=== PATIENT | female | born 1985 | race Caucasian/White ===

== ENCOUNTER 2018-01-01 09:14 | Emergency (ER) | payer SELFPAY ==
--- NOTE | 2018-01-01 09:23 | ER ---
Nurse's Notes [facility] Name: Mira Trinidad Age: 32 yrs Sex: Female : 1985 Arrival Date: 01/01/2018 Time: 09:17 Bed Waiting Private MD: None, None Diagnosis: Otalgia, right ear Presentation: 01/01 09:18 Presenting complaint: Patient states: Right ear pain since sunday. Transition of la1 care: patient was not received from another setting of care. Onset of symptoms was January 01, 2018. Risk Assessment: Do you want to hurt yourself or someone else? Patient reports no desire to harm self or others. Initial Sepsis Screen: Does the patient meet any 2 criteria? No. Patient's initial sepsis screen is negative. Does the patient have a suspected source of infection? No. Patient's initial sepsis screen is negative. Care prior to arrival: None. 09:18 Method Of Arrival: Ambulatory la1 09:18 Acuity: MARK ANTHONY 5 la1 Historical: - Allergies: 09:19 No Known Allergies; la1 - PMHx: 09:19 Asthma; la1 - Immunization history:: Adult Immunizations up to date. - Social history:: Smoking status: Patient uses tobacco products, smokes one-half pack cigarettes per day. - Ebola Screening: : No symptoms or risks identified at this time. Screenin:20 Abuse screen: Denies threats or abuse. Nutritional screening: No deficits noted. la1 Tuberculosis screening: No symptoms or risk factors identified. Fall Risk None identified. Assessment: 09:20 General: Appears in no apparent distress. Behavior is calm, cooperative. Pain: la1 Complains of pain in right ear. Neuro: Level of Consciousness is awake, alert, obeys commands, Oriented to person, place, time, situation. Cardiovascular: Capillary refill < 3 seconds Patient's skin is warm and dry. Respiratory: Airway is patent Respiratory effort is even, unlabored, Respiratory pattern is regular, symmetrical. GI: No signs and/or symptoms were reported involving the gastrointestinal system. : No signs and/or symptoms were reported regarding the genitourinary system. EENT: Ear canal clear on right ear and left ear. Vital Signs: 09:19 BP 154 / 98; Pulse 95; Resp 18; Temp 97.7(TE); Pulse Ox 100% on R/A; Weight 68.04 kg; la1 Height 5 ft. 6 in. (167.64 cm); 09:19 Body Mass Index 24.21 (68.04 kg, 167.64 cm) la1 ED Course: 09:17 Patient arrived in ED. mr 09:18 None, None is Private Physician. mr 09:18 [facility] Demp[facility]C [facility]. kb 09:18 Morteza Campos MD is Attending Physician. kb 09:19 Triage completed. la1 09:20 Arm band placed on left wrist. la1 09:20 Patient has correct armband on for positive identification. la1 09:20 No provider procedures requiring assistance completed. Patient did not have IV access la1 during this emergency room visit. Administered Medications: No medications were administered Outcome: :23 Discharge ordered by . kb 09:25 Discharged to home ambulatory. la1 09:25 Condition: stable 09:25 Discharge instructions given to patient, Instructed on discharge instructions, follow up and referral plans. Demonstrated understanding of instructions, follow-up care. 09:25 Patient left the ED. la1 Signatures: Astrid Dempsey FNP-C FNP-Gia Deanne Guaman, Shun, RN RN la1
--- NOTE | 2018-01-01 09:23 | EDPHYS ---
Physician Documentation [facility] Name: Mira Trinidad Age: 32 yrs Sex: Female : 1985 Arrival Date: 01/01/2018 Time: 09:17 Bed Waiting Private MD: None, None ED Physician Morteza Campos HPI: 01/01 09:24 This 32 yrs old Female presents to ER via Ambulatory with complaints of Ear kb Pain. 09:24 The patient presents with pain, moderate. The complaints affect the right ear. Onset: kb The symptoms/episode began/occurred 5 day(s) ago. Modifying factors: The symptoms are alleviated by nothing, the symptoms are aggravated by nothing. Associated signs and symptoms: The patient has no apparent associated signs or symptoms. Severity of symptoms: At their worst the symptoms were moderate in the emergency department the symptoms are unchanged. The patient has not experienced similar symptoms in the past. The patient has not recently seen a physician. Historical: - Allergies: 09:19 No Known Allergies; la1 - PMHx: 09:19 Asthma; la1 - Immunization history:: Adult Immunizations up to date. - Social history:: Smoking status: Patient uses tobacco products, smokes one-half pack cigarettes per day. - Ebola Screening: : No symptoms or risks identified at this time. ROS: 09:24 Constitutional: Negative for fever, chills, and weight loss, Cardiovascular: Negative kb for chest pain, palpitations, and edema, Respiratory: Negative for shortness of breath, cough, wheezing, and pleuritic chest pain, Abdomen/GI: Negative for abdominal pain, nausea, vomiting, diarrhea, and constipation, Back: Negative for injury and pain, : Negative for injury, bleeding, discharge, and swelling, MS/Extremity: Negative for injury and deformity, Skin: Negative for injury, rash, and discoloration, Neuro: Negative for headache, weakness, numbness, tingling, and seizure. 09:24 ENT: Positive for ear pain. Exam: 09:24 Constitutional: This is a well developed, well nourished patient who is awake, alert, kb and in no acute distress. Head/Face: Normocephalic, atraumatic. ENT: Nares patent. No nasal discharge, no septal abnormalities noted. Tympanic membranes are normal and external auditory canals are clear. Oropharynx with no redness, swelling, or masses, exudates, or evidence of obstruction, uvula midline. Mucous membranes moist. Neck: Trachea midline, no thyromegaly or masses palpated, and no cervical lymphadenopathy. Supple, full range of motion without nuchal rigidity, or vertebral point tenderness. No Meningismus. Chest/axilla: Normal chest wall appearance and motion. Nontender with no deformity. No lesions are appreciated. Cardiovascular: Regular rate and rhythm with a normal S1 and S2. No gallops, murmurs, or rubs. Normal PMI, no JVD. No pulse deficits. Respiratory: Lungs have equal breath sounds bilaterally, clear to auscultation and percussion. No rales, rhonchi or wheezes noted. No increased work of breathing, no retractions or nasal flaring. Abdomen/GI: Soft, non-tender, with normal bowel sounds. No distension or tympany. No guarding or rebound. No evidence of tenderness throughout. Skin: Warm, dry with normal turgor. Normal color with no rashes, no lesions, and no evidence of cellulitis. MS/ Extremity: Pulses equal, no cyanosis. Neurovascular intact. Full, normal range of motion. Neuro: Awake and alert, GCS 15, oriented to person, place, time, and situation. Cranial nerves II-XII grossly intact. Motor strength 5/5 in all extremities. Sensory grossly intact. Cerebellar exam normal. Normal gait. Vital Signs: 09:19 BP 154 / 98; Pulse 95; Resp 18; Temp 97.7(TE); Pulse Ox 100% on R/A; Weight 68.04 kg; la1 Height 5 ft. 6 in. (167.64 cm); 09:19 Body Mass Index 24.21 (68.04 kg, 167.64 cm) la1 MDM: 09:18 Patient medically screened. kb 09:24 Data reviewed: vital signs, nurses notes. Data interpreted: Pulse oximetry: on room air kb is 100 %. Interpretation: normal. Counseling: I had a detailed discussion with the patient and/or guardian regarding: the historical points, exam findings, and any diagnostic results supporting the discharge/admit diagnosis, the need for outpatient follow up, an ENT specialist, to return to the emergency department if symptoms worsen or persist or if there are any questions or concerns that arise at home. Administered Medications: No medications were administered Disposition: 18:40 Co-signature as Attending Physician, Morteza Campos MD available for consultation at ps1 all times. Disposition: 01/01/18 09:23 Discharged to Home. Impression: Otalgia, right ear. - Condition is Stable. - Discharge Instructions: Earache, Adult. - Medication Reconciliation Form, Thank You Letter, Antibiotic Education, Prescription Opioid Use, Work release form form. - Follow up: Emergency Department; When: As needed; Reason: Worsening of condition. Follow up: Private Physician; When: 2 - 3 days; Reason: Recheck today's complaints, Continuance of care, Re-evaluation by your physician. Signatures: Astrid Dempsey, JAYDEC [employer] THREADING MACHINE FEEDER-Shun Jiang RN RN la1 Morteza Campos MD MD ps1 Corrections: (The following items were deleted from the chart) 09:25 09:23 01/01/2018 09:23 Discharged to Home. Impression: Otalgia, right ear. Condition is la1 Stable. Forms are Work release form, Medication Reconciliation Form, Thank You Letter, Antibiotic Education, Prescription Opioid Use. Follow up: Emergency Department; When: As needed; Reason: Worsening of condition. Follow up: Private Physician; When: 2 - 3 days; Reason: Recheck today's complaints, Continuance of care, Re-evaluation by your physician. kb
[2018-01-01 09:32] VITALS: BP 154/98; TEMP 97.7; O2SAT 100
== END 2018-01-01 09:25 | disposition home or self-care (01) ==
LOC: ER 09:14
DX: H92.01 Otalgia, right ear (principal); F17.210 Nicotine dependence, cigarettes, uncomplicated
CPT/HCPCS: 99281

== ENCOUNTER 2018-03-26 11:12 | Emergency (ER) | payer SELFPAY ==
[2018-03-26 12:09] LABS: Absolute Lymphocytes (CBC) 2.7 K/uL (0.7-4.9); Absolute Monocytes 1.2 K/uL (0.1-1.3); Absolute Neutrophil 8.9 K/uL (1.8-8.0); Basophils % 0.6 % (0-1.3); Eosinophils % 1.5 % (0-4.4); Hematocrit 40.4 % (36.0-45.0); Lymphocytes % 20.7 % (15.3-44.8); MPV 9.6 fL (7.6-11.3); RBC Red Blood Cell Count 4.67 M/uL (3.86-4.86)
[2018-03-26 12:22] LABS: Potassium 3.9 mmol/L (3.5-5.1)
--- NOTE | 2018-03-26 12:42 | RAD REPORT ---
EXAM DESCRIPTION: CT - CTFBWCON CLINICAL HISTORY: right facial swelling Dental abscess. COMPARISON: No comparisons TECHNIQUE: Axial 2 mm thick images of the face were obtained with sagittal and coronal reconstructio n images. All CT scans are performed using dose optimization technique as appropriate and may include automated exposure control or mA/KV adjustment according to patient size. FINDINGS: Periapical abscess is seen measuring 5 mm involving the right maxillary first premolar. Th ere is adjacent subperiosteal abscess present measuring 16 x 5 mm along the buccal surface of the max illa. Significant right-sided facial soft tissue swelling. Poor dentition with erosive changes and periapical abscess also seen involving the right posterior ma ndibular molars.No mandibular osteomyelitis. There is trace fluid is present in the right maxillary sinus. Mild mucoperiosteal thickening is seen of both maxillary antra and the anterior ethmoid air cells and right frontal sinus. Calcification is seen measuring 5 mm adjacent to the right submandibular gland may represent a saliva ry gland duct stone. Several prominent submandibular lymph nodes are present. The globes and orbital contents are grossly unremarkable. IMPRESSION: Significant right-sided facial soft tissue swelling likely result of subperiosteal odont ogenic abscess (16 x 5 mm) along the right maxilla buccal surface. Right submandibular sialolithiasis suspected.
[2018-03-26] MEDS ORDERED: BUPIVACAINE 0.5% PF 10 ML VIAL ONE (13:49)
[2018-03-26] MEDS ORDERED: LIDOCAINE 1% W/EPI 1:100,000 MDV 50 ML VIAL ONE (13:49)
[2018-03-26] MEDS ORDERED: DEXAMETHASONE 10 MG/ML VIAL ONE (14:04)
[2018-03-26] MEDS ORDERED: CLINDAMYCIN 900MG/D5W 900 MG/50 ML IVPB IV ONE (14:05)
[2018-03-26] MEDS ORDERED: MORPHINE 4 MG/ML SYR ONE (14:05)
[2018-03-26] MEDS ORDERED: MEPERIDINE HCL 25 MG/0.5 ML ONE (14:45)
--- NOTE | 2018-03-26 15:08 | ER ---
Nurse's Notes [facility] Name: Mira Trinidad Age: 32 yrs Sex: Female : 1985 Arrival Date: 03/26/2018 Time: 11:14 Bed Treatment Private MD: None, None Diagnosis: Subperiosteal odontogenic abscess;Sialolithiasis-Right submandibular Presentation: 03/26 11:21 Presenting complaint:. Transition of care: patient was not received from another setting of care. Onset of symptoms was March 26, 2018. Risk Assessment: Do you want to hurt yourself or someone else? Patient reports no desire to harm self or others. Initial Sepsis Screen: Does the patient meet any 2 criteria? No. Patient's initial sepsis screen is negative. Does the patient have a suspected source of infection? No. Patient's initial sepsis screen is negative. Care prior to arrival: None. 11:21 Method Of Arrival: Ambulatory sg 11:21 Acuity: MARK ANTHONY 3 sg 11:22 Presenting complaint: Patient states: Right sided upper jaw pain with swelling this sg morning, reports was recently sick with viral infection and then this showed up. 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 - Social history:: Smoking status: Patient uses tobacco products, 10 per day. - Ebola Screening: : Patient negative for fever greater than or equal to 101.5 degrees Fahrenheit, and additional compatible Ebola Virus Disease symptoms Patient denies exposure to infectious person Patient denies travel to an Ebola-affected area in the 21 days before illness onset No symptoms or risks identified at this time. Screenin:37 Abuse screen: Denies threats or abuse. Denies injuries from another. Nutritional sg screening: No deficits noted. Tuberculosis screening: No symptoms or risk factors identified. Never had TB. Fall Risk None identified. Assessment: 11:34 General: Appears in no apparent distress. comfortable, well groomed, well developed, sg well nourished, Behavior is calm, cooperative, appropriate for age. Pain: Complains of pain in right cheek and right jaw Quality of pain is described as throbbing. Neuro: No deficits noted. Cardiovascular: Capillary refill is brisk in bilateral fingers Patient's skin is warm and dry. Respiratory: No deficits noted. GI: No deficits noted. No signs and/or symptoms were reported involving the gastrointestinal system. : No deficits noted. No signs and/or symptoms were reported regarding the genitourinary system. EENT: Oral mucosa is moist. Poor dentition noted. Throat is clear Reports pain in right cheek and right jaw. Derm: Skin is pink, warm \T\ dry. Musculoskeletal: Swelling present in right cheek. 14:21 Reassessment: Patient appears in no apparent distress at this time. Patient and/or iw family updated on plan of care and expected duration. Pain level reassessed. Patient is alert, oriented x 3, equal unlabored respirations, skin warm/dry/pink. Vital Signs: 11:21 BP 137 / 81; Pulse 113; Resp 17; Temp 98.2; Pulse Ox 99% ; Weight 66.68 kg; Height 5 sg ft. 6 in. (167.64 cm); Pain 7/10; 14:21 BP 125 / 78; Pulse 99; Resp 16; Pulse Ox 98% on R/A; Pain 5/10; iw 15:31 BP 122 / 78; Pulse 90; Resp 18; Pulse Ox 100% on R/A; Pain 0/10; mg2 11:21 Body Mass Index 23.73 (66.68 kg, 167.64 cm) sg ED Course: 11:14 Patient arrived in ED. mr 11:15 None, None is Private Physician. mr 11:21 Triage completed. sg 11:21 Arm band placed on. sg 11:33 Katherine Eid, RN is Primary Nurse. iw 11:36 No provider procedures requiring assistance completed. sg 11:37 Dioni Martinez PA is PHCP. cp 11:37 [place] MD is Attending Physician. cp 11:37 Patient has correct armband on for positive identification. Call light in reach. Pulse sg ox on. NIBP on. 11:59 Initial lab(s) drawn, by me, sent to lab. Inserted saline lock: in right antecubital em1 area, using aseptic technique. Blood collected. 12:24 CT completed. Patient tolerated procedure well. Patient moved to CT via wheelchair. jg6 Patient moved back from CT. 12:28 CT Facial Bones W/ Con \T\ Mpr In Process Unspecified. EDMS 15:06 Percy Mi DDS is Referral Physician. cp 15:31 IV discontinued, intact, bleeding controlled, No redness/swelling at site. Pressure mg2 dressing applied. Administered Medications: 14:10 Drug: Decadron - Dexamethasone 10 mg Route: IVP; Site: right antecubital; iw 15:11 Follow up: Response: No adverse reaction iw 14:18 Drug: Clindamycin 900 mg Route: IVPB; Infused Over: 30 mins; Site: right antecubital; iw 15:11 Follow up: IV Status: Completed infusion iw 14:25 Not Given (Patient Refused): morphine 2 mg IVP once iw 14:40 Drug: Demerol 25 mg Route: IVP; Site: right antecubital; sg 15:11 Follow up: Response: No adverse reaction; Pain is decreased iw Outcome: 15:07 Discharge ordered by MD. cp 15:32 Discharged to home ambulatory, with family. mg2 15:32 Condition: stable 15:32 Discharge instructions given to patient, family, Instructed on discharge instructions, follow up and referral plans. medication usage, Demonstrated understanding of instructions, follow-up care, medications, Prescriptions given X 3. 15:32 Patient left the ED. mg2 Signatures: Dispatcher [employer] EDOR Fransisco Christian RN LUIS ANTONIO sg Deanne Guaman Irene, RN RN iw Jose Carlos Arias em1 Dioni Martinez, RAHUL PA cp Edin Celis RN RN mg2 Tiago, Margarette jg6 Corrections: (The following items were deleted from the chart) 12:31 11:21 Acuity: MARK ANTHONY 4 sg sg
--- NOTE | 2018-03-26 15:08 | EDPHYS ---
Physician Documentation [facility] Name: Mira Trinidad Age: 32 yrs Sex: Female : 1985 Arrival Date: 03/26/2018 Time: 11:14 Bed Treatment Private MD: None, None ED Physician [place] HPI: 03/26 11:46 This 32 yrs old Female presents to ER via Ambulatory with complaints of cp abscess tooth. 11:46 The patient presents with pain, swelling. The problem is located in the right upper jaw.cp 11:46 Onset: The symptoms/episode began/occurred this morning. Duration: The symptoms are cp continuous, and are steadily getting worse. Associated signs and symptoms: Pertinent positives: swelling, Pertinent negatives: anorexia, dysphagia, fever, inability to eat. Severity of symptoms: in the emergency department the symptoms are unchanged, despite home interventions. 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 - Social history:: Smoking status: Patient uses tobacco products, 10 per day. - Ebola Screening: : Patient negative for fever greater than or equal to 101.5 degrees Fahrenheit, and additional compatible Ebola Virus Disease symptoms Patient denies exposure to infectious person Patient denies travel to an Ebola-affected area in the 21 days before illness onset No symptoms or risks identified at this time. ROS: 11:47 Eyes: Negative for injury, pain, redness, and discharge. cp 11:47 Constitutional: Negative for body aches, chills, fever, poor PO intake. 11:47 ENT: Positive for dental pain. 11:47 Respiratory: Negative for cough, shortness of breath, wheezing. 11:47 Abdomen/GI: Negative for abdominal pain, nausea, vomiting, and diarrhea. 11:47 Skin: Positive for swelling, of the right facial cheek. 11:47 Neuro: Negative for altered mental status, headache, weakness. 11:47 All other systems are negative. Exam: 11:55 Constitutional: The patient appears in no acute distress, alert, awake, cp non-diaphoretic, non-toxic, well developed, well nourished, uncomfortable. 11:55 Head/face: Noted is swelling, that is moderate, of the right cheek and right upper cp jaw, tenderness, that is moderate. 11:55 Eyes: Periorbital structures: swelling, that is mild, on the right infraorbital area, Pupils: equal, round, and reactive to light and accomodation, Extraocular movements: intact throughout, Conjunctiva: normal, no exudate, no injection, Lids and lashes: appear normal, bilaterally. 11:55 ENT: External ear(s): are unremarkable, Ear canal(s): are normal, clear, TM's: bulging, is not appreciated, bilaterally, dullness, bilaterally, erythema, is not appreciated, bilaterally, Nose: is normal, Mouth: Lips: moist, Oral mucosa: moist, Tongue: is normal, drooling, is not appreciated, Posterior pharynx: Airway: no evidence of obstruction, patent, Tonsils: are normal in appearance, Uvula: midline, swelling, is not appreciated, erythema, is not appreciated, exudate, is not appreciated, Dental exam: abscess, specifically in the right upper outer gumline, dental caries, that is moderate, diffusely, fractured teeth are noted, diffusely, gum swelling, that is mild, specifically in the right upper gumline, missing teeth, diffusely, Voice: is normal. 11:55 Neck: ROM/movement: is normal, is supple, without pain, no range of motions limitations, no nuchal rigidity. 11:55 Chest/axilla: Inspection: normal, Palpation: is normal, no crepitus, no tenderness. 11:55 Cardiovascular: Rate: tachycardic, Rhythm: regular. 11:55 Respiratory: the patient does not display signs of respiratory distress, Respirations: normal, no use of accessory muscles, no retractions, no splinting, no tachypnea, labored breathing, is not present, Breath sounds: are clear throughout, no decreased breath sounds, no stridor, no wheezing. 11:55 Abdomen/GI: Inspection: abdomen appears normal, Palpation: abdomen is soft and non-tender, in all quadrants. Vital Signs: 11:21 BP 137 / 81; Pulse 113; Resp 17; Temp 98.2; Pulse Ox 99% ; Weight 66.68 kg; Height 5 sg ft. 6 in. (167.64 cm); Pain 7/10; 14:21 BP 125 / 78; Pulse 99; Resp 16; Pulse Ox 98% on R/A; Pain 5/10; iw 15:31 BP 122 / 78; Pulse 90; Resp 18; Pulse Ox 100% on R/A; Pain 0/10; mg2 11:21 Body Mass Index 23.73 (66.68 kg, 167.64 cm) sg Procedures: 15:00 I \T\ D: Incision and drainage was performed for an abscess of the right upper outer cp gumline Anesthetized with 5 ccs of 50/50 mixture 1% lidocaine with epi and 0.5% marcaine. Incised with #11 blade. Drained small amount purulent fluid. bloody fluid. the patient tolerated the procedure well. MDM: 11:37 Patient medically screened. cp 12:00 Differential diagnosis: dental caries, dental abscess, pericoronitis. cp 15:05 Data reviewed: vital signs, nurses notes, lab test result(s), radiologic studies, CT cp scan, I have discussed the patient's presentation/case with the attending Emergency Department Physician; and as a result, I will discharge patient. 03/26 11:45 Order name: CBC with Diff; Complete Time: 12:28 cp 03/26 12:29 Interpretation: Normal except: WBC 13.1; NEUT A 8.9. cp 03/26 11:45 Order name: BMP; Complete Time: 12:28 cp 03/26 11:45 Order name: CT Facial Bones W/ Con \T\ Mpr; Complete Time: 13:18 cp 03/26 11:45 Order name: IV; Complete Time: 11:59 cp 03/26 13:30 Order name: I\T\D Setup; Complete Time: 13:51 cp Administered Medications: 14:10 Drug: Decadron - Dexamethasone 10 mg Route: IVP; Site: right antecubital; iw 15:11 Follow up: Response: No adverse reaction iw 14:18 Drug: Clindamycin 900 mg Route: IVPB; Infused Over: 30 mins; Site: right antecubital; iw 15:11 Follow up: IV Status: Completed infusion iw 14:25 Not Given (Patient Refused): morphine 2 mg IVP once iw 14:40 Drug: Demerol 25 mg Route: IVP; Site: right antecubital; sg 15:11 Follow up: Response: No adverse reaction; Pain is decreased iw Disposition: 15:45 Chart complete. cp Disposition: 03/26/18 15:07 Discharged to Home. Impression: Subperiosteal odontogenic abscess, Sialolithiasis - Right submandibular. - Condition is Stable. - Discharge Instructions: Dental Abscess, Dental Pain, Diet and Dental Disease, Salivary Stone. - Prescriptions for Peridex 0.12 % Mucous Membrane mouthwash - place 15 milliliter by MUCOUS MEMBRANE route 2 times per day for 6 weeks (after meals), swish in mouth for 30 seconds then spit out; 2 bottle. Clindamycin HCl 300 mg Oral Capsule - take 1 capsule by ORAL route every 6 hours for 10 days; 40 capsule. Tylenol- Codeine #3 300-30 mg Oral Tablet - take 2 tablets by ORAL route every 6 hours As needed; 20 tablet. - Medication Reconciliation Form, Thank You Letter, Antibiotic Education, Prescription Opioid Use form. - Work release form (03/28/18 16:06). eb - Follow up: Percy Mi DDS; When: 2 - 3 days; Reason: Recheck today's complaints. - Problem is new. - Symptoms have improved. Addendum: 03/29/2018 01:34 Co-signature as Attending Physician, [place] MD. g s Signatures: Dispatcher [employer] EDMS Fransisco Christian RN RN sg Katherine Eid RN RN iw Dioni Martinez PA PA [place] MD MD Edin Celis RN RN [facility] Shirlene Banda Corrections: (The following items were deleted from the chart) 03/26 12:22 11:45 Urine Test ordered. cp iw 12:29 12:28 Normal except: WBC 13.1. cp cp 12:59 11:45 Urine Dipstick-Ancillary ordered. cp iw 15:10 15:07 03/26/2018 15:07 Discharged to Home. Impression: Periapical abscess without cp sinus. Condition is Stable. Forms are Medication Reconciliation Form, Thank You Letter, Antibiotic Education, Prescription Opioid Use. Follow up: Percy Mi; When: 2 - 3 days; Reason: Recheck today's complaints. Problem is new. Symptoms have improved. cp 15:32 15:10 03/26/2018 15:07 Discharged to Home. Impression: Subperiosteal odontogenic mg2 abscess; Sialolithiasis - Right submandibular. Condition is Stable. Forms are Medication Reconciliation Form, Thank You Letter, Antibiotic Education, Prescription Opioid Use. Follow up: Percy Mi; When: 2 - 3 days; Reason: Recheck today's complaints. Problem is new. Symptoms have improved. cp
[2018-03-26 16:07] VITALS: TEMP 98.2
[2018-03-26 16:11] VITALS: BP 122/78; O2SAT 100
== END 2018-03-26 15:32 | disposition home or self-care (01) ==
LOC: ER 11:12
PROC: 0C95XZZ Drainage of Upper Gingiva, External Approach (ICD-10-PCS; principal; 2018-03-26)
DX: K04.7 Periapical abscess without sinus (principal); K02.9 Dental caries, unspecified; K11.5 Sialolithiasis; Z72.0 Tobacco use
CPT/HCPCS: 36415; 70487; 76377; 80048; 85025; 96365; 96375; 99284; J1100; J2175; Q9967

== ENCOUNTER 2018-11-16 09:55 | Emergency (ER) | payer SELFPAY ==
[2018-11-16] MEDS ORDERED: ALBUTEROL 2.5 MG/3 ML NEB SOL ONE (11:11)
[2018-11-16] MEDS ORDERED: IPRATROPIUM BROM 0.5MG/2.5ML ONE (11:11)
[2018-11-16] MEDS ORDERED: HYDROCODONE/CHLORPHEN 5 ML/OSYR ONE (12:14)
[2018-11-16] MEDS ORDERED: predniSONE 20 MG TAB ONE (12:14)
[2018-11-16] MEDS ORDERED: DOXYCYCLINE 100 MG CAP PO ONE (12:14)
--- NOTE | 2018-11-16 12:38 | EDPHYS ---
Physician Documentation [facility] Name: Mira Trinidad Age: 33 yrs Sex: Female : 1985 Arrival Date: 11/16/2018 Time: 09:56 Bed 14 Private MD: ED Physician Miah Bolanos HPI: 11/16 11:06 This 33 yrs old Female presents to ER via Ambulatory with complaints of rh1 Cough, Congestion, Fever, Diarrhea, InQuicker. 11:06 Onset: The symptoms/episode began/occurred 3 day(s) ago. Severity of symptoms: At their rh1 worst the symptoms were moderate, in the emergency department the symptoms are unchanged. Modifying factors: The symptoms are alleviated by inhaler, the symptoms are aggravated by nothing. Associated signs and symptoms: Pertinent positives: diarrhea, fever, nausea, rhinorrhea, sore throat, Pertinent negatives: chest pain, ear ache, vomiting. The patient has experienced similar episodes in the past. The patient has not recently seen a physician. Started with sore throat, nasal congestion and sinus pressure, with coughing 3 days ago. Fever at 102 yesterday, with productive coughing that is yellow, dry coughing today. Diarrhea started yesterday, 3 - 4 episodes, non - bloody. Has increased liquid intake, denies any N/V. Hx of asthma, using albuterol PRN, last this am with mild improvement in coughing. Denies any SOB, no chest pain.. 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 - Social history:: Smoking status: Patient uses tobacco products, smokes one pack cigarettes per day. - Ebola Screening: : Patient denies exposure to infectious person Patient denies travel to an Ebola-affected area in the 21 days before illness onset. ROS: 11:06 Constitutional: Negative weight loss. rh1 11:06 Constitutional: Positive for fever. 11:06 Constitutional: Positive for chills, Negative for poor PO intake. 11:06 ENT: Positive for nasal discharge, rhinorrhea, sinus congestion, Negative for ear pain, pulling at ears. 11:06 Neck: Negative for pain with movement, pain at rest. 11:06 Cardiovascular: Negative for chest pain, edema, palpitations. 11:06 Respiratory: Positive for cough, wheezing, Negative for hemoptysis, shortness of breath. 11:06 Abdomen/GI: Positive for diarrhea, Negative for abdominal pain, nausea, vomiting. 11:06 Back: Negative for decreased range of motion, pain at rest, pain with movement, radiated pain. 11:06 : Negative for urinary symptoms, small amounts. 11:06 Neuro: Negative for altered mental status, dizziness, headache. 11:06 All other systems are negative. Exam: 11:06 Constitutional: This is a well developed, well nourished patient who is awake, alert, rh1 and in no acute distress. Head/Face: Normocephalic, atraumatic. 11:06 Neck: Trachea midline, and no cervical lymphadenopathy. Supple, full range of motion without nuchal rigidity. No Meningismus. Chest/axilla: Normal chest wall appearance and motion. Nontender with no deformity. No lesions are appreciated. Cardiovascular: Regular rate and rhythm with a normal S1 and S2. No gallops, murmurs, or rubs. No JVD. No pulse deficits. 11:06 Abdomen/GI: Soft, non-tender, with normal bowel sounds. No distension. No guarding or rebound. No evidence of tenderness throughout. Back: No spinal tenderness. No costovertebral tenderness. Full range of motion. Skin: Warm, dry with normal turgor. Normal color with no rashes, no lesions, and no evidence of cellulitis. MS/ Extremity: Pulses equal, no cyanosis. Neurovascular intact. Full, normal range of motion. 11:06 ENT: External ear(s): are unremarkable, no pain with movement, Ear canal(s): are normal, no cerumen impaction, no erythema, no foreign body, no purulent discharge, no swelling, TM's: are normal, no evidence of bulging, no dullness, no erythema, no fluid levels, no hemotympanum, no rupture, normal bony landmarks, Nose: Nasal septum: is midline, Nasal mucosa: edematous, erythematous, Turbinates: are swollen bilaterally, nasal drainage, is not appreciated, Mouth: is normal, no lip abnormalities, no mucosal abnormalities, Posterior pharynx: is normal, airway is patent, no erythema, no exudate, no peritonsilar mass, no pooling of secretions, no swelling, normal tonsil apperance, normal sized tonsils, normal uvula appearance, normal uvula size. 11:06 Respiratory: the patient does not display signs of respiratory distress, Respirations: normal, symetrical, no use of accessory muscles, no prolonged exhalations, no pursed lip breathing, no retractions, no tachypnea, Breath sounds: wheezing: that is moderate, is scattered. 11:06 Neuro: Orientation: is normal, to person, place \T\ time. Mentation: is normal, lucid, able to follow commands, Motor: is normal, moves all fours, strength is normal, Sensation: is normal, no obvious gross deficits, Gait: is steady, at a normal pace, without difficulty. Vital Signs: 10:15 BP 136 / 94; Pulse 91; Resp 18; Temp 97.8(TE); Pulse Ox 98% on R/A; Weight 68.04 kg; ss Height 5 ft. 6 in. (167.64 cm); Pain 7/10; 11:15 BP 141 / 97; Pulse 109; Resp 19; Pulse Ox 99% on R/A; rb1 12:15 BP 137 / 90; Pulse 107; Resp 17; Pulse Ox 100% on R/A; Pain 6/10; rb1 10:15 Body Mass Index 24.21 (68.04 kg, 167.64 cm) ss MDM: 11:06 Patient medically screened. 1 12:38 Data reviewed: vital signs, nurses notes, and as a result, I will discharge patient. rh1 Data interpreted: Pulse oximetry: on room air is 100 %. Interpretation: normal. Counseling: I had a detailed discussion with the patient and/or guardian regarding: the historical points, exam findings, and any diagnostic results supporting the discharge/admit diagnosis, the need for outpatient follow up, a family practitioner, to return to the emergency department if symptoms worsen or persist or if there are any questions or concerns that arise at home. Special discussion: I discussed with the patient/guardian in detail that at this point there is no indication for admission to the hospital. It is understood, however, that if the symptoms persist or worsen the patient needs to return immediately for re-evaluation. Administered Medications: 11:10 Drug: Albuterol - atroVENT (3:1) (2.5 mg - 0.5 mg) 3 ml Route: Nebulizer; rb1 12:47 Follow up: Response: No adverse reaction; Marked relief of symptoms ph 12:17 Drug: Tussionex Pennkinetic ER 5 ml Route: PO; rb1 12:47 Follow up: Response: No adverse reaction; Marked relief of symptoms ph 12:17 Drug: Doxycycline 100 mg Route: PO; rb1 12:47 Follow up: Response: No adverse reaction; Marked relief of symptoms ph 12:18 Drug: predniSONE 60 mg Route: PO; rb1 12:47 Follow up: Response: No adverse reaction; Marked relief of symptoms ph Disposition: 17:54 Co-signature as Attending Physician, Miah Bolanos MD. rn Disposition: 11/16/18 12:37 Discharged to Home. Impression: Acute upper respiratory infection, unspecified, Asthma. - Condition is Stable. - Discharge Instructions: Asthma, Adult, Upper Respiratory Infection, Adult, Cough, Adult. - Prescriptions for Tessalon Perles 100 mg Oral Capsule - take 1 capsule by ORAL route every 8 hours As needed; 15 capsule. Doxycycline Hyclate 100 mg Oral Tablet - take 1 tablet by ORAL route every 12 hours; 20 tablet. Prednisone 20 mg Oral Tablet - take 3 tablet by ORAL route once daily for 5 days; 15 tablet. - Medication Reconciliation Form, Thank You Letter, Antibiotic Education, Prescription Opioid Use form. - Work release form (11/16/18 13:14). bd - Follow up: Private Physician; When: 2 - 3 days; Reason: Recheck today's complaints, Continuance of care, Re-evaluation by your physician. Follow up: Emergency Department; When: As needed; Reason: Fever > 102 F, If symptoms return, Trouble breathing. - Problem is new. - Symptoms have improved. Signatures: Miah Bolanos MD MD rn Smirch, Shelby, RN RN Danielle Sebastian RN RN ph Steve, Marika, NEWS PRODUCTION ASSISTANT NEWS PRODUCTION ASSISTANT rh1 Padmini Leone, RN RN rb1 Keisha Pineda bd Corrections: (The following items were deleted from the chart) 12:43 11:04 Urine Test ordered. 1 rb1 12:50 12:37 11/16/2018 12:37 Discharged to Home. Impression: Acute upper respiratory ph infection, unspecified; Asthma. Condition is Stable. Discharge Instructions: Upper Respiratory Infection, Adult, Cough, Adult, Asthma, Adult. Prescriptions for Tessalon Perles 100 mg Oral Capsule - take 1 capsule by ORAL route every 8 hours As needed; 15 capsule, Doxycycline Hyclate 100 mg Oral Tablet - take 1 tablet by ORAL route every 12 hours; 20 tablet, Prednisone 20 mg Oral Tablet - take 3 tablet by ORAL route once daily for 5 days; 15 tablet. and Forms are Medication Reconciliation Form, Thank You Letter, Antibiotic Education, Prescription Opioid Use. Follow up: Private Physician; When: 2 - 3 days; Reason: Recheck today's complaints, Continuance of care, Re-evaluation by your physician. Follow up: Emergency Department; When: As needed; Reason: Fever > 102 F, If symptoms return, Trouble breathing. Problem is new. Symptoms have improved. rh1
--- NOTE | 2018-11-16 12:38 | ER ---
Nurse's Notes [facility] Name: Mira Trinidad Age: 33 yrs Sex: Female : 1985 Arrival Date: 11/16/2018 Time: 09:56 Bed 14 Private MD: Diagnosis: Acute upper respiratory infection, unspecified;Asthma Presentation: 11/16 10:16 Presenting complaint: Patient states: sore throat, sinus drainage and cough x 3 days. ss Fever x2 days and Diarrhea that began yesterday. Tylenol last taken at 0800. Transition of care: patient was not received from another setting of care. Resp Distress? No respiratory distress is noted at this time. Onset of symptoms was November 13, 2018. Risk Assessment: Do you want to hurt yourself or someone else? Patient reports no desire to harm self or others. Initial Sepsis Screen: Does the patient meet any 2 criteria? HR > 90 bpm. Does the patient have a suspected source of infection? No. Patient's initial sepsis screen is negative. Care prior to arrival: None. 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 - Social history:: Smoking status: Patient uses tobacco products, smokes one pack cigarettes per day. - Ebola Screening: : Patient denies exposure to infectious person Patient denies travel to an Ebola-affected area in the 21 days before illness onset. Screenin:45 Abuse screen: Denies threats or abuse. Nutritional screening: No deficits noted. rb1 Tuberculosis screening: No symptoms or risk factors identified. Fall Risk None identified. Assessment: 10:45 General: Appears uncomfortable, Behavior is calm, cooperative, Reports fever for 2-3 rb1 days. Pain: Complains of pain in ribs Pain currently is 7 out of 10 on a pain scale. Aggravated by coughing. Neuro: Level of Consciousness is awake, alert, obeys commands, Oriented to person, place, time, situation. Cardiovascular: Capillary refill < 3 seconds is brisk in bilateral fingers. Respiratory: Reports cough that is non-productive, pain with cough Airway is patent Respiratory effort is even, unlabored, Respiratory pattern is regular, symmetrical, Breath sounds with wheezes. GI: Last BM was November 16, 2018. Reports diarrhea. : No signs and/or symptoms were reported regarding the genitourinary system. EENT: Reports nasal congestion. 10:45 EENT: Reports Sore throat. Derm: Skin is pink, warm \T\ dry. rb1 11:40 Reassessment: Patient appears in no apparent distress at this time. No changes from rb1 previously documented assessment. 12:00 Reassessment: Pt. coughed up blood tinged sputum. Provider notified. rb1 12:20 Reassessment: Patient appears in no apparent distress at this time. Patient and/or rb1 family updated on plan of care and expected duration. Pain level reassessed. Patient is alert, oriented x 3, equal unlabored respirations, skin warm/dry/pink. Vital Signs: 10:15 BP 136 / 94; Pulse 91; Resp 18; Temp 97.8(TE); Pulse Ox 98% on R/A; Weight 68.04 kg; ss Height 5 ft. 6 in. (167.64 cm); Pain 7/10; 11:15 BP 141 / 97; Pulse 109; Resp 19; Pulse Ox 99% on R/A; rb1 12:15 BP 137 / 90; Pulse 107; Resp 17; Pulse Ox 100% on R/A; Pain 6/10; rb1 10:15 Body Mass Index 24.21 (68.04 kg, 167.64 cm) ED Course: 09:56 Patient arrived in ED. as 10:15 Arm band placed on right wrist. ss 10:17 Triage completed. ss 10:20 Marika Wilson NP is PHCP. rh1 10:20 Miah Bolanos MD is Attending Physician. rh1 10:45 Patient has correct armband on for positive identification. Bed in low position. Call rb1 light in reach. Side rails up X 1. Pulse ox on. NIBP on. Warm blanket given. 11:01 Padmini Leone, RN is Primary Nurse. rb1 12:49 No provider procedures requiring assistance completed. Patient did not have IV access ph during this emergency room visit. Administered Medications: 11:10 Drug: Albuterol - atroVENT (3:1) (2.5 mg - 0.5 mg) 3 ml Route: Nebulizer; rb1 12:47 Follow up: Response: No adverse reaction; Marked relief of symptoms ph 12:17 Drug: Tussionex Pennkinetic ER 5 ml Route: PO; rb1 12:47 Follow up: Response: No adverse reaction; Marked relief of symptoms ph 12:17 Drug: Doxycycline 100 mg Route: PO; rb1 12:47 Follow up: Response: No adverse reaction; Marked relief of symptoms ph 12:18 Drug: predniSONE 60 mg Route: PO; rb1 12:47 Follow up: Response: No adverse reaction; Marked relief of symptoms ph Outcome: 12:37 Discharge ordered by . rh1 12:49 Discharged to home ambulatory. ph 12:49 Condition: good 12:49 Discharge instructions given to patient, family, Instructed on discharge instructions, follow up and referral plans. medication usage, Demonstrated understanding of instructions, follow-up care, medications, Prescriptions given X 3. 12:50 Patient left the ED. ph Signatures: Zuleima Arias Shelby, RN RN Danielle Sebastian RN RN ph Marika Wilson, DECORATING MACHINE OPERATOR DECORATING MACHINE OPERATOR rh1 Padmini Leone, LUIS ANTONIO RN rb1 Corrections: (The following items were deleted from the chart) 16:15 10:45 Respiratory: Reports cough that is non-productive, pain with cough Airway is rb1 patent Respiratory effort is even, unlabored, Respiratory pattern is regular, symmetrical, rb1
[2018-11-16 13:44] VITALS: TEMP 97.8
[2018-11-16 13:47] VITALS: BP 137/90; O2SAT 100
== END 2018-11-16 12:50 | disposition home or self-care (01) ==
LOC: ER 09:55
DX: J06.9 Acute upper respiratory infection, unspecified (principal); J45.909 Unspecified asthma, uncomplicated; F17.210 Nicotine dependence, cigarettes, uncomplicated; Z88.6 Allergy status to analgesic agent
CPT/HCPCS: 94640; 99284; J7512

== ENCOUNTER 2018-11-26 09:31 | Emergency (ER) | payer SELFPAY ==
--- NOTE | 2018-11-26 10:20 | RAD REPORT ---
EXAM DESCRIPTION: Dolly Dickson (2 Views)11/26/2018 10:11 am CLINICAL HISTORY: Cough COMPARISON: 2014 FINDINGS: The lungs appear clear of acute infiltrate. The heart is normal size IMPRESSION: No acute abnormalities displayed
--- NOTE | 2018-11-26 10:51 | ER ---
Nurse's Notes [facility] Name: Mira Trinidad Age: 33 yrs Sex: Female : 1985 Arrival Date: 11/26/2018 Time: 09:34 Bed 19 Private MD: Diagnosis: Unspecified asthma with (acute) exacerbation Presentation: 11/26 09:36 Presenting complaint: Productive cough x 2 weeks, SOB and pain in mid back x 2 days. On hb doxycycline Day 10 for URI. Transition of care: patient was not received from another setting of care. Onset of symptoms was November 12, 2018. Risk Assessment: Do you want to hurt yourself or someone else? Patient reports no desire to harm self or others. Initial Sepsis Screen: Does the patient meet any 2 criteria? No. Patient's initial sepsis screen is negative. Does the patient have a suspected source of infection? No. Patient's initial sepsis screen is negative. Care prior to arrival: None. 09:36 Method Of Arrival: Ambulatory hb 09:36 Acuity: MARK ANTHONY 3 hb Triage Assessment: 09:40 General: Appears in no apparent distress. comfortable, Behavior is cooperative, bp appropriate for age, anxious. Pain: Denies pain. EENT: No deficits noted. Neuro: No deficits noted. Cardiovascular: No deficits noted. Respiratory: Airway is patent Respiratory effort is even, unlabored, Breath sounds with wheezes. GI: No signs and/or symptoms were reported involving the gastrointestinal system. : No signs and/or symptoms were reported regarding the genitourinary system. Derm: No signs and/or symptoms reported regarding the dermatologic system. Musculoskeletal: No deficits noted. No signs and/or symptoms reported regarding the musculoskeletal system. 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 - Social history:: Smoking status: Patient uses tobacco products, smokes one-half pack cigarettes per day. - Ebola Screening: : No symptoms or risks identified at this time. Screenin:17 Abuse screen: Denies injuries from another. Nutritional screening: No deficits noted. bp Tuberculosis screening: No symptoms or risk factors identified. Fall Risk None identified. Assessment: 09:40 General: SEE TRIAGE NOTE. bp 11:17 Reassessment: PT D/C HOME AMBULATORY WITH FAMILY, DX WITH ASTHMA EXACERBATION. bp Vital Signs: 09:38 BP 127 / 87; Pulse 85; Resp 16; Temp 97.2; Pulse Ox 97% on R/A; Weight 64.41 kg; Height hb 5 ft. 6 in. (167.64 cm); Pain 7/10; 11:19 BP 131 / 89; Pulse 74; Resp 14; Pulse Ox 98% ; bp 09:38 Body Mass Index 22.92 (64.41 kg, 167.64 cm) hb ED Course: 09:34 Patient arrived in ED. as 09:38 Triage completed. hb 09:38 Arm band placed on. hb 09:44 [facility]C [facility]. snw 09:44 Dioni Thrasher MD is Attending Physician. snw 09:45 Art Caban, LUIS ANTONIO is Primary Nurse. bp 10:12 Chest Pa And Lat (2 Views) XRAY In Process Unspecified. EDMS 11:17 Patient has correct armband on for positive identification. Bed in low position. Call bp light in reach. Side rails up X2. 11:18 No provider procedures requiring assistance completed. Patient did not have IV access bp during this emergency room visit. Administered Medications: 10:50 Drug: Tussionex Pennkinetic ER 5 ml Route: PO; bp 11:22 Follow up: Response: No adverse reaction bp 10:50 Drug: Phenergan 25 mg Route: PO; bp 11:22 Follow up: Response: No adverse reaction bp Outcome: 10:50 Discharge ordered by . snw 11:20 Discharged to home ambulatory, with family. bp 11:20 Condition: stable 11:20 Discharge instructions given to patient, Instructed on discharge instructions, follow up and referral plans. medication usage, Demonstrated understanding of instructions, follow-up care, medications, Prescriptions given X 3. 11:23 Patient left the ED. bp Signatures: Dispatcher [employer] EDMS Shireen Strong FNP-C FNP-Zuleima Dueñas Heather, RN RN Arsh, Art, RN RN bp
--- NOTE | 2018-11-26 10:51 | EDPHYS ---
Physician Documentation [facility] Name: Mira Trinidad Age: 33 yrs Sex: Female : 1985 Arrival Date: 11/26/2018 Time: 09:34 Bed 19 Private MD: ED Physician Dioni Thrasher HPI: 11/26 11:39 This 33 yrs old Female presents to ER via Ambulatory with complaints of Chest snw Congestion. 11:39 Onset: The symptoms/episode began/occurred 2 week(s) ago. Associated signs and snw symptoms: Pertinent positives: cough, back pain, Pertinent negatives: fever. The patient has experienced similar episodes in the past. The patient has been recently seen by a physician: The patient has been recently seen at the [facility] Emergency Department, a couple of weeks ago, for similar complaints getting better but then started to relapse. 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 - Social history:: Smoking status: Patient uses tobacco products, smokes one-half pack cigarettes per day. - Ebola Screening: : No symptoms or risks identified at this time. ROS: 11:26 Constitutional: Negative for fever, chills, and weight loss, Eyes: Negative for injury, snw pain, redness, and discharge, ENT: Negative for injury, pain, and discharge, Neck: Negative for injury, pain, and swelling, Cardiovascular: Negative for chest pain, palpitations, and edema, Abdomen/GI: Negative for abdominal pain, nausea, vomiting, diarrhea, and constipation, : Negative for injury, bleeding, discharge, and swelling, MS/Extremity: Negative for injury and deformity, Skin: Negative for injury, rash, and discoloration, Neuro: Negative for headache, weakness, numbness, tingling, and seizure, Psych: Negative for depression, anxiety, suicide ideation, homicidal ideation, and hallucinations. 11:26 Respiratory: Positive for cough, with no reported sputum, shortness of breath, wheezing. 11:26 Back: Positive for pain to mid back with cough. Exam: 11:26 Constitutional: This is a well developed, well nourished patient who is awake, alert, snw and in no acute distress. Head/Face: Normocephalic, atraumatic. Eyes: Pupils equal round and reactive to light, extra-ocular motions intact. Lids and lashes normal. Conjunctiva and sclera are non-icteric and not injected. Cornea within normal limits. Periorbital areas with no swelling, redness, or edema. ENT: Nares patent. No nasal discharge, no septal abnormalities noted. Tympanic membranes are normal and external auditory canals are clear. Oropharynx with no redness, swelling, or masses, exudates, or evidence of obstruction, uvula midline. Mucous membranes moist. Neck: Trachea midline, no thyromegaly or masses palpated, and no cervical lymphadenopathy. Supple, full range of motion without nuchal rigidity, or vertebral point tenderness. No Meningismus. Chest/axilla: Normal chest wall appearance and motion. Nontender with no deformity. No lesions are appreciated. Cardiovascular: Regular rate and rhythm with a normal S1 and S2. No gallops, murmurs, or rubs. Normal PMI, no JVD. No pulse deficits. Respiratory: Lungs have equal breath sounds bilaterally, clear to auscultation and percussion. No rales, rhonchi or wheezes noted. No increased work of breathing, no retractions or nasal flaring. Harsh dry, painful cough Abdomen/GI: Soft, non-tender, with normal bowel sounds. No distension or tympany. No guarding or rebound. No evidence of tenderness throughout. Back: No spinal tenderness. No costovertebral tenderness. Full range of motion. Skin: Warm, dry with normal turgor. Normal color with no rashes, no lesions, and no evidence of cellulitis. MS/ Extremity: Pulses equal, no cyanosis. Neurovascular intact. Full, normal range of motion. Neuro: Awake and alert, GCS 15, oriented to person, place, time, and situation. Cranial nerves II-XII grossly intact. Motor strength 5/5 in all extremities. Sensory grossly intact. Cerebellar exam normal. Normal gait. Psych: Awake, alert, with orientation to person, place and time. Behavior, mood, and affect are within normal limits. Vital Signs: 09:38 BP 127 / 87; Pulse 85; Resp 16; Temp 97.2; Pulse Ox 97% on R/A; Weight 64.41 kg; Height hb 5 ft. 6 in. (167.64 cm); Pain 7/10; 11:19 BP 131 / 89; Pulse 74; Resp 14; Pulse Ox 98% ; bp 09:38 Body Mass Index 22.92 (64.41 kg, 167.64 cm) hb MDM: 09:44 Patient medically screened. [facility] 11:24 Data reviewed: vital signs, nurses notes. Data interpreted: Pulse oximetry: on room air snw is 98 %. Interpretation: normal. Counseling: I had a detailed discussion with the patient and/or guardian regarding: the historical points, exam findings, and any diagnostic results supporting the discharge/admit diagnosis, the presence of at least one elevated blood pressure reading (>120/80) during this emergency department visit, the need for outpatient follow up, to return to the emergency department if symptoms worsen or persist or if there are any questions or concerns that arise at home. Special discussion: I have referred the patient to see his PCP for further evaluation of high blood pressure. Based on the history and exam findings, there is no indication for further emergent testing or inpatient evaluation. I discussed with the patient/guardian the need to see the primary care provider for further evaluation of the symptoms. 11:25 Counseling: I had a detailed discussion with the patient and/or guardian regarding: snw smoking cessation. 11/26 09:44 Order name: Chest Pa And Lat (2 Views) XRAY; Complete Time: 10:39 snw Administered Medications: 10:50 Drug: Tussionex Pennkinetic ER 5 ml Route: PO; bp 11:22 Follow up: Response: No adverse reaction bp 10:50 Drug: Phenergan 25 mg Route: PO; bp 11:22 Follow up: Response: No adverse reaction bp Disposition: 16:40 Co-signature as Attending Physician, Dioni Thrasher MD I agree with the assessment and [facility] plan of care. Disposition: 11/26/18 10:50 Discharged to Home. Impression: Unspecified asthma with (acute) exacerbation. - Condition is Stable. - Discharge Instructions: Asthma, Adult, Form - Asthma Action Plan, Adult. - Prescriptions for Advair Diskus 500- 50 mcg/Dose Inhalation Disk with Device - inhale 1 puff by INHALATION route every 12 hours; 1 packet. Medrol (Ruiz) 4 mg Oral Tablets, Dose Pack - take 1 tablet by ORAL route as directed - follow package instructions; 1 packet. Albuterol Sulfate 90 mcg/actuation - inhale 1-2 puff by INHALATION route every 4-6 hours; 1 Inhaler. promethazine 25 mg Oral Tablet - take 1 tablet by ORAL route every 6 hours As needed; 20 tablet. - Work release form, Medication Reconciliation Form, Thank You Letter, Antibiotic Education, Prescription Opioid Use form. - Follow up: Private Physician; When: 2 - 3 days; Reason: Recheck today's complaints, Continuance of care, Re-evaluation by your physician. Follow up: Emergency Department; When: As needed; Reason: Worsening of condition. Signatures: Dispatcher [employer] EDMS Dioni Thrasher MD MD cha Therrien, Shelly, SUPERVISOR BILLPOSTING-C SUPERVISOR BILLPOSTING-Csnw Susie Goodson, LUIS ANTONIO RN Art Caban RN RN bp Corrections: (The following items were deleted from the chart) 11:23 10:50 11/26/2018 10:50 Discharged to Home. Impression: Unspecified asthma with (acute) bp exacerbation. Condition is Stable. Discharge Instructions: Asthma, Adult, Form - Asthma Action Plan, Adult. Prescriptions for Advair Diskus 500-50 mcg/Dose Inhalation Disk with Device - inhale 1 puff by INHALATION route every 12 hours; 1 packet, Medrol (Ruiz) 4 mg Oral Tablets, Dose Pack - take 1 tablet by ORAL route as directed - follow package instructions; 1 packet, Albuterol Sulfate 90 mcg/actuation - inhale 1-2 puff by INHALATION route every 4-6 hours; 1 Inhaler, promethazine 25 mg Oral Tablet - take 1 tablet by ORAL route every 6 hours As needed; 20 tablet. and Forms are Work release form, Medication Reconciliation Form, Thank You Letter, Antibiotic Education, Prescription Opioid Use. Follow up: Private Physician; When: 2 - 3 days; Reason: Recheck today's complaints, Continuance of care, Re-evaluation by your physician. Follow up: Emergency Department; When: As needed; Reason: Worsening of condition. snw
[2018-11-26] MEDS ORDERED: HYDROCODONE/CHLORPHEN 5 ML/OSYR ONE (10:54)
[2018-11-26] MEDS ORDERED: PROMETHAZINE 25 MG TABLET ONE (10:55)
== END 2018-11-26 11:23 | disposition home or self-care (01) ==
LOC: ER 09:31
DX: J45.901 Unspecified asthma with (acute) exacerbation (principal); Z88.6 Allergy status to analgesic agent; F17.210 Nicotine dependence, cigarettes, uncomplicated
CPT/HCPCS: 71046; 99283

== ENCOUNTER 2019-12-23 18:43 | Emergency (ER) | payer SELFPAY, OTHER ==
[2019-12-23] MEDS ORDERED: ALBUTEROL INHALER 60 PUFF/8 GM IH ONE (19:36)
[2019-12-23] MEDS ORDERED: NA CHLORIDE 0.9% 1,000 ML ONE (19:36)
--- NOTE | 2019-12-23 19:59 | RAD REPORT ---
EXAM DESCRIPTION: RAD - Chest Single View - 12/23/2019 7:36 pm CLINICAL HISTORY: COUGH COMPARISON: November 2018 TECHNIQUE: AP portable chest image was obtained 12/23/2019 7:36 pm . FINDINGS: No focal consolidation or mass. Prominent interstitial markings are similar to comparison. No abnormal peribronchial thickening seen. Heart and vasculature are normal. No measurable pleural e ffusion and no pneumothorax. No acute bony abnormality seen. No acute aortic findings suspected. IMPRESSION: No acute cardiopulmonary process. Interstitial markings are mildly prominent but not clearly different from comparison.
[2019-12-23] MEDS ORDERED: METHYLPREDNISOLONE 125 MG INJ ONE (20:00)
[2019-12-23 20:18] LABS: Absolute Lymphocytes (CBC) 4.4 K/uL (0.7-4.9); Basophils % 1.2 % (0-1.3); Hematocrit 37.7 % (36.0-45.0); Lymphocytes % 50.3 % (15.3-44.8); MPV 9.9 fL (7.6-11.3)
[2019-12-23 20:24] LABS: Albumin 4.2 g/dL (3.4-5.0); Bilirubin Direct 0.1 mg/dL (0-0.2); Bilirubin Total 0.3 mg/dL (0.2-1.0); Potassium 3.5 mmol/L (3.5-5.1); Protein, Total 7.6 g/dL (6.4-8.2)
[2019-12-23 20:50] LABS: Blood Morphology Comment NOT SEEN (NOT SEEN); Platelet Estimate ADEQ
[2019-12-23] MEDS ORDERED: ACETAMINOPHEN 500 MG TAB ONE (21:16)
[2019-12-23 21:42] LABS: Urine Culture Reflex Order NOT NEEDED
[2019-12-23 21:43] LABS: Urine Bacteria <20 /HPF (<20); Urine RBC <5 /HPF (NONE SEEN)
--- NOTE | 2019-12-23 21:43 | ER ---
Nurse's Notes [facility] Name: Mira Trinidad Age: 34 yrs Sex: Female : 1985 Arrival Date: 12/23/2019 Time: 18:47 Bed 6 Private MD: Diagnosis: Asthma;Bronchitis;Sinusitis;Urinary tract infection, site not specified Presentation: 12/22 18:48 Chief complaint: Patient states: "since last Sunday I got some congestion with this jd3 cough and now it has settled in my lungs as well as having diarrhea.". Coronavirus screen: cough unrelated to allergies, diarrhea, difficulty breathing, fatigue, Client presents with at least one sign or symptom that may indicate coronavirus-19. Standard/surgical mask placed on the client. Provider contacted for isolation considerations. Ebola Screen: Patient negative for fever greater than or equal to 101.5 degrees Fahrenheit, and additional compatible Ebola Virus Disease symptoms. Initial Sepsis Screen: Does the patient meet any 2 criteria? No. Patient's initial sepsis screen is negative. Does the patient have a suspected source of infection? No. Patient's initial sepsis screen is negative. Risk Assessment: Do you want to hurt yourself or someone else? Patient reports no desire to harm self or others. Onset of symptoms was December 17, 2019. 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 - Social history:: Smoking status: Patient reports the use of cigarette tobacco products, smokes one-half pack cigarettes per day. Screenin:43 Abuse screen: Denies threats or abuse. Nutritional screening: No deficits noted. ea Tuberculosis screening: No symptoms or risk factors identified. Fall Risk IV access (20 points). Assessment: 19:44 General: Appears uncomfortable, Behavior is calm, cooperative, appropriate for age. ea Pain: Complains of pain in right frontal sinus. Cardiovascular: Patient's skin is warm and dry. Respiratory: Airway is patent Respiratory effort is even, labored, Respiratory pattern is regular, symmetrical, Breath sounds with wheezes bilaterally. Derm: Skin is pink, warm \\T\\ dry. Vital Signs: 18:51 BP 133 / 96; Pulse 81; Resp 19 S; Temp 98.4(O); Pulse Ox 97% on R/A; Weight 65.77 kg; jd3 Height 5 ft. 6 in. (167.64 cm); Pain 4/10; 21:50 BP 130 / 86; Pulse 78; Resp 18; Pulse Ox 98% on R/A; ea 18:51 Body Mass Index 23.40 (65.77 kg, 167.64 cm) jd3 ED Course: 18:47 Patient arrived in ED. mr 18:50 Triage completed. jd3 18:51 Arm band placed on. jd3 19:00 Eder Carrero MD is Attending Physician. [facility] 19:12 Renu Viera RN is Primary Nurse. ea 19:37 XRAY CXR (1 view) In Process Unspecified. EDMS 19:43 Inserted saline lock: 20 gauge in right antecubital area, using aseptic technique. ea Blood collected. 19:44 Patient has correct armband on for positive identification. Placed in gown. Bed in low ea position. Call light in reach. Side rails up X 1. 21:12 Urine Microscopic Only Sent. ds4 21:53 No provider procedures requiring assistance completed. IV discontinued, intact, ea bleeding controlled, No redness/swelling at site. Pressure dressing applied. Administered Medications: 19:38 Drug: Albuterol HFA Inhaler 2 puffs Route: Inhalation; ea 20:55 Follow up: Response: No adverse reaction; Marked relief of symptoms ea 19:43 Drug: NS 0.9% 1000 ml Route: IV; Rate: 1000 ml; Site: right antecubital; ea 20:55 Follow up: Response: No adverse reaction; IV Status: Completed infusion; IV Intake: ea 1000ml 19:49 Drug: SOLU-Medrol 125 mg Route: IVP; Site: right antecubital; ea 20:55 Follow up: Response: No adverse reaction ea 21:23 Drug: Tylenol 1000 mg Route: PO; ea 21:52 Follow up: Response: No adverse reaction ea 21:32 Drug: LevaQUIN 500 mg Route: PO; ea 21:53 Follow up: Response: No adverse reaction ea Intake: 20:55 IV: 1000ml; Total: 1000ml. ea Outcome: 21:42 Discharge ordered by MD. solares 21:53 Discharged to home ambulatory. ea 21:53 Condition: stable 21:53 Discharge instructions given to patient, Instructed on discharge instructions, follow up and referral plans. medication usage, Demonstrated understanding of instructions, follow-up care, medications, Prescriptions given X 4. 21:54 Patient left the ED. ea Signatures: Dispatcher [employer] EDAK Deanne Guaman Donovan ds4 Renu Viera RN Flako Brown ea, RN RN Eder Serrano MD MD mh7
--- NOTE | 2019-12-23 21:43 | EDPHYS ---
Physician Documentation [facility] Name: Mira Trinidad Age: 34 yrs Sex: Female : 1985 Arrival Date: 12/23/2019 Time: 18:47 Bed 6 Private MD: ED Physician Eder Carrero HPI: 12/22 19:19 This 34 yrs old Female presents to ER via Ambulatory with complaints of mh7 Congestion, Cough, Headache, Diarrhea. 19:19 The patient or guardian reports cough, that is intermittent, described as moderate, mh7 with productive sputum, that is yellow. Onset: The symptoms/episode began/occurred 1 week(s) ago. Severity of symptoms: At their worst the symptoms were moderate, 2 day(s) ago, in the emergency department the symptoms have improved, moderately. Modifying factors: The symptoms are alleviated by inhaler, albuterol, the symptoms are aggravated by nothing. Associated signs and symptoms: Pertinent positives: diarrhea, rhinorrhea, Headache, Pertinent negatives: chest pain, ear ache, fever, nausea, sore throat, vomiting. 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 - Social history:: Smoking status: Patient reports the use of cigarette tobacco products, smokes one-half pack cigarettes per day. ROS: 19:19 Constitutional: Negative for fever, chills, and weight loss, Eyes: Negative for injury, mh7 pain, redness, and discharge, Neck: Negative for injury, pain, and swelling, Cardiovascular: Negative for chest pain, palpitations, and edema, Back: Negative for injury and pain, : Negative for injury, bleeding, discharge, and swelling, MS/Extremity: Negative for injury and deformity, Skin: Negative for injury, rash, and discoloration, Neuro: Negative for headache, weakness, numbness, tingling, and seizure, Psych: Negative for depression, anxiety, suicide ideation, homicidal ideation, and hallucinations, Allergy/Immunology: Negative for hives, rash, and allergies, Endocrine: Negative for neck swelling, polydipsia, polyuria, polyphagia, and marked weight changes, Hematologic/Lymphatic: Negative for swollen nodes, abnormal bleeding, and unusual bruising. Exam: 19:19 Constitutional: This is a well developed, well nourished patient who is awake, alert, mh7 and in no acute distress. 19:19 Eyes: Pupils equal round and reactive to light, extra-ocular motions intact. Lids and lashes normal. Conjunctiva and sclera are non-icteric and not injected. Cornea within normal limits. Periorbital areas with no swelling, redness, or edema. ENT: Nares patent. No nasal discharge, no septal abnormalities noted. Tympanic membranes are normal and external auditory canals are clear. Oropharynx with no redness, swelling, or masses, exudates, or evidence of obstruction, uvula midline. Mucous membranes moist. Neck: Trachea midline, no thyromegaly or masses palpated, and no cervical lymphadenopathy. Supple, full range of motion without nuchal rigidity, or vertebral point tenderness. No Meningismus. Chest/axilla: Normal chest wall appearance and motion. Nontender with no deformity. No lesions are appreciated. Cardiovascular: Regular rate and rhythm with a normal S1 and S2. No gallops, murmurs, or rubs. Normal PMI, no JVD. No pulse deficits. 19:19 Abdomen/GI: Soft, non-tender, with normal bowel sounds. No distension or tympany. No guarding or rebound. No evidence of tenderness throughout. Back: No spinal tenderness. No costovertebral tenderness. Full range of motion. Skin: Warm, dry with normal turgor. Normal color with no rashes, no lesions, and no evidence of cellulitis. MS/ Extremity: Pulses equal, no cyanosis. Neurovascular intact. Full, normal range of motion. Neuro: Awake and alert, GCS 15, oriented to person, place, time, and situation. Cranial nerves II-XII grossly intact. Motor strength 5/5 in all extremities. Sensory grossly intact. Cerebellar exam normal. Normal gait. Psych: Awake, alert, with orientation to person, place and time. Behavior, mood, and affect are within normal limits. 19:19 Head/face: Sinus tenderness, that is mild, is located over the right frontal sinus, left frontal sinus, right maxillary sinus and left maxillary sinus. 19:19 Respiratory: the patient does not display signs of respiratory distress, Respirations: prolonged exhalation, that is mild, Breath sounds: wheezing: expiratory that is moderate, is heard diffusely, Respiratory rate: 19 Vital Signs: 18:51 BP 133 / 96; Pulse 81; Resp 19 S; Temp 98.4(O); Pulse Ox 97% on R/A; Weight 65.77 kg; jd3 Height 5 ft. 6 in. (167.64 cm); Pain 4/10; 21:50 BP 130 / 86; Pulse 78; Resp 18; Pulse Ox 98% on R/A; ea 18:51 Body Mass Index 23.40 (65.77 kg, 167.64 cm) jd3 MDM: 19:18 Patient medically screened. [facility] 21:37 Differential Diagnosis: Bronchitis Influenza Upper Respiratory Infection Sinusitis 7 Pharyngitis Allergic Rhinitis Asthma Exacerbation Viral Syndrome Pneumonia. 21:39 Data reviewed: vital signs, nurses notes, old medical records, lab test result(s), CBC, [facility] electrolytes, urinalysis, radiologic studies, plain films. Data interpreted: Pulse oximetry: on room air is 97 %. Interpretation: normal. Counseling: I had a detailed discussion with the patient and/or guardian regarding: the historical points, exam findings, and any diagnostic results supporting the discharge/admit diagnosis, the presence of at least one elevated blood pressure reading (>120/80) during this emergency department visit, lab results, radiology results, the need for outpatient follow up, to return to the emergency department if symptoms worsen or persist or if there are any questions or concerns that arise at home. Response to treatment: the patient's symptoms have resolved after treatment, the patient's blood pressure is in an acceptable range, mental status has returned to baseline, the patient no longer shows bradycardia, the patient is not short of breath, the patient is not tachycardic, the patient's pain is gone, the patient's temperature has normalized. 12/22 19:15 Order name: CBC with Diff ea 12/22 19:15 Order name: Basic Metabolic Panel; Complete Time: 20:43 ea 12/22 19:15 Order name: LFT's; Complete Time: 20:43 ea 12/22 19:15 Order name: Influenza Screen (a \T\ B) ea 12/22 19:15 Order name: Strep ea 12/22 19:15 Order name: Urine Microscopic Only ea 12/22 19:15 Order name: Lipase; Complete Time: 20:43 ea 12/22 19:16 Order name: CBC with Automated Diff; Complete Time: 21:03 EDTN 12/22 20:24 Order name: Manual Differential; Complete Time: 21:03 [facility] 12/22 20:51 Order name: Slides for Pathologist Review [facility] 12/22 21:11 Order name: Urine --Ancillary (enter results) ds4 12/22 21:12 Order name: Urine Dipstick--Ancillary (enter results) 4 12/22 21:20 Order name: Urine Culture 7 12/22 21:41 Order name: Throat Culture [facility] 12/22 19:15 Order name: Urine Test (obtain specimen); Complete Time: 21:10 ea 12/22 19:15 Order name: Urine Dipstick-Ancillary (obtain specimen); Complete Time: 21:10 12/22 19:15 Order name: XRAY CXR (1 view); Complete Time: 20:02 ea Administered Medications: 19:38 Drug: Albuterol HFA Inhaler 2 puffs Route: Inhalation; ea 20:55 Follow up: Response: No adverse reaction; Marked relief of symptoms ea 19:43 Drug: NS 0.9% 1000 ml Route: IV; Rate: 1000 ml; Site: right antecubital; ea 20:55 Follow up: Response: No adverse reaction; IV Status: Completed infusion; IV Intake: ea 1000ml 19:49 Drug: SOLU-Medrol 125 mg Route: IVP; Site: right antecubital; ea 20:55 Follow up: Response: No adverse reaction ea 21:23 Drug: Tylenol 1000 mg Route: PO; ea 21:52 Follow up: Response: No adverse reaction ea 21:32 Drug: LevaQUIN 500 mg Route: PO; ea 21:53 Follow up: Response: No adverse reaction ea Disposition: 12/23/19 21:42 Discharged to Home. Impression: Asthma, Bronchitis, Sinusitis, Urinary tract infection, site not specified. - Condition is Stable. - Discharge Instructions: Sinusitis, Adult, [id number], Urinary Tract Infection, Adult, [id number], Acute Bronchitis, [id number]-um-[id number], Asthma, Adult, [id number]. - Prescriptions for Levaquin 500 mg Oral Tablet - take 1 tablet by ORAL route once daily for 7 days; 7 tablet. Prednisone 20 mg Oral Tablet - take 3 tablet by ORAL route once daily for 5 days; 15 tablet. Tessalon Perles 100 mg Oral Capsule - take 1 capsule by ORAL route every 8 hours As needed; 20 capsule. Albuterol Sulfate 90 mcg/actuation - inhale 1-2 puff by INHALATION route every 4-6 hours; 1 Inhaler. - Medication Reconciliation Form, Thank You Letter, Antibiotic Education, Prescription Opioid Use form. - Work release form (12/23/19 21:56). jd3 - Follow up: Private Physician; When: 1 - 2 days; Reason: Worsening of condition, Recheck today's complaints, Continuance of care, Re-evaluation by your physician. - Problem is an acute exacerbation. - Symptoms have improved. Signatures: Dispatcher [employer] EDRenu Iqbal RN RN ea Davies, Jonathon, RN RN jd3 Holmes, Maurice, MD MD mh7 Corrections: (The following items were deleted from the chart) 21:54 21:42 12/23/2019 21:42 Discharged to Home. Impression: Asthma; Bronchitis; Sinusitis; ea Urinary tract infection, site not specified. Condition is Stable. Forms are Medication Reconciliation Form, Thank You Letter, Antibiotic Education, Prescription Opioid Use. Follow up: Private Physician; When: 1 - 2 days; Reason: Worsening of condition, Recheck today's complaints, Continuance of care, Re-evaluation by your physician. Problem is an acute exacerbation. Symptoms have improved. mh7
[2019-12-23 21:44] LABS: Urine Blood TRACE (NEG); Urine Glucose NEGATIVE (NEG); Urine Protein NEGATIVE (NEG); Urine pH 5.5 (5.0-7.0)
[2019-12-23] MEDS ORDERED: levoFLOXacin 500 MG TAB ONE (21:44)
[2019-12-23 22:12] VITALS: TEMP 98.4
[2019-12-23 22:28] VITALS: BP 130/86; O2SAT 98
== END 2019-12-23 21:54 | disposition home or self-care (01) ==
LOC: ER 18:43
DX: J45.909 Unspecified asthma, uncomplicated (principal); J32.9 Chronic sinusitis, unspecified; N39.0 Urinary tract infection, site not specified; F17.210 Nicotine dependence, cigarettes, uncomplicated; Z88.5 Allergy status to narcotic agent
CPT/HCPCS: 36415; 71045; 80048; 80076; 81003; 81015; 81025; 83690; 85025; 87070; 87081; 87086; 87088; 87804; 96361; 96374; 99284; J2930; J7030

== ENCOUNTER 2020-02-13 09:55 | Emergency (ER) | payer SELFPAY ==
--- NOTE | 2020-02-13 10:29 | ER ---
Nurse's Notes [facility] Name: Mira Trinidad Age: 34 yrs Sex: Female : 1985 Arrival Date: 02/13/2020 Time: 09:57 Bed 6 Private MD: Diagnosis: Acute bronchitis, unspecified;Otitis media, unspecified Presentation: 02/12 10:18 Chief complaint: Patient states: right ear pain X 2 weeks and sinus pain. iw 10:18 Method Of Arrival: Ambulatory iw 10:19 Ebola Screen: Patient negative for fever greater than or equal to 101.5 degrees iw Fahrenheit, and additional compatible Ebola Virus Disease symptoms Patient denies exposure to infectious person. Patient denies travel to an Ebola-affected area in the 21 days before illness onset. No symptoms or risks identified at this time. Initial Sepsis Screen: Does the patient meet any 2 criteria? No. Patient's initial sepsis screen is negative. Does the patient have a suspected source of infection? No. Patient's initial sepsis screen is negative. Risk Assessment: Do you want to hurt yourself or someone else? Patient reports no desire to harm self or others. Onset of symptoms was January 30, 2020. 10:19 Acuity: MARK ANTHONY 4 iw 10:20 Coronavirus screen: congestion. iw Historical: - Allergies: 10:22 No Known Allergies; iw - PMHx: 10:21 Asthma; iw - PSHx: 10:22 Hysterectomy; Cholecystectomy; iw - Immunization history:: Adult Immunizations not up to date. - Social history:: Smoking status: Patient reports the use of cigarette tobacco products, 3 cigarettes per day . Screenin:25 Abuse screen: Denies threats or abuse. Denies injuries from another. Nutritional ph screening: No deficits noted. Tuberculosis screening: No symptoms or risk factors identified. Fall Risk None identified. Assessment: 10:52 General: Appears in no apparent distress. comfortable, slender, well groomed, Behavior ph is calm, cooperative, appropriate for age, Reports fever for > 3 days. Pain: Complains of pain in left ear and right ear. Neuro: Level of Consciousness is awake, alert, obeys commands, Oriented to person, place, time, situation. Cardiovascular: Capillary refill < 3 seconds in bilateral fingers Patient's skin is warm and dry. Respiratory: Airway is patent Respiratory effort is even, unlabored, Denies cough, shortness of breath. EENT: Reports nasal congestion pain in right ear, nose and left ear. Derm: Skin is intact, is healthy with good turgor, Skin is pink, warm \T\ dry. Musculoskeletal: Circulation, motion, and sensation intact. Range of motion: intact in all extremities. 11:16 Reassessment: Patient appears in no apparent distress at this time. Patient and/or ph family updated on plan of care and expected duration. Pain level reassessed. Patient is alert, oriented x 3, equal unlabored respirations, skin warm/dry/pink. Pt d/c home. Vital Signs: 10:19 BP 146 / 98; Pulse 88; Resp 16; Temp 97.6; Pulse Ox 100% on R/A; Weight 68.04 kg; iw Height 5 ft. 6 in. (167.64 cm); Pain 7/10; 11:16 BP 138 / 90; Pulse 86; Resp 18; Temp 98.0; Pulse Ox 99% on R/A; ph 10:19 Body Mass Index 24.21 (68.04 kg, 167.64 cm) iw ED Course: 09:57 Patient arrived in ED. ds1 10:05 Shireen Hammonds FNP-C [facility]. snw 10:05 Dioni Thrasher MD is Attending Physician. snw 10:20 Triage completed. iw 10:22 Arm band placed on. iw 10:23 Danielle Sebastian, RN is Primary Nurse. ph 10:25 Patient has correct armband on for positive identification. Bed in low position. Call ph light in reach. Side rails up X 1. Pulse ox on. NIBP on. Door closed. Noise minimized. 10:53 No provider procedures requiring assistance completed. COVID swab sent to lab. ph 11:17 Patient did not have IV access during this emergency room visit. ph Administered Medications: 10:49 Drug: Rocephin (cefTRIAXone) 1 grams Route: IM; Site: right vastus lateralis; ph 11:17 Follow up: Response: No adverse reaction ph 10:49 Drug: Zithromax 500 mg Route: PO; ph 11:17 Follow up: Response: No adverse reaction ph 10:49 Drug: Decadron 8 mg Route: PO; ph 11:18 Follow up: Response: No adverse reaction ph Outcome: 10:29 Discharge ordered by MD. shepherd 11:16 Discharged to home ambulatory. ph 11:16 Condition: good 11:16 Discharge instructions given to patient, Instructed on discharge instructions, follow up and referral plans. medication usage, Demonstrated understanding of instructions, follow-up care, medications, Prescriptions given X 4. 11:18 Patient left the ED. ph Addendum: 02/16/2020 11:56 Addendum: COVID-19 Result: Negative result given to RN to notify pt. Notified pt of i w negative COVID 19 swab results. Pt advised that even with a negative test result they should remain in isolation until symptom free for 3 days without medication. Pt also advised to return to the ED for worsening symptoms. Signatures: Shireen Hammonds, BUTTER MAKER-C BUTTER MAKER-Valoriew Ely Salinas ds1 Katherine Eid, LUIS ANTONIO RN Danielle Sebastian RN RN
--- NOTE | 2020-02-13 10:29 | EDPHYS ---
Physician Documentation [facility] Name: Mira Trinidad Age: 34 yrs Sex: Female : 1985 Arrival Date: 02/13/2020 Time: 09:57 Bed 6 Private MD: JOSÉ MIGUEL Physician Dioni Thrasher HPI: 02/12 10:39 This 34 yrs old Female presents to ER via Ambulatory with complaints of Ear snw Pain, Sinus Pain. 10:39 The patient presents with pain, that is acute, tenderness. The complaints affect the snw right ear, nose and left ear. Onset: The symptoms/episode began/occurred 3 week(s) ago, and became worse. Associated signs and symptoms: Pertinent positives: sinus trouble. Severity of symptoms: At their worst the symptoms were moderate severe. It is unknown whether or not the patient has had similar symptoms in the past. The patient has not recently seen a physician. low grade fever "the other day". Historical: - Allergies: 10:22 No Known Allergies; iw - PMHx: 10:21 Asthma; iw - PSHx: 10:22 Hysterectomy; Cholecystectomy; iw - Immunization history:: Adult Immunizations not up to date. - Social history:: Smoking status: Patient reports the use of cigarette tobacco products, 3 cigarettes per day . ROS: 10:39 Constitutional: Negative for fever, chills, and weight loss, Eyes: Negative for injury, snw pain, redness, and discharge. 10:39 Neck: Negative for injury, pain, and swelling, Cardiovascular: Negative for chest pain, palpitations, and edema, Respiratory: Negative for shortness of breath, cough, wheezing, and pleuritic chest pain, Abdomen/GI: Negative for abdominal pain, nausea, vomiting, diarrhea, and constipation, Back: Negative for injury and pain, : Negative for injury, bleeding, discharge, and swelling, MS/Extremity: Negative for injury and deformity, Skin: Negative for injury, rash, and discoloration, Neuro: Negative for headache, weakness, numbness, tingling, and seizure, Psych: Negative for depression, anxiety, suicide ideation, homicidal ideation, and hallucinations. 10:39 ENT: Positive for ear pain, sinus pain. Exam: 10:39 Constitutional: This is a well developed, well nourished patient who is awake, alert, snw and in no acute distress. Head/Face: Normocephalic, atraumatic. Eyes: Pupils equal round and reactive to light, extra-ocular motions intact. Lids and lashes normal. Conjunctiva and sclera are non-icteric and not injected. Cornea within normal limits. Periorbital areas with no swelling, redness, or edema. 10:39 Neck: Trachea midline, no thyromegaly or masses palpated, and no cervical lymphadenopathy. Supple, full range of motion without nuchal rigidity, or vertebral point tenderness. No Meningismus. Chest/axilla: Normal chest wall appearance and motion. Nontender with no deformity. No lesions are appreciated. Cardiovascular: Regular rate and rhythm with a normal S1 and S2. No gallops, murmurs, or rubs. Normal PMI, no JVD. No pulse deficits. 10:39 Abdomen/GI: Soft, non-tender, with normal bowel sounds. No distension or tympany. No guarding or rebound. No evidence of tenderness throughout. Back: No spinal tenderness. No costovertebral tenderness. Full range of motion. Skin: Warm, dry with normal turgor. Normal color with no rashes, no lesions, and no evidence of cellulitis. MS/ Extremity: Pulses equal, no cyanosis. Neurovascular intact. Full, normal range of motion. Neuro: Awake and alert, GCS 15, oriented to person, place, time, and situation. Cranial nerves II-XII grossly intact. Motor strength 5/5 in all extremities. Sensory grossly intact. Cerebellar exam normal. Normal gait. Psych: Awake, alert, with orientation to person, place and time. Behavior, mood, and affect are within normal limits. 10:39 ENT: External ear(s): are unremarkable, Ear canal(s): are normal, TM's: erythema, Nose: is normal, Mouth: is normal, Posterior pharynx: erythema, that is moderate, Voice: is normal. 10:39 Respiratory: the patient does not display signs of respiratory distress, Respirations: normal, Breath sounds: bronchial sounds, that are moderate, are heard diffusely, + upper airway congestion. Vital Signs: 10:19 BP 146 / 98; Pulse 88; Resp 16; Temp 97.6; Pulse Ox 100% on R/A; Weight 68.04 kg; iw Height 5 ft. 6 in. (167.64 cm); Pain 7/10; 11:16 BP 138 / 90; Pulse 86; Resp 18; Temp 98.0; Pulse Ox 99% on R/A; ph 10:19 Body Mass Index 24.21 (68.04 kg, 167.64 cm) iw MDM: 10:11 Patient medically screened. [facility] 10:38 Data reviewed: vital signs, nurses notes. Data interpreted: Pulse oximetry: on room air snw is 100 %. Interpretation: normal. Counseling: I had a detailed discussion with the patient and/or guardian regarding: the historical points, exam findings, and any diagnostic results supporting the discharge/admit diagnosis, the presence of at least one elevated blood pressure reading (>120/80) during this emergency department visit, lab results, the need for outpatient follow up, to return to the emergency department if symptoms worsen or persist or if there are any questions or concerns that arise at home, smoking cessation. Special discussion: Based on the history and exam findings, there is no indication for further emergent testing or inpatient evaluation. I discussed with the patient/guardian the need to see the primary care provider for further evaluation of the symptoms. 02/12 10:19 Order name: COVID-19: send out snw Administered Medications: 10:49 Drug: Rocephin (cefTRIAXone) 1 grams Route: IM; Site: right vastus lateralis; ph 11:17 Follow up: Response: No adverse reaction ph 10:49 Drug: Zithromax 500 mg Route: PO; ph 11:17 Follow up: Response: No adverse reaction ph 10:49 Drug: Decadron 8 mg Route: PO; ph 11:18 Follow up: Response: No adverse reaction ph Disposition: 02/13 08:24 Co-signature as Attending Physician, Dioni Thrasher MD I agree with the assessment and [facility] plan of care. Disposition: 02/13/20 10:29 Discharged to Home. Impression: Acute bronchitis, unspecified, Otitis media, unspecified. - Condition is Stable. - Discharge Instructions: Acute Bronchitis, Adult, Steps to Quit Smoking, Smoking Hazards, Rehydration, Adult. - Prescriptions for Prednisone 20 mg Oral Tablet - take 2 tablet by ORAL route once daily for 5 days; 10 tablet. Albuterol Sulfate 90 mcg/actuation - inhale 1-2 puff by INHALATION route every 4-6 hours; 1 Inhaler. Pepcid 20 mg Oral Tablet - take 1 tablet by ORAL route once daily; 20 tablet. Zithromax 500 mg Oral Tablet - take 1 tablet by ORAL route once daily for 5 days; 5 tablet. - Work release form, Medication Reconciliation Form, Thank You Letter, Antibiotic Education, Prescription Opioid Use form. - Follow up: Emergency Department; When: As needed; Reason: Worsening of condition. Follow up: Private Physician; When: 2 - 3 days; Reason: Recheck today's complaints, Continuance of care, Re-evaluation by your physician. Signatures: Dispatcher [employer] EDMS Dioni Thrasher MD MD cha Waters, Shelly, [employer] MARKER-C [employer]-Csnw Katherine Eid, RN RN iw Danielle Sebastian RN RN ph Corrections: (The following items were deleted from the chart) 02/12 11:18 10:29 02/13/2020 10:29 Discharged to Home. Impression: Acute bronchitis, unspecified; ph Otitis media, unspecified. Condition is Stable. Forms are Medication Reconciliation Form, Thank You Letter, Antibiotic Education, Prescription Opioid Use. Follow up: Emergency Department; When: As needed; Reason: Worsening of condition. Follow up: Private Physician; When: 2 - 3 days; Reason: Recheck today's complaints, Continuance of care, Re-evaluation by your physician. snw
[2020-02-13] MEDS ORDERED: dexAMETHasone 4 MG TAB ONE (10:47)
[2020-02-13] MEDS ORDERED: AZITHROMYCIN 250 MG TAB ONE (10:47)
[2020-02-13] MEDS ORDERED: CEFTRIAXONE 1000 MG/VIAL ONE (10:47)
[2020-02-13] MEDS ORDERED: LIDOCAINE 1% MPF 2 ML AMPULE ONE (10:47)
[2020-02-18 16:54] VITALS: BP 138/90; TEMP 98; O2SAT 99
== END 2020-02-13 11:18 | disposition home or self-care (01) ==
LOC: ER 09:55
DX: H66.93 Otitis media, unspecified, bilateral (principal); J20.9 Acute bronchitis, unspecified; Z20.828 Contact with and (suspected) exposure to other viral communicable diseases; F17.210 Nicotine dependence, cigarettes, uncomplicated
CPT/HCPCS: 96372; 99283; J2001; J8540; U0002

== ENCOUNTER 2020-03-31 08:45 | Emergency (ER) | payer SELFPAY ==
[2020-03-31] MEDS ORDERED: KETOROLAC 30 MG/ML INJ ONE (09:29)
[2020-03-31] MEDS ORDERED: DIAZEPAM 5 MG TABLET ONE (09:29)
--- NOTE | 2020-03-31 10:52 | RAD REPORT ---
EXAM DESCRIPTION: RAD - Lumbar Spine 3 Views - 03/31/2020 10:05 am CLINICAL HISTORY: Back pain FINDINGS: The alignment of the lumbar spine is satisfactory. No fracture or dislocation is seen. Mild disc space narrowing L5-S1
--- NOTE | 2020-03-31 10:53 | RAD REPORT ---
EXAM DESCRIPTION: RAD - Hip Right 2 View - 03/31/2020 10:08 am CLINICAL HISTORY: Right hip pain FINDINGS: No fracture or dislocation is seen. Mild joint space narrowing and mild subchondral sclerosis involves the right hip. .
[2020-03-31] MEDS ORDERED: dexAMETHasone 10 MG/ML VIAL ONE (11:12)
--- NOTE | 2020-03-31 11:28 | EDPHYS ---
Physician Documentation [facility] Name: Mira Trinidad Age: 34 yrs Sex: Female : 1985 Arrival Date: 03/31/2020 Time: 08:46 Bed 19 Private MD: ED Physician Miah Bolanos HPI: 03/31 09:13 This 34 yrs old Female presents to ER via Ambulatory with complaints of Back jmm Pain. 09:13 The patient presents with pain that is acute. Onset: The symptoms/episode jmm began/occurred gradually. The pain radiates to the right leg. Associated signs and symptoms: Pertinent negatives: abdominal pain, dysuria, fever. This is a 34 year old female with a history of asthma that presents to the ED with complaints of lower back pain which radiates down the right thigh. Denies injury but states she performs strenous activity at work. Denies dysuria, fever, incontinence. Historical: - Allergies: 09:08 Haloperidol; ss 09:08 Morphine; ss - PMHx: 09:08 Asthma; ss - PSHx: 09:08 Hysterectomy; Cholecystectomy; ss - Immunization history:: Adult Immunizations up to date. - Social history:: Smoking status: Patient reports the use of cigarette tobacco products, < 1/2 ppd. ROS: 09:13 Constitutional: Negative for fever, chills, and weight loss, Cardiovascular: Negative jmm for chest pain, palpitations, and edema, Respiratory: Negative for shortness of breath, cough, wheezing, and pleuritic chest pain. 09:13 Back: Positive for pain with movement. 09:13 MS/extremity: Positive for pain. 09:13 All other systems are negative. Exam: 09:13 Constitutional: This is a well developed, well nourished patient who is awake, alert, jmm and in no acute distress. Head/Face: atraumatic. Eyes: EOMI, no conjunctival erythema appreciated ENT: Moist Mucus Membranes Neck: Trachea midline, Supple Chest/axilla: Normal chest wall appearance and motion. Cardiovascular: Regular rate and rhythm. No edema appreciated Respiratory: Normal respirations, no respiratory distress appreciated Abdomen/GI: Non distended, soft Back: Normal ROM Skin: General appearance color normal 09:13 Musculoskeletal/extremity: ROM: intact in all extremities. 09:13 Musculoskeletal/extremity: right proximal lateral femur pain on palpation, compartments are soft, NVI. 09:13 Skin: Appearance: Color: normal in color. 09:13 Neuro: Orientation: is normal, Mentation: is normal, Memory: is normal. 09:13 Psych: Behavior/mood is pleasant, cooperative. Vital Signs: 09:10 BP 134 / 88; Pulse 88; Resp 18; Temp 98.4; Pulse Ox 99% on R/A; Weight 67.13 kg; Height em 5 ft. 6 in. (167.64 cm); Pain 9/10; 10:46 BP 143 / 81; Pulse 65; Resp 18; Pulse Ox 98% on R/A; Pain 6/10; em 09:10 Body Mass Index 23.89 (67.13 kg, 167.64 cm) em MDM: 09:11 Patient medically screened. [facility] 11:26 Data reviewed: vital signs, nurses notes. Counseling: I had a detailed discussion with [facility] the patient and/or guardian regarding: the historical points, exam findings, and any diagnostic results supporting the discharge/admit diagnosis, radiology results, the need for outpatient follow up, to return to the emergency department if symptoms worsen or persist or if there are any questions or concerns that arise at home. ED course: Patient is advised of the need to follow up with ortho. I do not suspect cord compression or cauda equina. Patient is otherwise given strict return precautions. Patient understood and agrees with the plan of care. . 03/31 09:12 Order name: Lumbar Spine (3 Views) XRAY; Complete Time: 10:54 [facility] 03/31 09:12 Order name: Hip Right 2 View XRAY; Complete Time: 10:54 [facility] Administered Medications: 09:20 Drug: Ketorolac 30 mg Route: IM; Site: right deltoid; em 10:46 Follow up: Response: No adverse reaction; Marked relief of symptoms; Pain is decreased em 09:20 Drug: Valium 5 mg Route: PO; em 10:46 Follow up: Response: No adverse reaction; Marked relief of symptoms; Pain is decreased em 11:02 Drug: Decadron 10 mg Route: IM; Site: left deltoid; em 11:32 Follow up: Response: No adverse reaction em Disposition: 17:02 Co-signature as Attending Physician, Miah Bolanos MD. rn Disposition: 03/31/20 11:28 Discharged to Home. Impression: Low back pain, Pain in right hip. - Condition is Stable. - Discharge Instructions: Back Pain, Adult, Hip Pain. - Prescriptions for Zanaflex 4 mg Oral Tablet - take 1 tablet by ORAL route every 8 hours As needed; 20 tablet. - Medication Reconciliation Form, Thank You Letter, Antibiotic Education, Prescription Opioid Use, Work release form form. - Follow up: Private Physician; When: 2 - 3 days; Reason: Recheck today's complaints, Continuance of care, Re-evaluation by your physician. Follow up: Fransisco Modi MD; When: 2 - 3 days; Reason: Recheck today's complaints, Continuance of care, Re-evaluation by your physician. Signatures: Dispatcher [employer] Faustino Irwin PA PA jmm Munoz, Edgar, RN RN Miah Pate MD MD rn Smirch, Shelby, RN RN Corrections: (The following items were deleted from the chart) 11:35 11:28 03/31/2020 11:28 Discharged to Home. Impression: Low back pain; Pain in right ss hip. Condition is Stable. Forms are Medication Reconciliation Form, Thank You Letter, Antibiotic Education, Prescription Opioid Use. Follow up: Private Physician; When: 2 - 3 days; Reason: Recheck today's complaints, Continuance of care, Re-evaluation by your physician. Follow up: Fransisco Modi; When: 2 - 3 days; Reason: Recheck today's complaints, Continuance of care, Re-evaluation by your physician. iman
--- NOTE | 2020-03-31 11:28 | ER ---
Nurse's Notes [facility] Name: Mira Trinidad Age: 34 yrs Sex: Female : 1985 Arrival Date: 03/31/2020 Time: 08:46 Bed 19 Private MD: Diagnosis: Low back pain;Pain in right hip Presentation: 03/31 09:03 Chief complaint: Patient states: R low back pain that radiates down R leg. Pt reports ss that she noticed discomfort last night, but became much worse this morning. Coronavirus screen: Client denies travel out of the [place] in the last 14 days. Ebola Screen: Patient denies exposure to infectious person. Patient denies travel to an Ebola-affected area in the 21 days before illness onset. Initial Sepsis Screen: Does the patient meet any 2 criteria? No. Patient's initial sepsis screen is negative. Does the patient have a suspected source of infection? No. Patient's initial sepsis screen is negative. Risk Assessment: Do you want to hurt yourself or someone else? Patient reports no desire to harm self or others. Onset of symptoms was March 30, 2020. 09:03 Method Of Arrival: Ambulatory ss 09:03 Acuity: MARK ANTHONY 4 ss Historical: - Allergies: 09:08 Haloperidol; ss 09:08 Morphine; ss - PMHx: 09:08 Asthma; ss - PSHx: 09:08 Hysterectomy; Cholecystectomy; ss - Immunization history:: Adult Immunizations up to date. - Social history:: Smoking status: Patient reports the use of cigarette tobacco products, < 1/2 ppd. Screenin:11 Abuse screen: Denies threats or abuse. Nutritional screening: No deficits noted. em Tuberculosis screening: No symptoms or risk factors identified. Fall Risk None identified. Assessment: 09:20 General: Appears in no apparent distress. uncomfortable, Behavior is calm, cooperative, em appropriate for age. Pain: Complains of pain in right leg Pain currently is 9 out of 10 on a pain scale. Neuro: Level of Consciousness is awake, alert, obeys commands, Oriented to person, place, time, situation, Appropriate for age. Cardiovascular: Capillary refill < 3 seconds Patient's skin is warm and dry. Respiratory: Airway is patent Respiratory effort is even, unlabored, Respiratory pattern is regular, symmetrical. GI: Abdomen is flat. Derm: Skin is intact, is healthy with good turgor, Skin is pink, warm \T\ dry. Musculoskeletal: Capillary refill < 3 seconds, Range of motion: intact in all extremities. 10:47 Reassessment: Patient appears in no apparent distress at this time. Patient and/or em family updated on plan of care and expected duration. Pain level reassessed. Patient is alert, oriented x 3, equal unlabored respirations, skin warm/dry/pink. reports pain has came down but is still uncomfortable Patient states feeling better. Vital Signs: 09:10 BP 134 / 88; Pulse 88; Resp 18; Temp 98.4; Pulse Ox 99% on R/A; Weight 67.13 kg; Height em 5 ft. 6 in. (167.64 cm); Pain 9/10; 10:46 BP 143 / 81; Pulse 65; Resp 18; Pulse Ox 98% on R/A; Pain 6/10; em 09:10 Body Mass Index 23.89 (67.13 kg, 167.64 cm) em ED Course: 08:46 Patient arrived in ED. ds1 09:01 Faustino Michel PA is PHCP. jmm 09:01 Maih Bolanos MD is Attending Physician. jmm 09:01 Yimi Diamond, LUIS ANTONIO is Primary Nurse. em 09:06 Triage completed. ss 09:08 Arm band placed on right wrist. ss 09:11 Patient has correct armband on for positive identification. Bed in low position. Call em light in reach. Adult w/ patient. 10:01 Lumbar Spine (3 Views) XRAY In Process Unspecified. EDMS 10:02 Hip Right 2 View XRAY In Process Unspecified. EDMS 11:27 Fransisco Modi MD is Referral Physician. jmm 11:33 No provider procedures requiring assistance completed. Patient did not have IV access em during this emergency room visit. Administered Medications: 09:20 Drug: Ketorolac 30 mg Route: IM; Site: right deltoid; em 10:46 Follow up: Response: No adverse reaction; Marked relief of symptoms; Pain is decreased em 09:20 Drug: Valium 5 mg Route: PO; em 10:46 Follow up: Response: No adverse reaction; Marked relief of symptoms; Pain is decreased em 11:02 Drug: Decadron 10 mg Route: IM; Site: left deltoid; em 11:32 Follow up: Response: No adverse reaction em Outcome: 11:28 Discharge ordered by . iman 11:34 Discharged to home ambulatory. ss 11:34 Condition: improved 11:34 Discharge instructions given to patient, Instructed on discharge instructions, follow up and referral plans. medication usage, Demonstrated understanding of instructions, follow-up care, medications, Prescriptions given X 1. 11:35 Patient left the ED. ss Signatures: Dispatcher [employer] Faustino Irwin PA PA jmm Munoz, Edgar, RN RN Ely Richter ds1 Britni Herrera, LUIS ANTONIO RN
[2020-03-31 11:39] VITALS: TEMP 98.4
[2020-03-31 11:41] VITALS: BP 143/81; O2SAT 98
== END 2020-03-31 11:35 | disposition home or self-care (01) ==
LOC: ER 08:45
DX: M54.5 Low back pain (principal); M25.551 Pain in right hip; Z88.6 Allergy status to analgesic agent; F17.210 Nicotine dependence, cigarettes, uncomplicated
CPT/HCPCS: 72100; 96372; 99283; J1100

== ENCOUNTER 2020-05-26 09:54 | Emergency (ER) | payer SELFPAY ==
--- NOTE | 2020-05-26 12:10 | ER ---
Nurse's Notes [facility] Name: Mira Trinidad Age: 34 yrs Sex: Female : 1985 Arrival Date: 05/26/2020 Time: 09:57 Bed 6 Private MD: Diagnosis: Dental caries Presentation: 05/26 10:09 Chief complaint: Patient states: R lower jaw tooth pain for 2 days. Low grade fever at ll1 home. Coronavirus screen: Client denies travel out of the [place] in the last 14 days. At this time, the client does not indicate any symptoms associated with coronavirus-19. Ebola Screen: Patient denies travel to an Ebola-affected area in the 21 days before illness onset. Initial Sepsis Screen: Does the patient meet any 2 criteria? No. Patient's initial sepsis screen is negative. Does the patient have a suspected source of infection? Yes: Other: tooth pain. Risk Assessment: Do you want to hurt yourself or someone else? Patient reports no desire to harm self or others. Onset of symptoms was May 24, 2020. 10:09 Method Of Arrival: Ambulatory ll1 10:09 Acuity: MARK ANTHONY 4 ll1 Historical: - Allergies: 10:08 Haloperidol; ll1 10:08 Morphine; ll1 - PMHx: 10:08 Asthma; ll1 - PSHx: 10:08 Hysterectomy; Cholecystectomy; ll1 - Immunization history:: Flu vaccine is up to date. - Social history:: Smoking status: Patient reports the use of cigarette tobacco products, denies chronic smoking, but will smoke occasionally. Screenin:04 Abuse screen: Denies threats or abuse. Denies injuries from another. Nutritional hb screening: No deficits noted. Tuberculosis screening: No symptoms or risk factors identified. Fall Risk None identified. Assessment: 12:05 General: Appears uncomfortable, Behavior is calm, cooperative. Pain: Complains of pain ss in lower right first molar Pain currently is 8 out of 10 on a pain scale. Quality of pain is described as aching, throbbing, Pain began 2-3 days ago. Is continuous. Neuro: Level of Consciousness is awake, alert, obeys commands, Oriented to person, place, time, situation. Respiratory: Airway is patent Respiratory effort is even, unlabored, Respiratory pattern is regular, symmetrical. GI: Patient currently denies abdominal pain, diarrhea, nausea, vomiting. : No signs and/or symptoms were reported regarding the genitourinary system. EENT: Oral mucosa is moist. Throat is clear. Derm: Skin is intact, is healthy with good turgor, Skin is dry, Skin is pink, warm \T\ dry. normal. Musculoskeletal: Range of motion: Swelling absent. Vital Signs: 10:09 BP 133 / 94; Pulse 83; Resp 17; Temp 98.5; Pulse Ox 100% ; Weight 77.11 kg; Height 5 ll1 ft. 6 in. (167.64 cm); Pain 6/10; 10:09 Body Mass Index 27.44 (77.11 kg, 167.64 cm) ll1 ED Course: 09:57 Patient arrived in ED. mr 10:10 Triage completed. ll1 10:10 Arm band placed on. 1 11:52 Britni Herrera RN is Primary Nurse. ss 11:55 Faustino Michel PA is PHCP. [facility] 11:55 Morteza Campos MD is Attending Physician. [facility] 12:05 Patient has correct armband on for positive identification. Bed in low position. Call ss light in reach. 12:05 Patient maintains SpO2 saturation greater than 95% on room air. 12:15 No provider procedures requiring assistance completed. Patient did not have IV access ss during this emergency room visit. Administered Medications: 12:07 Drug: Clindamycin 300 mg Route: PO; ss 12:07 Follow up: Response: Medication administered at discharge. Outcome: 12:09 Dis[address] ordered by . [facility] 12:15 Discharged to home ambulatory. 12:15 Condition: good 12:15 Discharge instructions given to patient, family, Instructed on discharge instructions, follow up and referral plans. medication usage, Demonstrated understanding of instructions, follow-up care, medications, Prescriptions given X 1. 12:17 Patient left the ED. Signatures: Faustino Michel PA PA jmm GuamanDeanne Britni Herrera, LUIS ANTONIO SALMON Susie Goodson RN RN Shaheen Steele RN RN ll1
--- NOTE | 2020-05-26 12:10 | EDPHYS ---
Physician Documentation [facility] Name: Mira Trinidad Age: 34 yrs Sex: Female : 1985 Arrival Date: 05/26/2020 Time: 09:57 Bed 6 Private MD: ED Physician Morteza Campos HPI: 05/26 12:05 This 34 yrs old Female presents to ER via Ambulatory with complaints of jmm Toothache. 12:05 The patient presents with pain, swelling. Onset: The symptoms/episode began/occurred jmm gradually, 1 day(s) ago. Duration: The symptoms are continuous. Modifying factors: The symptoms are alleviated by nothing, the symptoms are aggravated by nothing. Associated signs and symptoms: Pertinent positives: pain, swelling, Pertinent negatives: fever. The patient has experienced a previous episode. Historical: - Allergies: 10:08 Haloperidol; ll1 10:08 Morphine; ll1 - PMHx: 10:08 Asthma; ll1 - PSHx: 10:08 Hysterectomy; Cholecystectomy; ll1 - Immunization history:: Flu vaccine is up to date. - Social history:: Smoking status: Patient reports the use of cigarette tobacco products, denies chronic smoking, but will smoke occasionally. ROS: 12:05 Constitutional: Negative for fever, chills, and weight loss. jmm 12:05 ENT: Positive for dental pain. 12:05 All other systems are negative. Exam: 12:05 Constitutional: This is a well developed, well nourished patient who is awake, alert, jmm and in no acute distress. 12:05 Chest/axilla: Normal chest wall appearance and motion. Cardiovascular: Regular rate and rhythm. No edema appreciated Respiratory: Normal respirations, no respiratory distress appreciated Abdomen/GI: Non distended, soft Back: Normal ROM Skin: General appearance color normal MS/ Extremity: Moves all extremities, no obvious deformities appreciated, no edema noted to the lower extremities Neuro: Awake and alert, normal gait Psych: Behavior is normal, Mood is normal, Patient is cooperative and pleasant 12:05 Head/face: Noted is swelling, that is mild, of the right jaw. 12:05 ENT: Dental exam: dental caries, that is severe, specifically in the lower right second molar (#31). 12:05 Neck: no submandibular tenderness. Vital Signs: 10:09 BP 133 / 94; Pulse 83; Resp 17; Temp 98.5; Pulse Ox 100% ; Weight 77.11 kg; Height 5 ll1 ft. 6 in. (167.64 cm); Pain 6/; 10:09 Body Mass Index 27.44 (77.11 kg, 167.64 cm) ll1 MDM: 12:05 Patient medically screened. [facility] 12:07 Data reviewed: vital signs, nurses notes. Counseling: I had a detailed discussion with [facility] the patient and/or guardian regarding: the historical points, exam findings, and any diagnostic results supporting the discharge/admit diagnosis, the need for outpatient follow up, to return to the emergency department if symptoms worsen or persist or if there are any questions or concerns that arise at home. ED course: Patient is alert and non toxic in appearance in the ED. I do not suspect sepsis or ludwigs. Patient will be following up with dentist on Sunday. Patient is otherwise given strict return precautions. Patient understood and agrees with the plan of care. . Administered Medications: 12:07 Drug: Clindamycin 300 mg Route: PO; 12:07 Follow up: Response: Medication administered at discharge. Disposition: 17:52 Co-signature as Attending Physician, Morteza Campos MD available for consultation at [facility] all times. Signature for administrative purposes. Did not see or evaluate the patient unless otherwise noted. . Disposition: 05/26/20 12:09 Discharged to Home. Impression: Dental caries. - Condition is Stable. - Discharge Instructions: Dental Pain. - Prescriptions for Clindamycin HCl 300 mg Oral Capsule - take 1 capsule by ORAL route every 6 hours for 10 days; 40 capsule. - Medication Reconciliation Form, Thank You Letter, Antibiotic Education, Prescription Opioid Use, Work release form form. - Follow up: Private Physician; When: 2 - 3 days; Reason: Recheck today's complaints, Continuance of care, Re-evaluation by your physician. - Notes: Use dental putty on affected tooth for pain relieve. Clove oil may help as well. Signatures: Faustino Michel PA PA [facility] Britni Herrera RN RN Morteza Campos MD MD ps1 Shaheen Steele RN RN ll1 Corrections: (The following items were deleted from the chart) 12:17 12:09 05/26/2020 12:09 Discharged to Home. Impression: Dental caries. Condition is ss Stable. Forms are Work release form, Medication Reconciliation Form, Thank You Letter, Antibiotic Education, Prescription Opioid Use. Follow up: Private Physician; When: 2 - 3 days; Reason: Recheck today's complaints, Continuance of care, Re-evaluation by your physician. iman
[2020-05-26 12:22] VITALS: BP 133/94; TEMP 98.5; O2SAT 100
== END 2020-05-26 12:17 | disposition home or self-care (01) ==
LOC: ER 09:54
DX: K02.9 Dental caries, unspecified (principal); J45.909 Unspecified asthma, uncomplicated; F17.210 Nicotine dependence, cigarettes, uncomplicated
CPT/HCPCS: 99284

== ENCOUNTER 2020-08-30 22:31 | Emergency (ER) | payer SELFPAY ==
--- NOTE | 2020-08-30 23:19 | ER ---
Nurse's Notes [facility] Name: Mira Trinidad Age: 34 yrs Sex: Female : 1985 Arrival Date: 08/30/2020 Time: 22:33 Bed 24 Private MD: Diagnosis: Acute sinusitis Presentation: 08/30 22:41 Chief complaint: Patient states: she has been having sinus problems x 2 weeks and has bb been taking OTC medication but symptoms are getting worse now having pain around right eye and ear. Coronavirus screen: congestion, headache, Client presents with at least one sign or symptom that may indicate coronavirus-19. Standard/surgical mask placed on the client. Ebola Screen: No symptoms or risks identified at this time. Initial Sepsis Screen: Does the patient meet any 2 criteria? No. Patient's initial sepsis screen is negative. Does the patient have a suspected source of infection? No. Patient's initial sepsis screen is negative. Risk Assessment: Do you want to hurt yourself or someone else? Patient reports no desire to harm self or others. Onset of symptoms is unknown. 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 - Social history:: Smoking status: Patient reports the use of cigarette tobacco products, smokes one-half pack cigarettes per day, Patient uses alcohol, but reports only rare drinking. Patient/guardian denies using street drugs. Screenin:58 Abuse screen: Denies threats or abuse. Nutritional screening: No deficits noted. vg1 Tuberculosis screening: No symptoms or risk factors identified. Fall Risk No fall in past 12 months (0 pts). No secondary diagnosis (0 pts). No IV (0 pts). Ambulatory Aid- None/Bed Rest/Nurse Assist (0 pts). Gait- Normal/Bed Rest/Wheelchair (0 pts) Mental Status- Oriented to own ability (0 pts). Total Pink Fall Scale indicates No Risk (0-24 pts). Assessment: 22:55 General: Appears in no apparent distress. comfortable, Behavior is calm, cooperative. vg1 Pain: Complains of pain in Right ear and right side of face Pain currently is 8 out of 10 on a pain scale. Quality of pain is described as pressure Noted to be grimacing. Neuro: Level of Consciousness is awake, alert, obeys commands, Oriented to person, place, time, situation, Reports headache. Cardiovascular: Patient's skin is warm and dry. Respiratory: Airway is patent Respiratory effort is even, unlabored, Breath sounds are clear bilaterally. Denies cough, shortness of breath. GI: Reports nausea. : No signs and/or symptoms were reported regarding the genitourinary system. EENT: Ear canal clear on right ear. Derm: Skin is intact, is healthy with good turgor. Musculoskeletal: Circulation, motion, and sensation intact. Vital Signs: 22:41 BP 139 / 92; Pulse 84; Resp 16 S; Temp 98.1(O); Pulse Ox 99% on R/A; Weight 64.41 kg bb (R); Height 5 ft. 6 in. (167.64 cm) (R); Pain 9/10; 22:58 BP 128 / 95; Pulse 77; Resp 16; Pulse Ox 99% on R/A; vg1 23:00 BP 112 / 83; Pulse 70; Resp 14; Pulse Ox 100% on R/A; vg1 22:41 Body Mass Index 22.92 (64.41 kg, 167.64 cm) bb ED Course: 22:33 Patient arrived in ED. bp1 22:43 Triage completed. bb 22:45 Arm band placed on Patient placed in an exam room, on a stretcher, on pulse oximetry. bb Family accompanied patient. 22:51 Nydia Ordoñez, LUIS ANTONIO is Primary Nurse. vg1 22:57 Astrid Dempsey FNP-C is PHCP. kb 22:57 Alberto Bustos MD is Attending Physician. kb 22:58 Allergy band placed. Bed in low position. Call light in reach. Side rails up X 1. Adult vg1 w/ patient. 23:31 No provider procedures requiring assistance completed. Patient did not have IV access vg1 during this emergency room visit. Administered Medications: 23:30 Drug: Augmentin (Amoxicillin-Clavulanate) 875 mg Route: PO; vg1 23:31 Follow up: Response: Medication administered at discharge. vg1 Outcome: 23:18 Discharge ordered by . kb 23:31 Discharged to home ambulatory, with family. vg1 23:31 Condition: stable 23:31 Discharge instructions given to patient, Instructed on discharge instructions, follow up and referral plans. medication usage, Demonstrated understanding of instructions, follow-up care, medications, Prescriptions given X 1. 23:32 Patient left the ED. vg1 Signatures: Astrid Dempsey, BACK ORDER CLERK-David SALINAS-Kasandra Trevizo, RN RN bb Nydia Ordoñez RN RN vg1 Renetta Yoo
--- NOTE | 2020-08-30 23:19 | EDPHYS ---
Physician Documentation [facility] Name: Mira Trinidad Age: 34 yrs Sex: Female : 1985 Arrival Date: 08/30/2020 Time: 22:33 Bed 24 Private MD: ED Physician Alberto Bustos HPI: 08/31 00:19 This 34 yrs old Female presents to ER via Ambulatory with complaints of Ear kb Pain, Sinus Congestion, Headache. 00:19 The patient presents with pain. The complaints affect the right ear. Onset: The kb symptoms/episode began/occurred 10 day(s) ago. Modifying factors: The symptoms are alleviated by nothing, the symptoms are aggravated by nothing. Associated signs and symptoms: Pertinent positives: sinus pain, pressure, congestion. Severity of symptoms: At their worst the symptoms were moderate in the emergency department the symptoms are unchanged. The patient has not experienced similar symptoms in the past. The patient has not recently seen a physician. 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 - Social history:: Smoking status: Patient reports the use of cigarette tobacco products, smokes one-half pack cigarettes per day, Patient uses alcohol, but reports only rare drinking. Patient/guardian denies using street drugs. ROS: 08/31 00:18 Constitutional: Negative for fever, chills, and weight loss. kb ENT: Positive for ear pain, sinus congestion, sinus pain. All other systems are negative. Exam: 00:18 Constitutional: This is a well developed, well nourished patient who is awake, alert, kb and in no acute distress. Head/Face: Normocephalic, atraumatic. Cardiovascular: Regular rate and rhythm with a normal S1 and S2. No gallops, murmurs, or rubs. No pulse deficits. Respiratory: Respirations even and unlabored. No increased work of breathing, no retractions or nasal flaring. Abdomen/GI: Soft, non-tender. No distention Skin: Warm, dry with normal turgor. Normal color. MS/ Extremity: Pulses equal, no cyanosis. Neurovascular intact. Full, normal range of motion. Neuro: Awake and alert, GCS 15, oriented to person, place, time, and situation. Moves all extremities. Normal gait. Psych: Awake, alert, with orientation to person, place and time. Behavior, mood, and affect are within normal limits. 00:18 Head/face: Sinus tenderness, that is marked, is located over the right frontal sinus, right ethmoid sinus and right maxillary sinus. 00:18 ENT: TM's: fluid levels, on the right. Vital Signs: 08/30 22:41 BP 139 / 92; Pulse 84; Resp 16 S; Temp 98.1(O); Pulse Ox 99% on R/A; Weight 64.41 kg bb (R); Height 5 ft. 6 in. (167.64 cm) (R); Pain 9/10; 22:58 BP 128 / 95; Pulse 77; Resp 16; Pulse Ox 99% on R/A; vg1 23:00 BP 112 / 83; Pulse 70; Resp 14; Pulse Ox 100% on R/A; vg1 22:41 Body Mass Index 22.92 (64.41 kg, 167.64 cm) bb MDM: 22:57 Patient medically screened. kb 08/31 00:18 Data reviewed: vital signs, nurses notes. Data interpreted: Pulse oximetry: on room air kb is 100 %. Interpretation: normal. Counseling: I had a detailed discussion with the patient and/or guardian regarding: the historical points, exam findings, and any diagnostic results supporting the discharge/admit diagnosis, the need for outpatient follow up, a family practitioner, to return to the emergency department if symptoms worsen or persist or if there are any questions or concerns that arise at home. Administered Medications: 08/30 23:30 Drug: Augmentin (Amoxicillin-Clavulanate) 875 mg Route: PO; vg1 23:31 Follow up: Response: Medication administered at discharge. vg1 Disposition: 08/31 02:03 Co-signature as Attending Physician, Alberto Bustos MD. pkl Disposition: 08/30/20 23:18 Discharged to Home. Impression: Acute sinusitis. - Condition is Stable. - Discharge Instructions: Sinusitis, Adult, [id number]. - Prescriptions for Augmentin 875- 125 mg Oral Tablet - take 1 tablet by ORAL route every 12 hours for 10 days; 20 tablet. - Medication Reconciliation Form, Thank You Letter, Antibiotic Education, Prescription Opioid Use form. - Follow up: Private Physician; When: 2 - 3 days; Reason: Recheck today's complaints, Continuance of care, Re-evaluation by your physician. Follow up: Emergency Department; When: As needed; Reason: Worsening of condition. Signatures: Astrid Dempsey FNP-C FNP-Ckb Lam, Pin, MD MD pkl Kasandra Garcia, RN RN bb Nydia Ordoñez RN RN vg1 Corrections: (The following items were deleted from the chart) 08/30 23:32 23:18 08/30/2020 23:18 Discharged to Home. Impression: Acute sinusitis. Condition is vg1 Stable. Forms are Medication Reconciliation Form, Thank You Letter, Antibiotic Education, Prescription Opioid Use. Follow up: Private Physician; When: 2 - 3 days; Reason: Recheck today's complaints, Continuance of care, Re-evaluation by your physician. Follow up: Emergency Department; When: As needed; Reason: Worsening of condition. kb
[2020-08-30] MEDS ORDERED: AMOX/K CLAV 875 MG TAB ONE (23:47)
[2020-08-31 00:47] VITALS: TEMP 98.1
[2020-08-31 00:51] VITALS: BP 112/83; O2SAT 100
== END 2020-08-30 23:32 | disposition home or self-care (01) ==
LOC: ER 22:31
DX: J01.90 Acute sinusitis, unspecified (principal); F17.210 Nicotine dependence, cigarettes, uncomplicated; J45.909 Unspecified asthma, uncomplicated; M19.90 Unspecified osteoarthritis, unspecified site
CPT/HCPCS: 99283

== ENCOUNTER 2020-12-16 22:02 | Emergency (ER) | payer SELFPAY ==
[2020-12-16 23:10] LABS: Absolute Lymphocytes (CBC) 3.4 K/uL (0.7-4.9); Basophils % 0.7 % (0-1.3); Hematocrit 37.7 % (36.0-45.0); Lymphocytes % 25.8 % (15.3-44.8); MPV 9.2 fL (7.6-11.3); RBC Red Blood Cell Count 4.39 M/uL (3.86-4.86)
[2020-12-16 23:17] LABS: Protime INR 1.06
[2020-12-16 23:27] LABS: Albumin 4.4 g/dL (3.4-5.0); Bilirubin Direct 0.1 mg/dL (0-0.2); Bilirubin Total 0.5 mg/dL (0.2-1.0); Potassium 3.6 mmol/L (3.5-5.1); Protein, Total 7.8 g/dL (6.4-8.2)
[2020-12-16] MEDS ORDERED: ONDANSETRON 4 MG/2 ML VIAL ONE (23:27)
[2020-12-16] MEDS ORDERED: METHYLPREDNISOLONE 125 MG INJ ONE (23:27)
[2020-12-16] MEDS ORDERED: IPRATROPIUM BROM 0.5MG/2.5ML ONE (23:27)
--- NOTE | 2020-12-17 00:09 | ER ---
Nurse's Notes [facility] Name: Mira Trinidad Age: 35 yrs Sex: Female : 1985 Arrival Date: 12/16/2020 Time: 22:05 Bed 15 Private MD: Diagnosis: Pneumonia, unspecified organism;Mild intermittent asthma with (acute) exacerbation Presentation: 12/16 22:10 Chief complaint: Patient states: SOB x 4 days. df1 22:21 Coronavirus screen: Vaccine status: Patient reports being unvaccinated. Client denies df1 travel out of the [place] in the last 14 days. Client presents with at least one sign or symptom that may indicate coronavirus-19. Standard/surgical mask placed on the client. The client reports previous COVID testing was negative. Date of collection: November 2020. Ebola Screen: Patient negative for fever greater than or equal to 101.5 degrees Fahrenheit, and additional compatible Ebola Virus Disease symptoms Patient denies exposure to infectious person. Patient denies travel to an Ebola-affected area in the 21 days before illness onset. Initial Sepsis Screen: Does the patient meet any 2 criteria? RR > 20 per min. HR > 90 bpm. Yes Does the patient have a suspected source of infection? Yes: Productive cough/pneumonia. Risk Assessment: Do you want to hurt yourself or someone else? Patient reports no desire to harm self or others. Onset of symptoms was December 12, 2020. 22:21 Method Of Arrival: Wheelchair df1 22:21 Acuity: MARK ANTHONY 3 df1 22:23 Note Pt states SOB, wheeze and productive cough increasing in severity since last df1 Sunday. Neb and inhaler at home with no relief. LS exp wheeze bilateral. Wet cough noted in triage. Triage Assessment: 12/17 01:30 General: Appears in no apparent distress. Respiratory: Reports shortness of breath ms4 Onset: The symptoms/episode began/occurred gradually. 01:30 Respiratory: the patient has mild shortness of breath. 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 - Social history:: Smoking status: Patient reports the use of cigarette tobacco products, smokes one-half pack cigarettes per day. Screenin:55 Abuse screen: Denies threats or abuse. Denies injuries from another. Nutritional ms4 screening: No deficits noted. Tuberculosis screening: No symptoms or risk factors identified. Fall Risk None identified. Assessment: 23:54 Reassessment: Patient appears in no apparent distress at this time. No changes from ms4 previously documented assessment. Patient and/or family updated on plan of care and expected duration. Pain level reassessed. Patient is alert, oriented x 3, equal unlabored respirations, skin warm/dry/pink. General: Appears in no apparent distress. Behavior is calm, cooperative, appropriate for age. Pain: Denies pain. Cardiovascular: No deficits noted. Rhythm is regular. Respiratory: Airway is patent Respiratory effort is even, unlabored, Breath sounds with wheezes bilaterally. Vital Signs: 22:21 BP 124 / 100; Pulse 109; Resp 24; Temp 98.0; Pulse Ox 100% on R/A; Pain 8/10; df1 22:25 Weight 65.77 kg; Height 5 ft. 6 in. (167.64 cm); df1 23:55 BP 127 / 108; Pulse 95; Resp 20; Pulse Ox 98% on R/A; Pain 0/10; ms4 08 01:29 BP 127 / 78; Pulse 87; Resp 18; Pulse Ox 98% on R/A; Pain 0/10; ms4 12/16 22:25 Body Mass Index 23.40 (65.77 kg, 167.64 cm) df1 ED Course: 12/16 22:05 Patient arrived in ED. bp1 22:18 Ceasar Nova PA is PHCP. jr8 22:18 Alberto Bustos MD is Attending Physician. jr8 22:23 Triage completed. df1 22:56 XRAY Chest (1 view) Sent. ms4 23:03 Inserted saline lock: 22 gauge in right forearm, using aseptic technique. Blood ds4 collected. 23:49 XRAY Chest (1 view) In Process Unspecified. EDMS 23:55 Patient has correct armband on for positive identification. ms4 12/17 01:29 No provider procedures requiring assistance completed. IV discontinued, intact, ms4 bleeding controlled. 01:30 Arm band placed on. ms4 Administered Medications: 12/16 23:05 Drug: SOLU-Medrol (methylPrednisoLONE) 125 mg Route: IVP; Site: right forearm; bs2 23:05 Drug: Albuterol - atroVENT (ipratropium) (3:1) (2.5 mg - 0.5 mg) 3 ml Route: Nebulizer; bs2 23:05 Drug: Zofran (Ondansetron) 4 mg Route: IVP; Site: right forearm; bs2 23:54 Drug: Tussionex Pennkinetic ER (chlorpheniramine-hydrocodone) Suspension 5 ml Route: PO;ms4 12/17 00:15 Drug: Zithromax (azithromycin) 500 mg Route: IVPB; Infused Over: 1 hrs; Site: right ms4 antecubital; 00:16 Drug: Rocephin (cefTRIAXone) 1 grams Route: IV; Rate: calculated rate; Site: right ms4 antecubital; Outcome: 00:08 Discharge ordered by . farzaneh 01:29 Discharged to home ambulatory. ms4 01:29 Condition: stable 01:29 Discharge instructions given to patient, Instructed on discharge instructions, follow up and referral plans. Demonstrated understanding of instructions, follow-up care, medications, Prescriptions given X 4. 01:30 Patient left the ED. ms4 Signatures: Dispatcher [employer] EDMS Ceasar Nova PA PA jr8 Javan Telles ds4 Renetta Yoo Bridget, RN RN bs2 Salina Coronado RN RN ms4 Kimberly Vega df1 Corrections: (The following items were deleted from the chart) 12/16 23:02 22:57 CORONAVIRUS+MR.KATELYN drawn and sent. ms4 EDMS
--- NOTE | 2020-12-17 00:09 | EDPHYS ---
Physician Documentation [facility] Name: Mira Trinidad Age: 35 yrs Sex: Female : 1985 Arrival Date: 12/16/2020 Time: 22:05 Bed 15 Private MD: ED Physician Alberto Bustos HPI: 12/16 23:08 This 35 yrs old Female presents to ER via Wheelchair with complaints of jr8 Fever, Breathing Difficulty. 23:08 The patient reports fever, not measured (subjective). Onset: The symptoms/episode jr8 began/occurred gradually, 1 week(s) ago. Modifying factors: there are no obvious modifying factors. Associated signs and symptoms: Pertinent positives: cough, diarrhea, nausea, runny nose, sinus congestion, shortness of breath, vomiting. Severity of symptoms: At their worst the symptoms were moderate in the emergency department the symptoms are unchanged. The patient has not experienced similar symptoms in the past. The patient has not recently seen a physician. 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 - Social history:: Smoking status: Patient reports the use of cigarette tobacco products, smokes one-half pack cigarettes per day. ROS: 23:08 Cardiovascular: Negative for chest pain, palpitations, and edema, Back: Negative for jr8 injury and pain, MS/Extremity: Negative for injury and deformity, Skin: Negative for injury, rash, and discoloration, Neuro: Negative for headache, weakness, numbness, tingling, and seizure. 23:08 Constitutional: Positive for body aches, fever. 23:08 ENT: Positive for rhinorrhea, sinus congestion. 23:08 Respiratory: Positive for cough, shortness of breath, wheezing. 23:08 Abdomen/GI: Positive for nausea, vomiting, Negative for abdominal pain. Exam: 23:08 Eyes: Pupils equal round and reactive to light, extra-ocular motions intact. Lids and jr8 lashes normal. Conjunctiva and sclera are non-icteric and not injected. Cornea within normal limits. Periorbital areas with no swelling, redness, or edema. ENT: Nares patent. No nasal discharge, no septal abnormalities noted. Tympanic membranes are normal and external auditory canals are clear. Oropharynx with no redness, swelling, or masses, exudates, or evidence of obstruction, uvula midline. Mucous membranes moist. Neck: Trachea midline, no thyromegaly or masses palpated, and no cervical lymphadenopathy. Supple, full range of motion without nuchal rigidity, or vertebral point tenderness. No Meningismus. Cardiovascular: Tachycardic with a normal S1 and S2. No gallops, murmurs, or rubs. Normal PMI, no JVD. No pulse deficits. Abdomen/GI: Soft, non-tender, with normal bowel sounds. No distension or tympany. No guarding or rebound. No evidence of tenderness throughout. Back: No spinal tenderness. No costovertebral tenderness. Full range of motion. Skin: Warm, dry with normal turgor. Normal color with no rashes, no lesions, and no evidence of cellulitis. MS/ Extremity: Pulses equal, no cyanosis. Neurovascular intact. Full, normal range of motion. Neuro: Awake and alert, GCS 15, oriented to person, place, time, and situation. Cranial nerves II-XII grossly intact. Motor strength 5/5 in all extremities. Sensory grossly intact. 23:08 Respiratory: the patient does not display signs of respiratory distress, Respirations: tachypnea, that is mild, Breath sounds: wheezing: expiratory that is moderate, is heard diffusely. Vital Signs: 22:21 BP 124 / 100; Pulse 109; Resp 24; Temp 98.0; Pulse Ox 100% on R/A; Pain 8/10; df1 22:25 Weight 65.77 kg; Height 5 ft. 6 in. (167.64 cm); df1 23:55 BP 127 / 108; Pulse 95; Resp 20; Pulse Ox 98% on R/A; Pain 0/10; ms4 12/17 01:29 BP 127 / 78; Pulse 87; Resp 18; Pulse Ox 98% on R/A; Pain 0/10; ms4 12/16 22:25 Body Mass Index 23.40 (65.77 kg, 167.64 cm) df1 MDM: 10/07 22:18 Patient medically screened. 8 12/17 00:07 Data reviewed: vital signs, nurses notes, lab test result(s), radiologic studies, plain jr8 films. Data interpreted: Pulse oximetry: on room air is 98 %. Interpretation: normal. Test interpretation: by ED physician or midlevel provider: plain radiologic studies, Possible early infiltrate RLL . Counseling: I had a detailed discussion with the patient and/or guardian regarding: the historical points, exam findings, and any diagnostic results supporting the discharge/admit diagnosis, lab results, radiology results, the need for outpatient follow up, a family practitioner, to return to the emergency department if symptoms worsen or persist or if there are any questions or concerns that arise at home. Response to treatment: the patient's symptoms have markedly improved after treatment. 12/16 22:46 Order name: Basic Metabolic Panel; Complete Time: 23:47 jr8 12/16 22:46 Order name: CBC with Diff; Complete Time: 23:24 8 12/16 22:46 Order name: LFT's; Complete Time: 23:47 jr8 12/16 22:46 Order name: Magnesium; Complete Time: 23:47 jr8 12/16 22:46 Order name: NT PRO-BNP; Complete Time: 23:47 jr8 12/16 22:46 Order name: PT-INR; Complete Time: 23:24 jr8 12/16 22:46 Order name: XRAY Chest (1 view) jr 12/16 23:02 Order name: SARS-COV-2 RT PCR; Complete Time: 00:05 EDMS 12/16 22:46 Order name: EKG; Complete Time: 22:48 jr8 12/16 22:46 Order name: Cardiac monitoring; Complete Time: 22:56 jr8 12/16 22:46 Order name: EKG - Nurse/Tech; Complete Time: 22:56 jr8 12/16 22:46 Order name: IV Saline Lock; Complete Time: 22:56 jr8 12/16 22:46 Order name: Labs collected and sent; Complete Time: 22:56 jr8 12/16 22:46 Order name: O2 Per Protocol; Complete Time: 22:56 jr8 12/16 22:46 Order name: O2 Sat Monitoring; Complete Time: 22:56 jr8 Administered Medications: 12/16 23:05 Drug: SOLU-Medrol (methylPrednisoLONE) 125 mg Route: IVP; Site: right forearm; bs2 23:05 Drug: Albuterol - atroVENT (ipratropium) (3:1) (2.5 mg - 0.5 mg) 3 ml Route: Nebulizer; bs2 23:05 Drug: Zofran (Ondansetron) 4 mg Route: IVP; Site: right forearm; bs2 23:54 Drug: Tussionex Pennkinetic ER (chlorpheniramine-hydrocodone) Suspension 5 ml Route: PO;ms4 12/17 00:15 Drug: Zithromax (azithromycin) 500 mg Route: IVPB; Infused Over: 1 hrs; Site: right ms4 antecubital; 00:16 Drug: Rocephin (cefTRIAXone) 1 grams Route: IV; Rate: calculated rate; Site: right ms4 antecubital; Disposition: 02:51 Co-signature as Attending Physician, Alberto Bustos MD. pkl Disposition Summary: 12/17/20 00:08 Discharge Ordered Location: Home jr8 Problem: new jr8 Symptoms: have improved jr8 Condition: Stable jr8 Diagnosis - Pneumonia, unspecified organism jr8 - Mild intermittent asthma with (acute) exacerbation jr8 Followup: jr8 - With: Private Physician - When: 5 - 6 days - Reason: Recheck today's complaints, Continuance of care, Re-evaluation by your physician Discharge Instructions: - Discharge Summary Sheet jr8 - Asthma, Adult jr8 - Community-Acquired Pneumonia, Adult jr8 Forms: - Medication Reconciliation Form jr8 - Thank You Letter jr8 - Antibiotic Education jr8 - Prescription Opioid Use jr8 - Work release form jr8 Prescriptions: - promethazine-DM 6.25-15 mg/5 mL Oral syrup - take 5 milliliter by ORAL route every 4-6 hours As needed as needed, not to jr8 exceed 30 mL in 24 hours; 100 milliliter; Refills: 0, Product Selection Permitted - Prednisone 20 mg Oral Tablet - take 1 tablet by ORAL route once daily for 5 days; 5 tablet; Refills: 0, jr8 Product Selection Permitted - Albuterol Sulfate 2.5 mg /3 mL (0.083 %) Inhalation Solution for Nebulization - inhale 1 unit by NEBULIZATION route every 8 hours As needed; 1 box; Refills: 0, jr8 Product Selection Permitted - Zithromax Z-Ruiz 250 mg Oral Tablet - take 1 tablet by ORAL route as directed for 5 days Day 1 - take two (2) tablets jr8 one time. Day 2, 3, 4 , 5 take one (1) tablet once daily.; 6 tablet; Refills: 0, Product Selection Permitted Signatures: Dispatcher [employer] EDMS Alberto Bustos MD MD pkl Ceasar Nova PA PA jr8 Cookie Dean RN RN bs2 Salina Coronado RN RN ms4 Kimberly Vega df1 Corrections: (The following items were deleted from the chart) 12/16 23:02 22:46 CORONAVIRUS+BRZ ordered. EDNE EDMS
[2020-12-17] MEDS ORDERED: HYDROCODONE/CHLORPHEN 5 ML/OSYR ONE (00:17)
[2020-12-17] MEDS ORDERED: AZITHROMYCIN 500 MG INJ IVPB ONE (00:40)
[2020-12-17] MEDS ORDERED: CEFTRIAXONE 1000 MG/VIAL ONE (00:40)
[2020-12-17] MEDS ORDERED: NA CHLORIDE 0.9% 250 ML ONE (00:40)
[2020-12-17 01:39] VITALS: TEMP 98
[2020-12-17 01:40] VITALS: O2SAT 98
[2020-12-17 01:42] VITALS: BP 127/78
--- NOTE | 2020-12-17 08:49 | RAD REPORT ---
EXAM DESCRIPTION: RAD - Chest Single View - 12/16/2020 11:49 pm CLINICAL HISTORY: DYSPNEA Chest pain. COMPARISON: Chest Single View dated 12/23/2019; Chest Pa And Lat (2 Views) dated 11/26/2018; CHEST PA AND LAT 2 VIEW dated 10/10/2013; CHEST PA AND LAT 2 VIEW dated 10/03/2013 FINDINGS: Portable technique limits examination quality. Mild interstitial lung opacities bilaterally greater in lung bases suggests underlying viral infectio n or bronchitis. The heart is normal in size. No displaced fractures.
== END 2020-12-17 01:30 | disposition home or self-care (01) ==
LOC: ER 22:02
DX: J18.9 Pneumonia, unspecified organism (principal); J45.21 Mild intermittent asthma with (acute) exacerbation; Z88.8 Allergy status to other drugs, medicaments and biological substances; Z88.6 Allergy status to analgesic agent; F17.210 Nicotine dependence, cigarettes, uncomplicated; Z20.822 Contact with and (suspected) exposure to COVID-19
CPT/HCPCS: 36415; 71045; 80048; 80076; 83735; 83880; 85025; 85610; 93005; 99284; J0456; J2405; J2930; J7050; U0003

== ENCOUNTER 2021-09-22 16:57 | Emergency (ER) | payer SELFPAY ==
[2021-09-22] MEDS ORDERED: ACETAMINOPHEN 500 MG TAB ONE (17:27)
--- NOTE | 2021-09-22 18:03 | RAD REPORT ---
EXAM DESCRIPTION: RAD - Chest Single View - 09/22/2021 5:54 pm CLINICAL HISTORY: COPD Chest pain. COMPARISON: Chest Single View dated 12/16/2020; Chest Single View dated 12/23/2019; Chest Pa And Lat (2 Views) dated 11/26/2018; CHEST PA AND LAT 2 VIEW dated 10/10/2013 FINDINGS: Portable technique limits examination quality. The lungs are mildly emphysematous but grossly clear. The heart is normal in size. No displaced fract ures. IMPRESSION: No acute intrathoracic process suspected.
--- NOTE | 2021-09-22 18:55 | EDPHYS ---
Physician Documentation [facility] Name: Mira Trinidad Age: 35 yrs Sex: Female : 1985 Arrival Date: 09/22/2021 Time: 16:59 Bed Treatment Private MD: Mary Becerril C ED Physician Henrique Graves HPI: 09/22 17:26 This 35 yrs old Female presents to ER via Ambulatory with complaints of Cough, jr11 Congestion, Headache. 17:26 The patient or guardian reports cough, that is intermittent, mostly dry , flu symptoms, jr11 myalgias. Onset: The symptoms/episode began/occurred 7 day(s) ago. Severity of symptoms: At their worst the symptoms were moderate, in the emergency department the symptoms are actually worse. Modifying factors: The symptoms are alleviated by nothing, the symptoms are aggravated by exertion. Associated signs and symptoms: Pertinent positives: fever, rhinorrhea. 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 - Social history:: Smoking status: Patient reports the use of cigarette tobacco products, smokes one-half pack cigarettes per day. ROS: 17:26 All other systems are negative. jr11 Exam: 17:26 Constitutional: This is a well developed, well nourished patient who is awake, alert, jr11 and in no acute distress. Head/Face: Normocephalic, atraumatic. Eyes: Extra-ocular motions intact. Lids and lashes normal. Conjunctiva and sclera are non-icteric and not injected. Cornea within normal limits. Periorbital areas with no swelling, redness, or edema. ENT: Nares patent. No nasal discharge, no septal abnormalities noted. Oropharynx with no redness, swelling, or masses, exudates, or evidence of obstruction, uvula midline. Mucous membranes moist. Chest/axilla: Normal chest wall appearance and motion. Nontender with no deformity. No lesions are appreciated. Cardiovascular: Regular rate and rhythm with a normal S1 and S2. No gallops, murmurs, or rubs. Normal PMI, no JVD. No pulse deficits. Respiratory: diffuse wheezing, no distress Abdomen/GI: Soft, non-tender, with normal bowel sounds. No distension or tympany. No guarding or rebound. No evidence of tenderness throughout. Back: No spinal tenderness. No costovertebral tenderness. Full range of motion. Skin: Warm, dry with normal turgor. Normal color with no rashes, no lesions, and no evidence of cellulitis. MS/ Extremity: Pulses equal, no cyanosis. Neurovascular intact. Full, normal range of motion. Neuro: Awake and alert, GCS 15, oriented to person, place, time, and situation. No gross motor or sensory deficits. Vital Signs: 17:17 BP 126 / 98; Pulse 78; Resp 17; Temp 98.1; Pulse Ox 100% on R/A; Weight 68.04 kg; jl7 Height 5 ft. 7 in. (170.18 cm); Pain 7/10; 17:17 Body Mass Index 23.49 (68.04 kg, 170.18 cm) jl7 MDM: 17:24 Patient medically screened. [facility] 17:26 Differential Diagnosis: Upper Respiratory Infection Viral Syndrome Pneumonia Other [facility]. Data reviewed:. Medical screen evaluation completed. [facility] emergency medical condition absent. ED course: Patient is a 35-year-old that has been sick for 1 week, runny nose congestion cough, worsening. Patient is a smoker, if x-ray is negative, will treat with a Z-Ruiz. If she is positive for COVID, she has been out over a week, no indication for antiviral. We will also treat with steroids.. 18:54 ED course: significant other +, pt likely recovering from this but 7 days out, no anti [facility] viral . 09/22 17:18 Order name: COVID-19 SARS RT PCR (Document "Date of Onset" if Symptomatic) [facility] 09/22 17:24 Order name: CXR XRAY; Complete Time: 18:05 [facility] Administered Medications: 17:30 Drug: Tylenol 1000 mg Route: PO; ld1 19:08 Follow up: Response: No adverse reaction jl7 Disposition Summary: 09/22/21 18:55 Discharge Ordered Location: Home jr11 Condition: Stable jr11 Diagnosis - Acute bronchitis, unspecified jr11 - Moderate persistent asthma with (acute) exacerbation jr11 Followup: jr11 - With: Private Physician - When: 2 - 3 days - Reason: Continuance of care Discharge Instructions: - Discharge Summary Sheet jr11 - Acute Bronchitis, Adult jr11 - Asthma, Adult jr11 Forms: - Medication Reconciliation Form jr11 - Thank You Letter jr11 - Antibiotic Education jr11 - Prescription Opioid Use jr11 Prescriptions: - Ventolin HFA 90 mcg/actuation Inhalation HFA aerosol inhaler - inhale 2 puff by INHALATION route every 4 hours; 1 Inhaler; Refills: 0, Product jr11 Selection Permitted - Prednisone 20 mg Oral Tablet - take 3 tablets by ORAL route once daily for 5 days; 15 tablet; Refills: 0, jr11 Product Selection Permitted - Zithromax Z-Ruiz 250 mg Oral Tablet - take 1 tablet by ORAL route as directed for 5 days Day 1 - take two (2) tablets jr11 one time. Day 2, 3, 4 , 5 take one (1) tablet once daily.; 6 tablet; Refills: 0, Product Selection Permitted Signatures: Dispatcher [employer] Enmanuel Cadet RN RN jl7 Shirley Robles RN RN ld1 Henrique Graves MD MD jr11
--- NOTE | 2021-09-22 18:55 | ER ---
Nurse's Notes [facility] Name: Mira Trinidad Age: 35 yrs Sex: Female : 1985 Arrival Date: 09/22/2021 Time: 16:59 Bed Treatment Private MD: Mary Becerril C Diagnosis: Acute bronchitis, unspecified;Moderate persistent asthma with (acute) exacerbation Presentation: 09/22 17:17 Chief complaint: Patient states: Cough, congestion, DALTON x 1 week. Coronavirus screen: jl7 Vaccine status: Patient reports being unvaccinated. congestion, cough unrelated to allergies, headache, Client presents with at least one sign or symptom that may indicate coronavirus-19. Standard/surgical mask placed on the client. Provider contacted for isolation considerations. Ebola Screen: No symptoms or risks identified at this time. Initial Sepsis Screen: Does the patient meet any 2 criteria? No. Patient's initial sepsis screen is negative. Does the patient have a suspected source of infection? No. Patient's initial sepsis screen is negative. Risk Assessment: Do you want to hurt yourself or someone else? Patient reports no desire to harm self or others. Onset of symptoms was September 15, 2021. 17:17 Method Of Arrival: Ambulatory [facility] 17:17 Acuity: MARK ANTHONY 4 jl7 Triage Assessment: 17:21 General: Appears in no apparent distress. uncomfortable, Behavior is calm, cooperative, jl7 appropriate for age. Pain: Complains of pain in DALTON, body aches. Neuro: Level of Consciousness is awake, alert, obeys commands, Oriented to person, place, time, situation. Respiratory: not auscultated. Derm: Skin is pink, warm \\T\\ dry. 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 - Social history:: Smoking status: Patient reports the use of cigarette tobacco products, smokes one-half pack cigarettes per day. Screenin:09 Abuse screen: Denies threats or abuse. Denies injuries from another. Nutritional jl7 screening: No deficits noted. Tuberculosis screening: No symptoms or risk factors identified. Fall Risk None identified. Vital Signs: 17:17 BP 126 / 98; Pulse 78; Resp 17; Temp 98.1; Pulse Ox 100% on R/A; Weight 68.04 kg; jl7 Height 5 ft. 7 in. (170.18 cm); Pain 7/10; 17:17 Body Mass Index 23.49 (68.04 kg, 170.18 cm) jl7 ED Course: 16:59 Patient arrived in ED. am2 17:00 Mary Becerril FNP is Private Physician. am2 17:18 Henrique Graves MD is Attending Physician. jr11 17:21 Triage completed. jl7 17:21 Arm band placed on right wrist. jl7 17:28 COVID swab sent to lab. jl7 17:30 Shirley Robles, RN is Primary Nurse. ld1 17:30 COVID-19 SARS RT PCR (Document "Date of Onset" if Symptomatic) Sent. ld1 17:56 CXR XRAY In Process Unspecified. EDMS 19:08 Patient has correct armband on for positive identification. jl7 19:08 No provider procedures requiring assistance completed. Patient did not have IV access jl7 during this emergency room visit. Administered Medications: 17:30 Drug: Tylenol 1000 mg Route: PO; ld1 19:08 Follow up: Response: No adverse reaction jl7 Medication: 19:09 VIS not applicable for this client. jl7 Outcome: 18:55 Discharge ordered by . jr11 19:08 Discharged to home ambulatory. jl7 19:08 Condition: stable 19:08 Discharge instructions given to patient, Instructed on discharge instructions, follow up and referral plans. medication usage, Demonstrated understanding of instructions, follow-up care, medications, Prescriptions given X 3. 19:09 Patient left the ED. jl7 Signatures: Dispatcher [employer] EDEnmanuel Barraza RN RN jl7 Stacey Samuel am2 Shirley Robles, LUIS ANTONIO RN ld1 Henrique Graves MD MD jr
[2021-09-22 19:28] VITALS: BP 126/98; TEMP 98.1; O2SAT 100
== END 2021-09-22 19:09 | disposition home or self-care (01) ==
LOC: ER 16:57
DX: U07.1 COVID-19 (principal); J20.9 Acute bronchitis, unspecified; J45.41 Moderate persistent asthma with (acute) exacerbation; F17.210 Nicotine dependence, cigarettes, uncomplicated; Z88.5 Allergy status to narcotic agent
CPT/HCPCS: 71045; 99284; U0003

== ENCOUNTER 2022-05-19 22:47 | Emergency (ER) | payer SELFPAY ==
[2022-05-19] MEDS ORDERED: HYDROCODONE/CHLORPHEN 5 ML/OSYR ONE (23:35)
[2022-05-19] MEDS ORDERED: IPRATROPIUM BROM 0.5MG/2.5ML ONE (23:36)
[2022-05-19] MEDS ORDERED: ALBUTEROL 2.5 MG/3 ML NEB SOL ONE (23:36)
[2022-05-19 23:57] LABS: Urine Blood Trace-intact (Negative); Urine Glucose Negative (Negative); Urine Protein Negative (Negative); Urine Specific Gravity <=1.005 (1.005-1.030)
[2022-05-20] MEDS ORDERED: IBUPROFEN 400 MG TAB ONE (00:02)
[2022-05-20 00:27] LABS: SARS-COV-2 RT PCR NEGATIVE (NEGATIVE)
[2022-05-20 05:48] VITALS: BP 108/71; TEMP 99.3; O2SAT 92
--- NOTE | 2022-05-20 21:45 | RAD REPORT ---
EXAM DESCRIPTION: RAD - Chest Pa And Lat (2 Views) - 05/20/2022 12:05 am CLINICAL HISTORY: The patient is 36 years old and is Female; COUGH TECHNIQUE: Frontal and lateral views of the chest. COMPARISON: No relevant prior studies available. FINDINGS: Lungs: Unremarkable. No consolidation. Pleural space: Unremarkable. No pneumothorax. Heart: Unremarkable. Mediastinum: Unremarkable. Bones/joints: Unremarkable. IMPRESSION: No acute findings in the chest. 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 The interpreting radiologist is fully responsible for the content of the report.
--- NOTE | 2022-06-02 16:26 | ER ---
Nurse's Notes [facility] Name: Mira Trinidad Age: 36 yrs Sex: Female : 1985 Arrival Date: 05/19/2022 Time: 22:50 Bed 9 Private MD: Diagnosis: Cough;Acute pharyngitis, unspecified;Otitis media, unspecified, bilateral Presentation: 05/19 23:24 Chief complaint: Patient states: "I've been coughing, congested, sore throat, and right mb9 ear pain for 1 week now". Coronavirus screen: Vaccine status: Patient reports being unvaccinated. Ebola Screen: No symptoms or risks identified at this time. Initial Sepsis Screen: Does the patient meet any 2 criteria? No. Patient's initial sepsis screen is negative. Does the patient have a suspected source of infection? No. Patient's initial sepsis screen is negative. Risk Assessment: Do you want to hurt yourself or someone else? Patient reports no desire to harm self or others. Onset of symptoms was May 12, 2022. 23:24 Method Of Arrival: Ambulatory [facility] 23:24 Acuity: MARK ANTHONY 4 mb9 Triage Assessment: 23:26 General: Appears uncomfortable, Behavior is cooperative. Pain: Complains of pain in mb9 right ear and throat Pain does not radiate. Pain currently is 7 out of 10 on a pain scale. Quality of pain is described as aching, throbbing. EENT: Oral mucosa is dry. Throat is reddened. Neuro: Level of Consciousness is awake, alert, obeys commands, Oriented to person, place, time, situation, Appropriate for age. Cardiovascular: Rhythm is sinus tachycardia. Respiratory: Airway is patent Respiratory effort is even, unlabored, Respiratory pattern is regular, symmetrical. GI: Reports nausea. Derm: Skin is pink, warm \\T\\ dry. Musculoskeletal: Range of motion: intact in all extremities. 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 - Social history:: Smoking status: Patient reports the use of cigarette tobacco products, smokes one-half pack cigarettes per day. Screenin:27 [facility] ED Fall Risk Assessment (Adult) History of falling in the last 3 months, mb9 including since admission No falls in past 3 months (0 pts) Confusion or Disorientation No (0 pts) Intoxicated or Sedated No (0 pts) Impaired Gait No (0 pts) Mobility Assist Device Used No (0 pt) Altered Elimination No (0 pt) Score/Fall Risk Level 0 - 2 = Low Risk Oriented to surroundings, Maintained a safe environment, Educated pt \\T\\ family on fall prevention, incl call for assistance when getting out of bed. Abuse screen: Denies threats or abuse. Nutritional screening: No deficits noted. Tuberculosis screening: No symptoms or risk factors identified. Assessment: 23:27 Reassessment: see triage assessment. mb9 23:59 Reassessment: pt taken to XRAY via wheelchair. 9 05/20 00:41 Reassessment: Patient is alert, oriented x 3, equal unlabored respirations, skin bb warm/dry/pink. awaiting diagnostic results. 01:06 Reassessment: Patient is alert, oriented x 3, equal unlabored respirations, skin bb warm/dry/pink. pt verbalized understanding of and agrees to plan of care discharge instructions given pt ambulated with steady gait to exit. Vital Signs: 05/19 23:24 BP 108 / 80; Pulse 115; Resp 18; Temp 100.1(O); Pulse Ox 97% on R/A; Weight 65.77 kg; mb9 Height 5 ft. 6 in. ; Pain 09/18; 05/20 00:31 BP 108 / 71; Pulse 102; Resp 18; Temp 99.3(O); Pulse Ox 92% on R/A; oe 05/19 23:24 Body Mass Index 23.40 (65.77 kg, 167.64 cm) 9 05/19 23:24 Pain Scale: Adult 9 ED Course: 05/19 22:50 Patient arrived in ED. ja2 22:54 Dioni Martinez PA is PHCP. cp 22:54 Dioni Thrasher MD is Attending Physician. cp 23:24 Arm band placed on. mb9 23:25 Triage completed. mb9 23:27 Placed in gown. Bed in low position. Call light in reach. Side rails up X 1. Client mb9 placed on continuous cardiac and pulse oximetry monitoring. NIBP monitoring applied. 23:28 No provider procedures requiring assistance completed. mb9 23:38 COVID-19/FLU A+B Sent. mb9 23:38 Strep Sent. mb9 23:39 Patient did not have IV access during this emergency room visit. mb9 23:49 Deanne Mccarty, LUIS ANTONIO is Primary Nurse. mb9 05/20 00:11 XRAY Chest Pa And Lat (2 Views) In Process Unspecified. EDMS Administered Medications: 05/19 23:38 Drug: Tussionex Pennkinetic ER PO Suspension 5 ml Route: PO; mb9 23:49 Follow up: Response: No adverse reaction mb9 23:38 Drug: Albuterol Inhalation 2.5 mg Route: Inhalation; mb9 23:50 Follow up: Response: No adverse reaction mb9 23:38 Drug: Ipratropium Inhalation Aerosol 0.5 mg Route: Inhalation; mb9 23:50 Follow up: Response: No adverse reaction mb9 23:58 Drug: Ibuprofen PO 800 mg Route: PO; mb9 05/20 00:51 CANCELLED (Physician Discretion): MethylPrednisoLONE IVP 80 mg IVP once cp Medication: 05/19 23:27 VIS not applicable for this client. mb9 Outcome: 05/20 00:52 Discharge ordered by . cp 01:08 Discharged to home ambulatory. bb 01:08 Condition: stable 01:08 Discharge instructions given to patient, Instructed on discharge instructions, follow up and referral plans. medication usage, Demonstrated understanding of instructions, follow-up care, medications, Prescriptions given X x 5 01:08 Patient left the ED. bb Signatures: Dispatcher [employer] EDMS Kasandra Garcia RN RN bb Page, Corey, PA PA cp Espinosa, Orlando oe Alexander, Jessica ja2 Breneman, Mary Beth, LUIS ANTONIO SALMON mb9
--- NOTE | 2022-06-02 16:26 | EDPHYS ---
Physician Documentation [facility] Name: Mira Trinidad Age: 36 yrs Sex: Female : 1985 Arrival Date: 05/19/2022 Time: 22:50 Bed 9 Private MD: ED Physician Dioni Thrasher HPI: 05/19 23:25 This 36 yrs old Female presents to ER via Ambulatory with complaints of Ear Pain, Sore cp Throat, Dizziness, Fever, Sinus Congestion. 23:25 The patient presents with pain. Onset: The symptoms/episode began/occurred 1 week(s) cp ago. Associated signs and symptoms: Pertinent positives: dizziness, fever, nausea, sore throat, cough. Severity of symptoms: in the emergency department the symptoms are unchanged despite home interventions. 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 - Social history:: Smoking status: Patient reports the use of cigarette tobacco products, smokes one-half pack cigarettes per day. ROS: 23:30 Constitutional: Positive for body aches, Negative for fever, poor PO intake. cp 23:30 Eyes: Negative for injury, pain, redness, and discharge. cp 23:30 ENT: Positive for ear pain, sore throat, Negative for drainage from ear(s), difficulty swallowing, difficulty handling secretions. 23:30 Respiratory: Positive for cough, Negative for wheezing. 23:30 Abdomen/GI: Positive for nausea, Negative for vomiting, diarrhea, constipation. 23:30 Neuro: Positive for dizziness, headache, Negative for altered mental status. 23:30 All other systems are negative. Exam: 23:35 Constitutional: The patient appears in no acute distress, alert, awake, non-toxic, well cp developed, well nourished, uncomfortable. 23:35 Head/Face: Normocephalic, atraumatic. cp 23:35 Eyes: Periorbital structures: appear normal, Conjunctiva: normal, no exudate, no injection, Sclera: no appreciated abnormality, Lids and lashes: appear normal, bilaterally. 23:35 ENT: External ear(s): are unremarkable, Ear canal(s): are normal, clear, TM's: erythema, that is mild, bilaterally, retracted bilaterally, Nose: is normal, Mouth: Lips: moist, Oral mucosa: pink and intact, moist, Posterior pharynx: Airway: no evidence of obstruction, patent. 23:35 Neck: ROM/movement: is normal, is supple, without pain, no range of motions limitations, no meningismus. 23:35 Chest/axilla: Inspection: normal. 23:35 Cardiovascular: Rate: tachycardic, Rhythm: regular. 23:35 Respiratory: the patient does not display signs of respiratory distress, Respirations: normal, no use of accessory muscles, no retractions, labored breathing, is not present, Breath sounds: stridor, is not appreciated, + upper airway congestion. wheezing: is not appreciated. 23:35 Abdomen/GI: Exam negative for discomfort, distension, guarding, Inspection: abdomen appears normal. 23:35 Skin: no rash present. 23:35 Neuro: Orientation: to person, place \T\ time. Mentation: is normal, Motor: moves all fours, strength is normal, Sensation: is normal. Vital Signs: 23:24 BP 108 / 80; Pulse 115; Resp 18; Temp 100.1(O); Pulse Ox 97% on R/A; Weight 65.77 kg; mb9 Height 5 ft. 6 in. ; Pain 09/18; 05/20 00:31 BP 108 / 71; Pulse 102; Resp 18; Temp 99.3(O); Pulse Ox 92% on R/A; oe 05/19 23:24 Body Mass Index 23.40 (65.77 kg, 167.64 cm) mb9 05/19 23:24 Pain Scale: Adult mb9 MDM: 05/19 23:03 Patient medically screened. cp 05/20 00:00 Differential diagnosis: otitis media, otitis externa, strep throat, pneumonia, cp COVID-19, influenza. 00:52 Data reviewed: vital signs, nurses notes, lab test result(s), radiologic studies, plain cp films. 00:52 Independent interpretation of the following test(s) in the Emergency Department X-Ray: cp My interpretation is chest images negative for focal pneumonia. Test considered but Not performed: Labs: cbc, bmp. Counseling: I had a detailed discussion with the patient and/or guardian regarding: the historical points, exam findings, and any diagnostic results supporting the discharge/admit diagnosis, the presence of at least one elevated blood pressure reading (>120/80) during this emergency department visit, lab results, the need for outpatient follow up, for definitive care, to return to the emergency department if symptoms worsen or persist or if there are any questions or concerns that arise at home. Response to treatment: the patient's symptoms have mildly improved after treatment. 05/19 23:22 Order name: COVID-19/FLU A+B; Complete Time: 00:46 cp 05/19 23:22 Order name: Strep; Complete Time: 00:46 cp 05/19 23:58 Order name: Urine Dipstick-Ancillary; Complete Time: 00:46 EDMS 05/20 00:46 Interpretation: Normal except: UBLD Trace-intact. cp 05/20 00:11 Order name: Throat Culture EDTX 05/19 23:22 Order name: XRAY Chest Pa And Lat (2 Views) cp 05/19 23:22 Order name: Urine Dipstick-Ancillary (obtain specimen); Complete Time: 23:57 cp Administered Medications: 05/19 23:38 Drug: Tussionex Pennkinetic ER PO Suspension 5 ml Route: PO; mb9 23:49 Follow up: Response: No adverse reaction mb9 23:38 Drug: Albuterol Inhalation 2.5 mg Route: Inhalation; mb9 23:50 Follow up: Response: No adverse reaction mb9 23:38 Drug: Ipratropium Inhalation Aerosol 0.5 mg Route: Inhalation; mb9 23:50 Follow up: Response: No adverse reaction mb9 23:58 Drug: Ibuprofen PO 800 mg Route: PO; mb9 05/20 00:51 CANCELLED (Physician Discretion): MethylPrednisoLONE IVP 80 mg IVP once cp Disposition Summary: 05/20/22 00:52 Discharge Ordered Location: Home cp Problem: new cp Symptoms: have improved cp Condition: Stable cp Diagnosis - Cough cp - Acute pharyngitis, unspecified cp - Otitis media, unspecified, bilateral cp Followup: cp - With: Private Physician - When: 2 - 3 days - Reason: Worsening of condition Discharge Instructions: - Discharge Summary Sheet cp - Otitis Media, Adult cp - Sore Throat cp - Cool Mist Vaporizer cp - Cough, Adult cp Forms: - Work release form bb - Medication Reconciliation Form cp - Thank You Letter cp - Antibiotic Education cp - Prescription Opioid Use cp Prescriptions: - Bromfed DM 2-30-10 mg/5 mL Oral syrup - administer 10 milliliter by ORAL route every 6 hours as needed for cold cp symptoms; 180 milliliter; Refills: 0, Product Selection Permitted - ipratropium-albuterol 0.5 mg-3 mg(2.5 mg base)/3 mL Inhalation Solution for Nebulization - nebulize 3 milliliter by INHALATION route every 6 hours As needed as needed for cp wheezing; 1 Pack; Refills: 0, Product Selection Permitted - Augmentin 875-125 mg Oral Tablet - take 1 tablet by ORAL route every 12 hours for 10 days; 20 tablet; Refills: 0, cp Product Selection Permitted - Ibuprofen 800 mg Oral Tablet - take 1 tablet by ORAL route every 8 hours As needed take with food; 30 tablet; cp Refills: 0, Product Selection Permitted - Medrol (Ruiz) 4 mg Oral Tablets, Dose Pack - take 1 tablet by ORAL route as directed - follow package instructions; 1 cp packet; Refills: 0, Product Selection Permitted Signatures: Dispatcher [employer] EDMS Dioni Martinez PA PA cp Breneman, Mary Beth, RN RN mb9 Corrections: (The following items were deleted from the chart) 05/19 23:38 23:22 Urine Test ordered. cp mb9 05/20 00:51 00:50 MethylPrednisoLONE IVP 80 mg IVP once ordered. cp cp
== END 2022-05-20 01:08 | disposition home or self-care (01) ==
LOC: ER 22:47
DX: R05.9 Cough, unspecified (principal); J02.9 Acute pharyngitis, unspecified; H66.93 Otitis media, unspecified, bilateral; Z20.822 Contact with and (suspected) exposure to COVID-19
CPT/HCPCS: 0240U; 71046; 81003; 87070; 87081; 99285; J7613; J7644

== ENCOUNTER 2022-10-31 09:21 | Emergency (ER) | payer SELFPAY ==
[2022-10-31 10:13] LABS: SARS-CoV-2 Antigen Rapid Res Negative (Negative)
--- NOTE | 2022-10-31 10:49 | EDPHYS ---
Physician Documentation [facility] Name: Mira Trinidad Age: 37 yrs Sex: Female : 1985 Arrival Date: 10/31/2022 Time: 09: Bed DIS5 Private MD: ED Physician Dioni Thrasher HPI: 10/31 09:47 This 37 yrs old Female presents to ER via Ambulatory with complaints of Flu Symptoms, sb4 Diarrhea. 09:47 Onset: The symptoms/episode began/occurred 5 day(s) ago. Associated signs and symptoms: sb4 Pertinent positives: congestion, diarrhea, Pertinent negatives: abdominal pain, chest pain, vomiting. Modifying factors: The patient symptoms are alleviated by nothing, the patient symptoms are aggravated by nothing. The patient has not experienced similar symptoms in the past. The patient has not experienced similar symptoms in the past, but family has similar symptoms, significant other. The patient has not recently seen a physician. Historical: - Allergies: 09:27 Augmentin; iw 09:27 Haloperidol; iw 09:27 Morphine; iw - Home Meds: 09:27 Ibuprofen Oral [Active]; iw - PMHx: 09:27 Asthma; osteoarthritis; iw - PSHx: 09:27 Cholecystectomy; Total abdominal hysterectomy; iw - Immunization history:: Adult Immunizations not up to date. - Social history:: Smoking status: Patient/guardian denies using tobacco, Stopped _ months ago 3. ROS: 09:47 Constitutional: Negative for fever, chills, and weight loss, Eyes: Negative for injury, sb4 pain, redness, and discharge, Cardiovascular: Negative for chest pain, palpitations, and edema, Respiratory: Negative for shortness of breath, cough, wheezing, and pleuritic chest pain, Back: Negative for injury and pain, MS/Extremity: Negative for injury and deformity, Skin: Negative for injury, rash, and discoloration. 09:47 ENT: Positive for sinus congestion, sinus pain. 09:47 Abdomen/GI: Positive for nausea, diarrhea, Negative for abdominal pain, vomiting. 09:47 All other systems are negative. Exam: 09:47 Constitutional: This is a well developed, well nourished patient who is awake, alert, sb4 and in no acute distress. Head/Face: Normocephalic, atraumatic. Eyes: Extra-ocular motions intact. Periorbital areas with no swelling, redness, or edema. ENT: Mucous membranes moist. Cardiovascular: Regular rate and rhythm with a normal S1 and S2. Respiratory: Lungs have equal breath sounds bilaterally, clear to auscultation and percussion. No rales, rhonchi or wheezes noted. No increased work of breathing, no retractions or nasal flaring. Abdomen/GI: Soft, non-tender, no distension. Skin: Warm, dry with normal turgor. Normal color with no rashes, no lesions, and no evidence of cellulitis. MS/ Extremity: Pulses equal, no cyanosis. Neurovascular intact. Full, normal range of motion. Vital Signs: 09:25 BP 152 / 108; Pulse 95; Resp 18; Temp 97.6; Pulse Ox 100% on R/A; Weight 68.95 kg; iw Height 5 ft. 6 in. ; Pain 7/10; 11:09 BP 135 / 99; Pulse 64; Resp 18; Temp 97.9(O); Pulse Ox 99% ; nj1 09:25 Body Mass Index 24.53 (68.95 kg, 167.64 cm) iw 09:25 Pain Scale: Adult iw MDM: 09:28 Patient medically screened. sb4 09:47 Differential diagnosis: viral Infection, bacterial infection, URI, bronchitis, sb4 gastroenteritis. 10:47 Data reviewed: vital signs, nurses notes, lab test result(s), and as a result, I will sb4 discharge patient. Test considered but Not performed: Labs: not indicated, non toxic. Historians other than the Patient: Spouse/Significant Other: significant other. Care significantly affected by the following chronic conditions: athma. Counseling: I had a detailed discussion with the patient and/or guardian regarding the historical points, exam findings, and any diagnostic results supporting the discharge/admit diagnosis, radiology results, to return to the emergency department if symptoms worsen or persist or if there are any questions or concerns that arise at home. 10/31 09:32 Order name: SARS RAPID; Complete Time: 10:13 sb4 10/31 09:32 Order name: Flu; Complete Time: 10:25 sb4 Administered Medications: 11:00 Drug: Dexamethasone IM 10 mg Route: IM; Site: left gluteus; alin 11:27 Follow up: Response: No adverse reaction nj1 Disposition Summary: 10/31/22 10:48 Discharge Ordered Location: Home sb4 Problem: new sb4 Symptoms: are unchanged sb4 Condition: Stable sb4 Diagnosis - Acute upper respiratory infection, unspecified sb4 Followup: sb4 - With: Private Physician - When: As needed - Reason: Recheck today's complaints, Continuance of care, Re-evaluation by your physician Discharge Instructions: - Discharge Summary Sheet sb4 - Upper Respiratory Infection, Adult, [id number] sb4 Forms: - Work release form sb4 - Medication Reconciliation Form sb4 - Thank You Letter sb4 - Antibiotic Education sb4 - Prescription Opioid Use sb4 - Patient Portal Instructions sb4 - Leadership Thank You Letter sb4 Prescriptions: - azithromycin 250 mg Oral tablet - take 1 dose pack by ORAL route as directed on dose pack For 250 mg dose pack: sb4 take 500 mg today (day 1), then 250 mg for 4 days (days 2-5); 1 Pack; Refills: 0, Product Selection Permitted Signatures: Dispatcher [employer] Katherine Lima, Livia Sanchez RN, PA-C PA-C sb4 Audrey Fay RN RN nj1
--- NOTE | 2022-10-31 10:49 | ER ---
Nurse's Notes [facility] Name: Mira Trinidad Age: 37 yrs Sex: Female : 1985 Arrival Date: 10/31/2022 Time: 09:21 Bed DIS5 Private MD: Diagnosis: Acute upper respiratory infection, unspecified Presentation: 10/31 09:25 Chief complaint: Patient states: for like 4-5 days has been having sinus headache and iw weak and pain all over, diarrhea X 2-3 days , subj fever last night. Coronavirus screen: Client presents with at least one sign or symptom that may indicate coronavirus-19. Ebola Screen: Patient negative for fever greater than or equal to 101.5 degrees Fahrenheit, and additional compatible Ebola Virus Disease symptoms Patient denies exposure to infectious person. Patient denies travel to an Ebola-affected area in the 21 days before illness onset. No symptoms or risks identified at this time. Initial Sepsis Screen: Does the patient meet any 2 criteria? No. Patient's initial sepsis screen is negative. Does the patient have a suspected source of infection? No. Patient's initial sepsis screen is negative. Risk Assessment: Do you want to hurt yourself or someone else? Patient reports no desire to harm self or others. Onset of symptoms was October 27, 2022. 09:25 Method Of Arrival: Ambulatory iw 09:25 Acuity: MARK ANTHONY 4 iw Historical: - Allergies: 09:27 Augmentin; iw 09:27 Haloperidol; iw 09:27 Morphine; iw - Home Meds: :27 Ibuprofen Oral [Active]; iw - PMHx: :27 Asthma; osteoarthritis; iw - PSHx: 09:27 Cholecystectomy; Total abdominal hysterectomy; iw - Immunization history:: Adult Immunizations not up to date. - Social history:: Smoking status: Patient/guardian denies using tobacco, Stopped _ months ago 3. Screenin:[address] [facility] ED Fall Risk Assessment (Adult) Score/Fall Risk Level 0 - 2 = Low Risk nj1 Oriented to surroundings, Maintained a safe environment, Hourly rounding (assess needs \T\ fall precautionary measures) done. Abuse screen: Denies threats or abuse. Denies injuries from another. Nutritional screening: No deficits noted. Tuberculosis screening: No symptoms or risk factors identified. Assessment: 09:40 General: Appears in no apparent distress. comfortable, Behavior is calm, cooperative, nj1 appropriate for age. Pain: Denies pain. Neuro: Level of Consciousness is awake, alert, obeys commands, Oriented to person, place, time, situation. Cardiovascular: Patient's skin is warm and dry. Respiratory: Airway is patent Respiratory effort is even, unlabored. GI: Reports diarrhea. Vital Signs: 09:25 BP 152 / 108; Pulse 95; Resp 18; Temp 97.6; Pulse Ox 100% on R/A; Weight 68.95 kg; iw Height 5 ft. 6 in. ; Pain 7/10; 11:09 BP 135 / 99; Pulse 64; Resp 18; Temp 97.9(O); Pulse Ox 99% ; nj1 09:25 Body Mass Index 24.53 (68.95 kg, 167.64 cm) iw 09:25 Pain Scale: Adult ED Course: 09:23 Patient arrived in ED. rg4 09:27 Triage completed. iw 09:27 [facility] Hill [facility]. sb4 09:27 Dioni Thrasher MD is Attending Physician. sb4 09:28 Arm band placed on. iw 09:34 Audrey Fay, RN is Primary Nurse. nj1 09:40 Patient has correct armband on for positive identification. Call light in reach. Adult nj1 w/ patient. 09:40 Provided Education on: call light. nj1 11:27 No provider procedures requiring assistance completed. Patient did not have IV access nj1 during this emergency room visit. Administered Medications: 11:00 Drug: Dexamethasone IM 10 mg Route: IM; Site: left gluteus; nj1 11:27 Follow up: Response: No adverse reaction nj1 Medication: 11:27 VIS not applicable for this client. nj1 Outcome: 10:48 Discharge ordered by . sb4 11:27 Discharged to home ambulatory. nj1 11:27 Condition: stable 11:27 Discharge instructions given to patient, Instructed on discharge instructions, follow up and referral plans. medication usage, Demonstrated understanding of instructions, follow-up care, medications, Prescriptions given X 1. 11:28 Patient left the ED. nj1 Signatures: Katherine Eid RN RN Fátima Ordoñez rg4 Livia Hill PA-C PA-C 4 Audrey Fay, RN RN nj1 Corrections: (The following items were deleted from the chart) 09:27 09:25 Pulse 95bpm; Resp 18bpm; Pulse Ox 100% RA; Temp 97.6F; 68.95 kg; Height 5 ft. 6 iw in.; BMI: 24.5; Pain 7/10, Adult; iw
[2022-10-31] MEDS ORDERED: dexAMETHasone 10 MG/ML VIAL ONE (11:05)
[2022-10-31 11:47] VITALS: BP 135/99; TEMP 97.9; O2SAT 99
== END 2022-10-31 11:28 | disposition home or self-care (01) ==
LOC: ER 09:21
DX: J06.9 Acute upper respiratory infection, unspecified (principal); Z20.822 Contact with and (suspected) exposure to COVID-19
CPT/HCPCS: 36415; 87804; 87811; 96372; 99284; J1100

== ENCOUNTER 2023-02-05 06:25 | Emergency (ER) | payer SELFPAY ==
--- NOTE | 2023-02-05 07:48 | RAD REPORT ---
EXAM DESCRIPTION: RAD - Chest Pa And Lat (2 Views) - 02/05/2023 7:42 am CLINICAL HISTORY: Chest pain;Congestion;Cough Chest pain. COMPARISON: Chest Pa And Lat (2 Views) dated 05/20/2022; Chest Single View dated 09/22/2021; Chest Sin gle View dated 12/16/2020; Chest Single View dated 12/23/2019 FINDINGS: The lungs are clear. The heart is normal in size. No displaced fractures. IMPRESSION: No acute or concerning finding suspected.
--- NOTE | 2023-02-05 08:20 | ER ---
Nurse's Notes [facility] Name: Mira Trinidad Age: 37 yrs Sex: Female : 1985 Arrival Date: 02/05/2023 Time: 06:25 Bed IW1 Private MD: Diagnosis: Acute upper respiratory infection, unspecified;Cough Presentation: 02/05 06:47 Chief complaint: Patient states: cough, congestion for 2 weeks with right lower rib pf1 cage pain 6,onset Sunday. [facility]-luc[facility] and steriod, completed approximately 1 week ago. Patient stated has been exposed to Flu at week within the past week. Coronavirus screen: Vaccine status: Patient reports being unvaccinated. Client denies travel out of the [place] in the last 14 days. Client presents with at least one sign or symptom that may indicate coronavirus-19. Ebola Screen: Patient negative for fever greater than or equal to 101.5 degrees Fahrenheit, and additional compatible Ebola Virus Disease symptoms. Initial Sepsis Screen: Does the patient meet any 2 criteria? No. Patient's initial sepsis screen is negative. Does the patient have a suspected source of infection? No. Patient's initial sepsis screen is negative. Risk Assessment: Do you want to hurt yourself or someone else? Patient reports no desire to harm self or others. 06:47 Method Of Arrival: Ambulatory pf1 06:47 Acuity: MARK ANTHONY 3 pf1 Historical: - Allergies: 06:53 Augmentin; pf1 06:53 Haloperidol; pf1 06:53 Morphine; pf1 - PMHx: 06:53 Asthma; osteoarthritis; Bipolar disorder; pf1 - PSHx: 06:53 Cholecystectomy; Total abdominal hysterectomy; pf1 - Immunization history:: Adult Immunizations up to date, Client reports having NOT received the Covid vaccine. Last tetanus immunization: < 5 years ago Flu vaccine is not up to date. - Social history:: Smoking status: Patient/guardian denies using tobacco, Stopped _ months ago 1 Patient uses alcohol, occasionally. Patient/guardian denies using street drugs. Vital Signs: 06:47 BP 121 / 98; Pulse 72; Resp 16; Temp 97.8; Pulse Ox 97% on R/A; Weight 68.95 kg; Height pf1 5 ft. 6 in. ; Pain 08/19; 06:47 Body Mass Index 24.53 (68.95 kg, 167.64 cm) pf1 06:47 Pain Scale: Adult pf1 ED Course: 06:37 Patient arrived in ED. gm2 06:53 Triage completed. pf1 07:04 Emeka Shrestha DO is Attending Physician. ms3 07:44 Chest Pa And Lat (2 Views) XRAY In Process Unspecified. EDMS 08:20 Neo Francois DO is Referral Physician. ms3 Administered Medications: No medications were administered Outcome: 08:20 Discharge ordered by MD. ms3 08:35 Patient left the ED. hb Signatures: Dispatcher [employer] EDMS Susie Goodson RN RN Emeka Shrestha DO DO ms3 Danielle Anne RN RN pf1 Carmen Perez gm2
--- NOTE | 2023-02-05 08:21 | EDPHYS ---
Physician Documentation [facility] Name: Mira Trinidad Age: 37 yrs Sex: Female : 1985 Arrival Date: 02/05/2023 Time: 06:25 Bed IW1 Private MD: ED Physician Emeka Shrestha HPI: 02/05 07:19 This 37 yrs old Female presents to ER via Ambulatory with complaints of Chest ms3 Congestion, Cough, rib pain. 07:19 37-year-old female with past medical history of asthma, osteoporosis, bipolar disorder ms3 presents to the emergency department for cough, congestion, right chest pain, shortness of breath that began 4 days prior to arrival. Patient states her discomfort is a 6/10. Patient states the pain is worse with laying down or activity. Patient endorses fevers and chills. Patient denies any alleviating or inciting factors.. Historical: - Allergies: 06:53 Augmentin; pf1 06:53 Haloperidol; pf1 06:53 Morphine; pf1 - PMHx: 06:53 Asthma; osteoarthritis; Bipolar disorder; pf1 - PSHx: 06:53 Cholecystectomy; Total abdominal hysterectomy; pf1 - Immunization history:: Adult Immunizations up to date, Client reports having NOT received the Covid vaccine. Last tetanus immunization: < 5 years ago Flu vaccine is not up to date. - Social history:: Smoking status: Patient/guardian denies using tobacco, Stopped _ months ago 1 Patient uses alcohol, occasionally. Patient/guardian denies using street drugs. ROS: 07:19 Abdomen/GI: Negative for abdominal pain, nausea, vomiting, diarrhea, and constipation, ms3 MS/Extremity: Negative for injury and deformity, Skin: Negative for injury, rash, and discoloration, Neuro: Negative for headache, weakness, numbness, tingling. 07:19 Constitutional: Positive for chills, 07:19 Cardiovascular: Positive for chest pain, 07:19 Respiratory: Positive for cough, shortness of breath, 07:19 All other systems are negative, Exam: 07:19 Constitutional: This is a well developed, well nourished patient who is awake, alert, ms3 and in no acute distress. Head/Face: Normocephalic, atraumatic. Neck: Trachea midline, no cervical lymphadenopathy. Supple, full range of motion without nuchal rigidity, or vertebral point tenderness. No Meningismus. Chest/axilla: Normal chest wall appearance and motion. Nontender with no deformity. Cardiovascular: Regular rate and rhythm with a normal S1 and S2. No gallops, murmurs, or rubs. Normal PMI, no JVD. No pulse deficits. Respiratory: Lungs have equal breath sounds bilaterally, clear to auscultation and percussion. No rales, rhonchi or wheezes noted. No increased work of breathing, no retractions or nasal flaring. Abdomen/GI: Soft, non-tender, with normal bowel sounds. No distension or tympany. No guarding or rebound. No evidence of tenderness throughout. Skin: Warm, dry with normal turgor. Normal color with no rashes, no lesions, and no evidence of cellulitis. MS/ Extremity: Pulses equal, no cyanosis. Neurovascular intact. Full, normal range of motion. Vital Signs: 06:47 BP 121 / 98; Pulse 72; Resp 16; Temp 97.8; Pulse Ox 97% on R/A; Weight 68.95 kg; Height pf1 5 ft. 6 in. ; Pain 6/10; 06:47 Body Mass Index 24.53 (68.95 kg, 167.64 cm) pf1 06:47 Pain Scale: Adult pf1 MDM: 07:16 Patient medically screened. ms3 07:19 Differential Diagnosis: Bronchitis Influenza Upper Respiratory Infection Pneumonia ms3 Other PTX. 08:20 Data reviewed: vital signs, nurses notes, radiologic studies, plain films, and as a ms3 result, I will discharge patient. Care significantly affected by the following chronic conditions: Asthma. Care significantly affected by the following Social Determinants of Health: Poor access to healthcare and/or lack of insurance. Counseling: I had a detailed discussion with the patient and/or guardian regarding the historical points, exam findings, and any diagnostic results supporting the discharge/admit diagnosis, radiology results, the need for outpatient follow up, to return to the emergency department if symptoms worsen or persist or if there are any questions or concerns that arise at home. Special discussion: I discussed with the patient/guardian in detail that at this point there is no indication for admission to the hospital. It is understood, however, that if the symptoms persist or worsen the patient needs to return immediately for re-evaluation. ED course: Discussed x-ray findings with patient. Patient to follow-up with primary care physician in 2 to 3 days. Patient understands and agrees with plan. All questions were answered. Return precautions discussed include worsening symptoms, or any other concerns. 02/05 07:16 Order name: Chest Pa And Lat (2 Views) XRAY; Complete Time: 08:03 ms3 Administered Medications: No medications were administered Disposition Summary: 02/05/23 08:20 Discharge Ordered Notes: Location: Home ms3 Condition: Stable ms3 Diagnosis - Acute upper respiratory infection, unspecified ms3 - Cough ms3 Followup: ms3 - With: Neo Francois DO - When: 2 - 3 days - Reason: Recheck today's complaints Discharge Instructions: - Discharge Summary Sheet ms3 - Upper Respiratory Infection, Adult ms3 Forms: - Work release form hb - Medication Reconciliation Form ms3 - Thank You Letter ms3 - Antibiotic Education ms3 - Prescription Opioid Use ms3 - Patient Portal Instructions ms3 - Leadership Thank You Letter ms3 Prescriptions: - benzonatate 200 mg Oral capsule - take 1 capsule ORAL route 3 times per day as needed; 20 capsule; Refills: 0, ms3 Product Selection Permitted Signatures: Dispatcher [employer] EDMS Emeka Shrestha DO DO ms3 Danielle Anne, RN RN pf1
[2023-02-05 08:57] VITALS: BP 121/98; TEMP 97.8; O2SAT 97
== END 2023-02-05 08:35 | disposition home or self-care (01) ==
LOC: ER 06:25
DX: J06.9 Acute upper respiratory infection, unspecified (principal); R05.9 Cough, unspecified; Z88.0 Allergy status to penicillin; Z88.5 Allergy status to narcotic agent; Z88.8 Allergy status to other drugs, medicaments and biological substances
CPT/HCPCS: 71046; 99281

== ENCOUNTER → 2023-05-30 | Emergency (ER) | payer OTHER ==
[~2023-05-30] MED LIST: KETOROLAC 30 MG/ML INJ ONE; TRAMADOL HCL 50 MG TAB ONE
--- NOTE | 2023-05-30 15:38 | RAD REPORT ---
EXAM DESCRIPTION: RAD - Knee Left 3 View - 05/30/2023 3:21 pm CLINICAL HISTORY: Left knee pain FINDINGS: Mildly depressed lateral tibial plateau fracture extends inferiorly 5 centimeters. There is mild displacement of the inferior component of the tibial fracture. Lipohemarthrosis No dislocation
--- NOTE | 2023-05-30 16:21 | RAD REPORT ---
EXAM DESCRIPTION: CT - Knee Left Wo Con - 05/30/2023 3:59 pm CLINICAL HISTORY: Left knee pain and swelling status post fall COMPARISON: X-ray same date TECHNIQUE: Computed axial tomography left knee obtained All CT scans are performed using dose optimization technique as appropriate and may include automated exposure control or mA/KV adjustment according to patient size. FINDINGS: Comminuted lateral tibial plateau fracture depressed 8 millimeters. The fracture involves the tibial spines and lateral aspect the medial tibial plateau. Fragments are a vulsed. The fracture extends inferiorly 5 centimeter involving the posterior aspect of the tibia. Mild to mod erate displacement No dislocation Lipohemarthrosis IMPRESSION: Complex tibial fracture
--- NOTE | 2023-05-30 16:27 | EDPHYS ---
Physician Documentation [facility] Name: Mira Trinidad Age: 37 yrs Sex: Female : 1985 Arrival Date: 05/30/2023 Time: 14:39 Bed 11 Private MD: ED Physician Cecil Coronel HPI: 05/29 14:51 This 37 yrs old Female presents to ER via Unassigned with complaints of Knee Injury. kb 14:51 Patient is a 37-year-old female who was walking her dogs when the leash got wrapped kb around her foot causing her to trip and fall off the porch onto the left knee. Reports left knee pain and swelling. Denies any other injuries or trauma.. 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 - Social history:: Smoking status: unknown. ROS: 14:51 Constitutional: As per HPI kb Exam: 14:51 Constitutional: This is a well developed, well nourished patient who is awake, alert, kb and in no acute distress. Head/Face: Normocephalic, atraumatic. ENT: Moist Mucous membranes Cardiovascular: Regular rate Respiratory: Respirations even and unlabored. No increased work of breathing. Talking in full sentences Abdomen/GI: Soft, non-tender. No distention Skin: Warm, dry with normal turgor. Normal color. Neuro: Awake and alert, GCS 15, oriented to person, place, time, and situation. Moves all extremities. Normal gait. 14:51 Musculoskeletal/extremity: Extremities: grossly normal except: noted in the left knee: pain, swelling, tenderness, ROM: limited active range of motion due to pain, Circulation is intact in all extremities. Sensation intact. Vital Signs: 15:01 BP 126 / 99; Pulse 109; Resp 18; Temp 97.6(TE); Pulse Ox 100% on R/A; Weight 71.21 kg; ld1 Height 5 ft. 7 in. ; Pain 10/10; 15:41 BP 131 / 89; Pulse 101; Resp 15; Pulse Ox 100% on R/A; kd3 15:01 Body Mass Index 24.59 (71.21 kg, 170.18 cm) ld1 15:01 Pain Scale: Adult ld1 MDM: 14:45 Patient medically screened. kb 14:51 Differential diagnosis: dislocation, closed fracture, contusion. Data reviewed: vital kb signs, nurses notes. 16:24 Management of patient was discussed with the following: Weather Analyst: Discussed case with kelsy Modi at 1520. Recommends CT scan, immobilizer, NWB, and follow up. Counseling: I had a detailed discussion with the patient and/or guardian regarding the historical points, exam findings, and any diagnostic results supporting the discharge/admit diagnosis, radiology results, the need for outpatient follow up, a orthopedic surgeon, to return to the emergency department if symptoms worsen or persist or if there are any questions or concerns that arise at home. 16:27 Independent interpretation of the following test(s) in the Emergency Department X-Ray: kb My interpretation is tibia fracture on x-ray. 05/29 14:51 Order name: Knee Left 3 View XRAY; Complete Time: 15:47 kb 05/29 15:34 Order name: Knee Left Wo Con; Complete Time: 16:24 EDMS 05/29 14:51 Order name: Ice pack; Complete Time: 14:57 kb 05/29 16:26 Order name: Knee Immobilizer; Complete Time: 16:52 kb 05/29 16:26 Order name: Crutches; Complete Time: 16:52 kb Administered Medications: 14:57 Drug: traMADol PO 50 mg PO once Route: PO; kd3 16:30 Follow up: Response: No adverse reaction; Pain is decreased kd3 15:49 Drug: Ketorolac IM 30 mg IM once Route: IM; Site: right gluteus; kd3 16:30 Follow up: Response: No adverse reaction; Pain is decreased kd3 Disposition Summary: 05/30/23 16:26 Discharge Ordered Notes: Location: Home Condition: Stable Diagnosis - Proximal tibia fracture kb Followup: kb - With: Emergency Department - When: As needed - Reason: Worsening of condition Followup: kb - With: Private Physician - When: 2 - 3 days - Reason: Recheck today's complaints, Continuance of care, Re-evaluation by your physician Followup: kb - With: Fransisco Modi MD - When: 2 - 3 days - Reason: Recheck today's complaints Discharge Instructions: - Discharge Summary Sheet kb - Tibial Fracture, Adult, [id number] kb Forms: - Medication Reconciliation Form kb - Thank You Letter kb - Antibiotic Education kb - Prescription Opioid Use kb - Patient Portal Instructions kb - Leadership Thank You Letter kb - Work release form kd3 Prescriptions: - Diclofenac Sodium 75 mg Oral tablet, delayed release (enteric coated) - take 1 tablet ORAL route 2 times per day As needed; 30 tablet; Refills: 0, kb Product Selection Permitted - Tramadol 50 mg Oral Tablet - take 1 tablet ORAL route every 8 hours as needed; 12 tablet; Refills: 0, kb Product Selection Permitted Signatures: Dispatcher [employer] Astrid Gomez FNP-C FNP-Ckb Doucette, Kyli, RN RN kd3
--- NOTE | 2023-05-30 16:27 | ER ---
Nurse's Notes [facility] Name: Mira Trinidad Age: 37 yrs Sex: Female : 1985 Arrival Date: 05/30/2023 Time: 14:39 Bed 11 Private MD: Diagnosis: Proximal tibia fracture Presentation: 05/29 14:52 Chief complaint: Patient states: My dogs tripped me up with the leash and now my left kd3 knee hurts. 15:01 Coronavirus screen: Vaccine status: unknown. kd3 15:01 Acuity: MARK ANTHONY 4 kd3 15:01 Method Of Arrival: Wheelchair kd3 15:01 Coronavirus screen: At this time, the client does not indicate any symptoms associated ld1 with coronavirus-19. Ebola Screen: No symptoms or risks identified at this time. Initial Sepsis Screen: Does the patient meet any 2 criteria? No. Patient's initial sepsis screen is negative. Does the patient have a suspected source of infection? No. Patient's initial sepsis screen is negative. Risk Assessment: Do you want to hurt yourself or someone else? Patient reports no desire to harm self or others. Onset of symptoms was May 30, 2023. 15:01 Method Of Arrival: Wheelchair ld1 15:01 Acuity: MARK ANTHONY 4 ld1 Triage Assessment: 15:01 General: Appears uncomfortable, Behavior is calm, cooperative. Injury Description: pain.kd3 15:01 General: Appears in no apparent distress. uncomfortable, Behavior is cooperative, ld1 anxious. Pain: Complains of pain in left leg Pain does not radiate. Pain currently is 10 out of 10 on a pain scale. Quality of pain is described as throbbing, Pain began 30 min ago. Is continuous. EENT: No signs and/or symptoms were reported regarding the EENT system. Neuro: Level of Consciousness is awake, alert, obeys commands, Oriented to person, place, time, situation. Cardiovascular: Capillary refill < 3 seconds Patient's skin is warm and dry. Respiratory: Airway is patent Respiratory effort is even, unlabored. GI: Abdomen is round non-distended. : No signs and/or symptoms were reported regarding the genitourinary system. Derm: No signs and/or symptoms reported regarding the dermatologic system. Musculoskeletal: No signs and/or symptoms reported regarding the musculoskeletal system. 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 - Social history:: Smoking status: unknown. Screenin:00 [facility] ED Fall Risk Assessment (Adult) History of falling in the last 3 months, kd3 including since admission No falls in past 3 months (0 pts) Confusion or Disorientation No (0 pts) Intoxicated or Sedated No (0 pts) Impaired Gait Yes (1 pt) Mobility Assist Device Used No (0 pt) Altered Elimination No (0 pt) Score/Fall Risk Level 0 - 2 = Low Risk Oriented to surroundings. Abuse screen: Denies threats or abuse. Denies injuries from another. Nutritional screening: No deficits noted. Tuberculosis screening: No symptoms or risk factors identified. Assessment: 15:00 General: Appears in no apparent distress. Behavior is calm, cooperative. Pain: kd3 Complains of pain in left knee. Musculoskeletal: Circulation, motion, and sensation intact. 15:00 Neuro: Level of Consciousness is awake, alert, obeys commands, Oriented to person, kd3 place, time, situation. Respiratory: Airway is patent Trachea midline Respiratory effort is even, unlabored, Respiratory pattern is regular, symmetrical. Vital Signs: 15:01 BP 126 / 99; Pulse 109; Resp 18; Temp 97.6(TE); Pulse Ox 100% on R/A; Weight 71.21 kg; ld1 Height 5 ft. 7 in. ; Pain 10/10; 15:41 BP 131 / 89; Pulse 101; Resp 15; Pulse Ox 100% on R/A; kd3 15:01 Body Mass Index 24.59 (71.21 kg, 170.18 cm) ld1 15:01 Pain Scale: Adult ld1 ED Course: 14:44 Patient arrived in ED. mg5 14:44 Astrid Dempsey FNP-C is [facility]. kb 14:45 Cecil Coronel MD is Attending Physician. kb 15:00 Nel Leung, LUIS ANTONIO is Primary Nurse. kd3 15:01 Triage completed. kd3 15:01 Arm band placed on right wrist. kd3 15:02 Patient has correct armband on for positive identification. Provided Education on: Ed kd3 process. . 15:02 No provider procedures requiring assistance completed. Patient did not have IV access kd3 during this emergency room visit. 15:23 Knee Left 3 View XRAY In Process Unspecified. EDMS 16:01 Knee Left Wo Con In Process Unspecified. EDMS 16:26 Fransisco Modi MD is Referral Physician. kb Administered Medications: 14:57 Drug: traMADol PO 50 mg PO once Route: PO; kd3 16:30 Follow up: Response: No adverse reaction; Pain is decreased kd3 15:49 Drug: Ketorolac IM 30 mg IM once Route: IM; Site: right gluteus; kd3 16:30 Follow up: Response: No adverse reaction; Pain is decreased kd3 Medication: 15:00 VIS not applicable for this client. kd3 Outcome: 16:26 Discharge ordered by . kb 16:52 Condition: stable kd3 16:52 Discharge instructions given to patient, Instructed on discharge instructions, kd3 Demonstrated understanding of instructions, follow-up care, medications, Prescriptions given X 2, 16:53 Discharged to home via wheelchair, with crutches, kd3 16:53 Patient left the ED. kd3 Signatures: Dispatcher [employer] Astrid Gomez, JERRI JIMENEZP-Shirley Horton RN RN ld1 Nel Leung RN RN kd3 Sylvia Griffin mg5
[2023-05-30 17:16] VITALS: BP 131/89; TEMP 97.6; O2SAT 100
== END ==
LOC: ER 14:39
DX: S82.102A Unspecified fracture of upper end of left tibia, initial encounter for closed fracture (principal); W01.0XXA Fall on same level from slipping, tripping and stumbling without subsequent striking against object, initial encounter; Z88.1 Allergy status to other antibiotic agents; Z88.5 Allergy status to narcotic agent
CPT/HCPCS: 73700

== ENCOUNTER 2023-08-10 18:12 | Emergency (ER) | payer OTHER ==
--- OUTSIDE RECORDS SUMMARY | 2023-08-10 18:17 | XMS REPORT | Continuity of Care Document ---
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 Role Phone TAYLA_Amy Attending Clinician UnavailChaitanya Uriarte Attending Clinician Unavailable Vince Admitting Clinician Chaitanya Burnham Admitting Clinician Unavailable Payers Payer Name Policy Type Policy Number Effective Date Expirati on Date Source [facility] [id number] 2022 00:00:00 Problems Condition Name Condition Details Condition Category Status Onset Date Resolution Date Last Treatment Date Treating Clinician Comments Source Closed bicondylar fracture of plateau of left tibia Closed Bicondylar Fracture of Plateau of Left Tibia Problem Active 05-31 00:00: 00 [facility] Allergies, Adverse Reactions, Alerts Allergy Name Allergy Type Status Severity Reaction(s) Onset Date Inactive Date Treating Clinician Comments Source haloperi dol DA Active SV LOCKED JAW 06-11 00:00: 00 [facility] morphine DA Active SV SEVERE NAUSEA AND VOMITING; RASH 06-11 00:00: 00 [facility] clavulan ic acid DA Active SV GI UPSET - 00:00: 00 [facility] amoxicil brett DA Active SV GI UPSET 06-11 00:00: 00 [facility] hal[place]i dol DA Active SV LOCKED JAW 06-04 00:00: 00 [facility] morphine DA Active SV SEVERE NAUSEA AND VOMITING; RASH 06-04 00:00: 00 [facility] clavulan ic acid DA Active SV GI UPSET 06-04 00:00: 00 [facility] amoxicil brett DA Active SV GI UPSET 06-04 00:00: 00 [facility] Social History Smoking Status Start Date Stop Date Source Heavy Tobacco Smoker [place] [facility] Medications Ordered Medication Name Filled Medication Name Start Date Stop Date Current Medication? Ordering Clinician Indication Dosage Frequency Signature (SIG) Comments Components Source albuterol sulfate HFA 90 mcg/actuati on aerosol inhaler INHALE ONE (1) PUFF(S) BY MOUTH EVERY 4 TO 6 HOURS NEEDED. albuterol sulfate HFA 90 mcg/actuati on aerosol inhaler INHALE ONE (1) PUFF(S) BY MOUTH EVERY 4 TO 6 HOURS NEEDED. No albuterol sulfate HFA 90 mcg/actuat ion aerosol inhaler INHALE ONE (1) PUFF(S) BY MOUTH EVERY 4 TO 6 HOURS NEEDED. [facility] azithromyci n 250 mg tablet TAKE 2 TABLETS BY MOUTH ON DAY 1, THEN 1 TABLET DAILY ON DAYS 2 TO 5. azithromyci n 250 mg tablet TAKE 2 TABLETS BY MOUTH ON DAY 1, THEN 1 TABLET DAILY ON DAYS 2 TO 5. No azithromyc in 250 mg tablet TAKE 2 TABLETS BY MOUTH ON DAY 1, THEN 1 TABLET DAILY ON DAYS 2 TO 5. [facility] diclofenac sodium 75 mg tablet,sherrie yed release TAKE 1 TABLET BY MOUTH TWICE A DAY NEEDED diclofenac sodium 75 mg tablet,sherrie yed release TAKE 1 TABLET BY MOUTH TWICE A DAY NEEDED No diclofenac sodium 75 mg tablet,del ayed release TAKE 1 TABLET BY MOUTH TWICE A DAY NEEDED [facility] doxycycline hyclate 100 mg tablet TAKE ONE (1) TABLET(S) BY MOUTH TWICE A DAY FOR SEVEN DAYS. doxycycline hyclate 100 mg tablet TAKE ONE (1) TABLET(S) BY MOUTH TWICE A DAY FOR SEVEN DAYS. No doxycyclin e hyclate 100 mg tablet TAKE ONE (1) TABLET(S) BY MOUTH TWICE A DAY FOR SEVEN DAYS. [facility] hydrocodone 5 mg-acetamin ophen 325 mg tablet TAKE ONE TO TWO TABLETS BY MOUTH EVERY 6 HOURS NEEDED FOR PAIN hydrocodone 5 mg-acetamin ophen 325 mg tablet TAKE ONE TO TWO TABLETS BY MOUTH EVERY 6 HOURS NEEDED FOR PAIN No hydrocodon e 5 mg-acetami nophen 325 mg tablet TAKE ONE TO TWO TABLETS BY MOUTH EVERY 6 HOURS NEEDED FOR PAIN [facility] ibuprofen 800 mg tablet TAKE ONE (1) TABLET(S) BY MOUTH EVERY EIGHT HOURS NEEDED FOR PAIN. ibuprofen 800 mg tablet TAKE ONE (1) TABLET(S) BY MOUTH EVERY EIGHT HOURS NEEDED FOR PAIN. No ibuprofen 800 mg tablet TAKE ONE (1) TABLET(S) BY MOUTH EVERY EIGHT HOURS NEEDED FOR PAIN. [facility] methocarbam ol 500 mg tablet TAKE 1 TABLET BY MOUTH EVERY 6 TO 8 HOURS NEEDED methocarbam ol 500 mg tablet TAKE 1 TABLET BY MOUTH EVERY 6 TO 8 HOURS NEEDED No methocarba mol 500 mg tablet TAKE 1 TABLET BY MOUTH EVERY 6 TO 8 HOURS NEEDED [facility] prednisone 20 mg tablet TAKE TWO (2) TABLET(S) BY MOUTH DAILY FOR 5 DAYS, THEN 1 TABLET DAILY FOR 2 DAYS. prednisone 20 mg tablet TAKE TWO (2) TABLET(S) BY MOUTH DAILY FOR 5 DAYS, THEN 1 TABLET DAILY FOR 2 DAYS. No prednisone 20 mg tablet TAKE TWO (2) TABLET(S) BY MOUTH DAILY FOR 5 DAYS, THEN 1 TABLET DAILY FOR 2 DAYS. [facility] tramadol 50 mg tablet TAKE 1 TABLET BY MOUTH EVERY 8 HOURS NEEDED tramadol 50 mg tablet TAKE 1 TABLET BY MOUTH EVERY 8 HOURS NEEDED No tramadol 50 mg tablet TAKE 1 TABLET BY MOUTH EVERY 8 HOURS NEEDED [facility] acetaminoph en 300 mg-codeine 30 mg tablet Take 1-2 tab(s) by oral route every 6 hours as needed for pain acetaminoph en 300 mg-codeine 30 mg tablet Take 1-2 tab(s) by oral route every 6 hours as needed for pain No acetaminop hen 300 mg-codeine 30 mg tablet Take 1-2 tab(s) by oral route every 6 hours as needed for pain [facility] Procedures Procedure Date / Time Performed Performing Clinicia n Source XR, knee, 1 or 2 view 2023-07-18 00:00:00 [facility] XR, knee, 1 or 2 view 2023-07-04 00:00:00 [facility] Encounters Start Date/Time End Date/Time Encounter Type Admission Type Attending [facility] Care Facility Care Department Encounter ID Source 2023-07-18 00:00:00 2023-07-18 00:00:00 Chaitanya Chapin MD: [address] [place] [address] , Ph. [phone] [facility] [place] [facility] [place] [facility] [address] [place] [id number] [facility] 2023-07-04 00:00:00 2023-07-04 00:00:00 Chaitanya Chapin MD: [address] [place] [address] , Ph. [phone] [facility] [place] [facility] [place] [facility] [address] [phone] [facility] 2023-06-20 00:00:00 2023-06-20 00:00:00 Chaitanya Chapin MD: [address] [place] [address] , Ph. [phone] [facility] [place] [facility] [place] [facility] [address] [place] [phone] [facility] 2023-06-19 00:00:00 2023-06-19 00:00:00 Outpatient FOG_Dari _Chaitanya_ [facility] [id number] [facility] 2023-06-12 10:34:00 2023-06-14 18:52:00 Inpatient Chaitanya Lowe [facility] [id number] [facility] 2023-06-12 00:00:00 2023-06-12 00:00:00 Chaitanya Chapin MD: [address] [place] [address] , Ph. [phone] [facility] [place] [facility] [place] [facility] [address] [place] [address] [id number] [facility] 2023-06-11 00:00:00 2023-06-11 00:00:00 Outpatient [facility]_Dari [place] [id number] [facility] 2023-06-01 00:00:00 2023-06-01 00:00:00 Chaitanya Chapin MD: [address] [place] [id number] , Ph. [phone] [facility] [place] [facility] [place] [phone] [facility] 2023-05-31 00:00:00 2023-05-31 00:00:00 Outpatient FOG_Dari _[place] [id number] [facility] Results Test Description Test Time Test Comments Results Result Co mments Source CBC W/AUTO [id number] 05:58:00* Test Item Value Reference Range Interpretation Comme nts WHITE BLOOD CELL (test code = WBC) 14.3 K/mm3 5.5-11.0 H RED BLOOD CELL (test code = RBC) 4.20 M/mm3 4.2-5.4 N HEMOGLOBIN (test code = HGB) 12.1 g/dL 12-16 N HEMATOCRIT (test code = HCT) 35.6 % 37-47 L MEAN CELL VOLUME (test code = MCV) 85 fL 80-98 N MEAN CELL HGB (test code = MCH) 28.8 pg 27-34 N MEAN CELL HGB CONCENTRATION (test code = MCHC) 34.0 g/dL 30.8-34.1 N RED CELL DISTRIBUTION WIDTH (test code = RDW) 13.5 % 11-16 N PLT (test code = PLT) 342 K/mm3 130-400 N MEAN PLATELET VOLUME (test c ode = MPV) 11.5 fL 8.9-12.1 N NEUTROPHIL % (test code = NT%) 79.7 % 45-70 H LYMPHOCYTE % (test code = LY%) 12.2 % 20-40 L MONOCYTE % (test code = MO%) 7.4 % 3-10 N EOSINOPHIL % (test code = EO%) 0.1 % 1-5 L BASOPHIL % (test code = BA%) 0.2 % 0.0-1.1 N NEUTROPHIL # (test code = NT#) 11.36 K/mm3 2.00-7.50 H LYMPHOCYTE # (test code = LY#) 1.74 K/mm3 1.50-4.00 N MONOCYTE # (test code = MO#) 1.06 K/mm3 0.2-0.8 H EOSINOPHIL # (test code = EO#) 0.01 K/mm3 0.04-0.4 L BASOPHIL # (test code = BA#) 0.03 K/mm3 0.02-0.10 N MANUAL DIFF REQUIRED (test c ode = MDIFF) NO MANUAL DIFF NUCLEATED RED BLOOD CELL (te st code = NRBC) 0 % 0-0 N CBC W Auto Differential panel - [id number] 04:00:00* Test Item Value Reference Range Interpretation Comme nts white blood cell (test code = white blood cell) 14.3 K/mm3 5.5-11.0 H red blood cell (test code = red blood cell) 4.20 M/mm3 4.2-5.4 hemoglobin (test code = hemoglobin) 12.1 g/dL 12-16 hematocrit (test code = hematocrit) 35.6 % 37-47 L mean cell volume (test code = mean cell volume) 85 fL 80-98 mean cell HGB (test code = m jaz cell HGB) 28.8 pg 27-34 mean cell HGB concentration (test code = mean cell HGB concentration) 34.0 g/dL 30.8-34.1 red cell distribution width (test code = red cell distribution width) 13.5 % 11-16 plt (test code = plt) 342 K/mm3 130-400 mean platelet volume (test c ode = mean platelet volume) 11.5 fL 8.9-12.1 neutrophil % (test code = neutrophil %) 79.7 % 45-70 H lymphocyte % (test code = lymphocyte %) 12.2 % 20-40 L monocyte % (test code = mono cyte %) 7.4 % 3-10 eosinophil % (test code = eosinophil %) 0.1 % 1-5 L basophil % (test code = baso nicki %) 0.2 % 0.0-1.1 neutrophil # (test code = neutrophil #) 11.36 K/mm3 2.00-7.50 H lymphocyte # (test code = lymphocyte #) 1.74 K/mm3 1.50-4.00 monocyte # (test code = mono cyte #) 1.06 K/mm3 0.2-0.8 H eosinophil # (test code = eosinophil #) 0.01 K/mm3 0.04-0.4 L basophil # (test code = baso nicki #) 0.03 K/mm3 0.02-0.10 manual diff required (test c ode = manual diff required) no manual diff nucleated red blood cell (te st code = nucleated red blood cell) 0 % 0-0 performing lab: (test code = performing lab:) [facility] metabolic [id number] 04:00:00* Test Item Value Reference Range Interpretation Comme nts sodium (test code = sodium) 137 mmol/L 136-145 potassium (test code = potassium) 4.5 mmol/L 3.5-5.1 chloride (test code = chloride) 100.0 mmol/L 98-107 carbon dioxide (test code = carbon dioxide) 27.2 mmol/L 21-32 glucose (test code = glucose) 107 mg/dL 74-106 H blood urea nitrogen (test co de = blood urea nitrogen) 11 mg/dL 7-18 glomerular filtration rate ( test code = glomerular filtration rate) 88.1 >60 creatinine (test code = creatinine) 0.86 mg/dL 0.55-1.02 calcium (test code = calcium) 8.6 mg/dL 8.5-10.1 performing lab: (test code = performing lab:) [facility] W Auto Differential panel - [id number] 04:00:00* Test Item Value Reference Range Interpretation Comme nts white blood cell (test code = white blood cell) 14.3 K/mm3 5.5-11.0 H red blood cell (test code = red blood cell) 4.20 M/mm3 4.2-5.4 hemoglobin (test code = hemoglobin) 12.1 g/dL 12-16 hematocrit (test code = hematocrit) 35.6 % 37-47 L mean cell volume (test code = mean cell volume) 85 fL 80-98 mean cell HGB (test code = m jaz cell HGB) 28.8 pg 27-34 mean cell HGB concentration (test code = mean cell HGB concentration) 34.0 g/dL 30.8-34.1 red cell distribution width (test code = red cell distribution width) 13.5 % 11-16 plt (test code = plt) 342 K/mm3 130-400 mean platelet volume (test c ode = mean platelet volume) 11.5 fL 8.9-12.1 neutrophil % (test code = neutrophil %) 79.7 % 45-70 H lymphocyte % (test code = lymphocyte %) 12.2 % 20-40 L monocyte % (test code = mono cyte %) 7.4 % 3-10 eosinophil % (test code = eosinophil %) 0.1 % 1-5 L basophil % (test code = baso nicki %) 0.2 % 0.0-1.1 neutrophil # (test code = neutrophil #) 11.36 K/mm3 2.00-7.50 H lymphocyte # (test code = lymphocyte #) 1.74 K/mm3 1.50-4.00 monocyte # (test code = mono cyte #) 1.06 K/mm3 0.2-0.8 H eosinophil # (test code = eosinophil #) 0.01 K/mm3 0.04-0.4 L basophil # (test code = baso nicki #) 0.03 K/mm3 0.02-0.10 manual diff required (test c ode = manual diff required) no manual diff nucleated red blood cell (te st code = nucleated red blood cell) 0 % 0-0 performing lab: (test code = performing lab:) [facility] [id number] 04:00:00* Test Item Value Reference Range Interpretation Comme nts sodium (test code = sodium) 137 mmol/L 136-145 potassium (test code = potassium) 4.5 mmol/L 3.5-5.1 chloride (test code = chloride) 100.0 mmol/L 98-107 carbon dioxide (test code = carbon dioxide) 27.2 mmol/L 21-32 glucose (test code = glucose) 107 mg/dL 74-106 H blood urea nitrogen (test co de = blood urea nitrogen) 11 mg/dL 7-18 glomerular filtration rate ( test code = glomerular filtration rate) 88.1 >60 creatinine (test code = creatinine) 0.86 mg/dL 0.55-1.02 calcium (test code = calcium) 8.6 mg/dL 8.5-10.1 performing lab: (test code = performing lab:) [facility] W Auto Differential panel - [id number] 04:00:00* Test Item Value Reference Range Interpretation Comme nts white blood cell (test code = white blood cell) 14.3 K/mm3 5.5-11.0 H red blood cell (test code = red blood cell) 4.20 M/mm3 4.2-5.4 hemoglobin (test code = hemoglobin) 12.1 g/dL 12-16 hematocrit (test code = hematocrit) 35.6 % 37-47 L mean cell volume (test code = mean cell volume) 85 fL 80-98 mean cell HGB (test code = m jaz cell HGB) 28.8 pg 27-34 mean cell HGB concentration (test code = mean cell HGB concentration) 34.0 g/dL 30.8-34.1 red cell distribution width (test code = red cell distribution width) 13.5 % 11-16 plt (test code = plt) 342 K/mm3 130-400 mean platelet volume (test c ode = mean platelet volume) 11.5 fL 8.9-12.1 neutrophil % (test code = neutrophil %) 79.7 % 45-70 H lymphocyte % (test code = lymphocyte %) 12.2 % 20-40 L monocyte % (test code = mono cyte %) 7.4 % 3-10 eosinophil % (test code = eosinophil %) 0.1 % 1-5 L basophil % (test code = baso nicki %) 0.2 % 0.0-1.1 neutrophil # (test code = neutrophil #) 11.36 K/mm3 2.00-7.50 H lymphocyte # (test code = lymphocyte #) 1.74 K/mm3 1.50-4.00 monocyte # (test code = mono cyte #) 1.06 K/mm3 0.2-0.8 H eosinophil # (test code = eosinophil #) 0.01 K/mm3 0.04-0.4 L basophil # (test code = baso nicki #) 0.03 K/mm3 0.02-0.10 manual diff required (test c ode = manual diff required) no manual diff nucleated red blood cell (te st code = nucleated red blood cell) 0 % 0-0 performing lab: (test code = performing [facility] [id number] 04:00:00* Test Item Value Reference Range Interpretation Comme nts sodium (test code = sodium) 137 mmol/L 136-145 potassium (test code = potassium) 4.5 mmol/L 3.5-5.1 chloride (test code = chloride) 100.0 mmol/L 98-107 carbon dioxide (test code = carbon dioxide) 27.2 mmol/L 21-32 glucose (test code = glucose) 107 mg/dL 74-106 H blood urea nitrogen (test co de = blood urea nitrogen) 11 mg/dL 7-18 glomerular filtration rate ( test code = glomerular filtration rate) 88.1 >60 creatinine (test code = creatinine) 0.86 mg/dL 0.55-1.02 calcium (test code = calcium) 8.6 mg/dL 8.5-10.1 performing lab: (test code = performing lab:) [facility] [id number] 17:13:00* Test Item Value Reference Range Interpretation Comme nts HCG SERUM (test code = HCG) 9.0 See_Comment INTERPRETATION:V ALUES BETWEEN 15-20 milliInternational units/mL NEED TO BERETESTED WITHIN 48 HOURS. All units for these ranges are in milliInternationalunits/mL0-1 WK AFTER CONCEPTION 0-50 1-2 WKS AFTER CONCEPTION 40-3002-3 WKS AFTER CONCEPTION 100-1,0003-4 WKS AFTER CONCEPTION 500-6,0001-2 MONTHS AFTER CONCEPTION 5,000-200,0002-3 MONTHS AFTER CONCEPTION 10,000-100,0002ND TRIMESTER 3,000-50,0003RD TRIMESTER 1,000-50,000 SPECIMENS WITH AN HCG LEVEL FROM 0-6 milliInternationalunits/mL SHOULD BE CONSIDERED NEGATIVEUnit of measure: amanda-International Units/mL [Automated message] The system which generated this result transmitted reference range: (). The reference range was not used to interpret this result as normal/abnormal. HCG [id number] 17:13:00* Test Item Value Reference Range Interpretation Comme nts HCG SERUM (test code = HCG) 9 INTERPRETATION:V ALUES BETWEEN 15-20 milliInternational units/mL NEED TO BERETESTED WITHIN 48 HOURS. All units for these ranges are in milliInternationalunits/mL0-1 WK AFTER CONCEPTION 0-50 1-2 WKS AFTER CONCEPTION 40-3002-3 WKS AFTER CONCEPTION 100-1,0003-4 WKS AFTER CONCEPTION 500-6,0001-2 MONTHS AFTER CONCEPTION 5,000-200,0002-3 MONTHS AFTER CONCEPTION 10,000-100,0002ND TRIMESTER 3,000-50,0003RD TRIMESTER 1,000-50,000 SPECIMENS WITH AN HCG LEVEL FROM 0-6 milliInternationalunits/mL SHOULD BE CONSIDERED NEGATIVE C REACTIVE [id number] 22:26:00* Test Item Value Reference Range Interpretation Comme nts C REACTIVE PROTEIN (test cod e = CRP) 2.21 mg/dL < 0.3 H ACUTE HEPATITIS [id number] 22:26:00* Test Item Value Reference Range Interpretation Comme nts AB HEPATITIS A IGM (test cod e = HAVMAB) NONREACTIVE NONREACTIVE AG HEPATITIS B SURFACE (test code = HBSAG) NONREACTIVE NONREACTIVE AB HEPATITIS B CORE IGM (anushka t code = HBCMAB) NONREACTIVE NONREACTIVE AB HEPATITIS C (test code = HCVAB) NONREACTIVE NONREACTIVE SIGNAL TO CUTOFF (test code = CUTOFF) 0.29 <0.80 AB HIV 22:26:00* Test Item Value Reference Range Interpretation Comme nts AB HIV 1 (test code = HIV1AB) NONREACTIVE NONREACTIVE DONE AT: [facility] [address] [id number] by [employer] 4th Gen HIV Ag/Ab Combo Screen ACUTE HEPATITIS [id number] 22:25:00* Test Item Value Reference Range Interpretation Comme nts AB HEPATITIS A IGM (test cod e = HAVMAB) NONREACTIVE NONREACTIVE AG HEPATITIS B SURFACE (test code = HBSAG) NONREACTIVE NONREACTIVE AB HEPATITIS B CORE IGM (anushka t code = HBCMAB) NONREACTIVE NONREACTIVE AB HEPATITIS C (test code = HCVAB) NONREACTIVE NONREACTIVE SIGNAL TO CUTOFF (test code = CUTOFF) 0.29 <0.80 N AB HIV 1 22:25:00* Test Item Value Reference Range Interpretation Comme nts AB HIV 1 2 (test code = MOG76NE) NONREACTIVE NONREACTIVE Done by [employer] 4th Gen HIV Ag/Ab Combo Screen PROTHROMBIN [id number] 16:43:00* Test Item Value Reference Range Interpretation Comme nts PROTHROMBIN TIME PATIENT (test code = PTP) 11.7 secs 9.4-12.5 N INTERNATIONAL NORMAL RATIO (test code = INR) 1.09 <2.0 RECOMMENDED THER APEUTIC RANGE FOR ORAL ANTICOAGULANTTREATMENT: CONDITION INRProphylaxis of venous thrombosis in 2.0 - 3.0 high-risk medical or surgical patientsTreatment of venous thrombosis 2.0 - 3.0Prevention of embolism 2.0 - 3.0Prevention of recurrent embolism, or 3.0 - 4.5 patients with mechanical prosthetic intravascular valves IS PATIENT ON ANTICOAGULANTS ? SDas Lab been notified if Patient is on Heparin Drip? NOTHROMBOPLASTIN TIME [id number] 16:43:00* Test Item Value Reference Range Interpretation Comme nts PTT ACTIVATED (test code = APTT) 31.3 secs 25.1-36.5 N IS PATIENT ON ANTICOAGULANTS ? NHas Lab been notified if Patient is on Heparin Drip? NOSED [id number] 16:36:00* Test Item Value Reference Range Interpretation Comme nts SED RATE (test code = SEDW) 36 mm/hr 0-20 H HCG SERUM [id number] 16:00:00* Test Item Value Reference Range Interpretation Comme nts HCG SERUM QUAL (test code = HCGQL) POSITIVE NEGATIVE A Reported to SHELBY Morley AT DR CHAPIN'S OFFICEby Gaby, on 06/05/23 at 1529. COMPREHENSIVE METABOLIC [id number] 16:00:00* Test Item Value Reference Range Interpretation Comme nts SODIUM (test code = NA) 137 mmol/L 136-145 N POTASSIUM (test code = K) 4.0 mmol/L 3.5-5.1 N CHLORIDE (test code = CL) 97.0 mmol/L 98-107 L CARBON DIOXIDE (test code = CO2) 24.8 mmol/L 21-32 N GLUCOSE (test code = GLU) 89 mg/dL 74-106 N BLOOD UREA NITROGEN (test code = BUN) 8 mg/dL 7-18 N GLOMERULAR FILTRATION RATE (test code = GFR) 93.3 >60 The Glomerular Filtration Rate is a calculated parameterbased on serum Creatinine, patient age and sex. GFR valuesless than 60 mL/min/1.73 square meters are indicative ofChronic Kidney Disease. Values less than 15 mL/min/1.73square meters indicate Kidney failure. The calculation forGFR is based on the CKD-EPI (2020) calculation. This formulais race indifferent and is the recommended formula for GFRby the National Kidney Foundation for Adults.The GFR will not calculate if the sex is unknown or if thepatient's age is <18 years. CREATININE (test code = CREAT) 0.82 mg/dL 0.55-1.02 N TOTAL PROTEIN (test code = PROT) 7.8 g/dL 6.4-8.2 N ALBUMIN (test code = ALB) 4.2 g/dL 3.4-5.0 N GLOBULIN (test code = GLOB) 3.6 g/dL 2.2-4.2 N CALCIUM (test code = CA) 9.1 mg/dL 8.5-10.1 N BILIRUBIN TOTAL (test code = BILT) 0.50 mg/dL 0.2-1.00 N SGOT/AST (test code = AST) 25.0 U/L 15-37 N SGPT/ALT (test code = ALT) 33.0 U/L 14-59 N ALKALINE PHOSPHATASE TOTAL (test code = ALKP) 73 U/L 46-116 N ALBUMIN/GLOBULIN RATIO (test code = A/G) 1.2 0.7-2.0 N CBC W/AUTO [id number] 15:05:00* Test Item Value Reference Range Interpretation Comme nts WHITE BLOOD CELL (test code = WBC) 12.8 K/mm3 5.5-11.0 H RED BLOOD CELL (test code = RBC) 4.31 M/mm3 4.2-5.4 N HEMOGLOBIN (test code = HGB) 12.5 g/dL 12-16 N HEMATOCRIT (test code = HCT) 36.0 % 37-47 L MEAN CELL VOLUME (test code = MCV) 84 fL 80-98 N MEAN CELL HGB (test code = MCH) 29.0 pg 27-34 N MEAN CELL HGB CONCENTRATION (test code = MCHC) 34.7 g/dL 30.8-34.1 H RED CELL DISTRIBUTION WIDTH (test code = RDW) 13.2 % 11-16 N PLT (test code = PLT) 355 K/mm3 130-400 N MEAN PLATELET VOLUME (test c ode = MPV) 11.1 fL 8.9-12.1 N NEUTROPHIL % (test code = NT%) 62.6 % 45-70 N LYMPHOCYTE % (test code = LY%) 27.4 % 20-40 N MONOCYTE % (test code = MO%) 7.8 % 3-10 N EOSINOPHIL % (test code = EO%) 1.2 % 1-5 N BASOPHIL % (test code = BA%) 0.7 % 0.0-1.1 N NEUTROPHIL # (test code = NT#) 8.00 K/mm3 2.00-7.50 H LYMPHOCYTE # (test code = LY#) 3.49 K/mm3 1.50-4.00 N MONOCYTE # (test code = MO#) 0.99 K/mm3 0.2-0.8 H EOSINOPHIL # (test code = EO#) 0.15 K/mm3 0.04-0.4 N BASOPHIL # (test code = BA#) 0.09 K/mm3 0.02-0.10 N MANUAL DIFF REQUIRED (test c ode = MDIFF) NO MANUAL DIFF NUCLEATED RED BLOOD CELL (te st code = NRBC) 0 % 0-0 N CBC W Auto Differential panel - [id number] 14:30:00* Test Item Value Reference Range Interpretation Comme nts white blood cell (test code = white blood cell) 12.8 K/mm3 5.5-11.0 H red blood cell (test code = red blood cell) 4.31 M/mm3 4.2-5.4 hemoglobin (test code = hemoglobin) 12.5 g/dL 12-16 hematocrit (test code = hematocrit) 36.0 % 37-47 L mean cell volume (test code = mean cell volume) 84 fL 80-98 mean cell HGB (test code = m jaz cell HGB) 29.0 pg 27-34 mean cell HGB concentration (test code = mean cell HGB concentration) 34.7 g/dL 30.8-34.1 H red cell distribution width (test code = red cell distribution width) 13.2 % 11-16 plt (test code = plt) 355 K/mm3 130-400 mean platelet volume (test c ode = mean platelet volume) 11.1 fL 8.9-12.1 neutrophil % (test code = neutrophil %) 62.6 % 45-70 lymphocyte % (test code = lymphocyte %) 27.4 % 20-40 monocyte % (test code = mono cyte %) 7.8 % 3-10 eosinophil % (test code = eosinophil %) 1.2 % 1-5 basophil % (test code = baso nicki %) 0.7 % 0.0-1.1 neutrophil # (test code = neutrophil #) 8.00 K/mm3 2.00-7.50 H lymphocyte # (test code = lymphocyte #) 3.49 K/mm3 1.50-4.00 monocyte # (test code = mono cyte #) 0.99 K/mm3 0.2-0.8 H eosinophil # (test code = eosinophil #) 0.15 K/mm3 0.04-0.4 basophil # (test code = baso nicki #) 0.09 K/mm3 0.02-0.10 manual diff required (test c ode = manual diff required) no manual diff nucleated red blood cell (te st code = nucleated red blood cell) 0 % 0-0 performing lab: (test code = performing lab:) [facility]Com[facility] 2000 panel - Serum or Tgrucd4043-40-89 14:30:00* Test Item Value Reference Range Interpretation Comme nts sodium (test code = sodium) 137 mmol/L 136-145 potassium (test code = potassium) 4.0 mmol/L 3.5-5.1 chloride (test code = chloride) 97.0 mmol/L 98-107 L carbon dioxide (test code = carbon dioxide) 24.8 mmol/L 21-32 glucose (test code = glucose) 89 mg/dL 74-106 blood urea nitrogen (test co de = blood urea nitrogen) 8 mg/dL 7-18 glomerular filtration rate ( test code = glomerular filtration rate) 93.3 >60 creatinine (test code = creatinine) 0.82 mg/dL 0.55-1.02 total protein (test code = t otal protein) 7.8 g/dL 6.4-8.2 albumin (test code = albumin) 4.2 g/dL 3.4-5.0 globulin (test code = globulin) 3.6 g/dL 2.2-4.2 albumin/globulin ratio (test code = albumin/globulin ratio) 1.2 0.7-2.0 calcium (test code = calcium) 9.1 mg/dL 8.5-10.1 bilirubin total (test code = bilirubin total) 0.50 mg/dL 0.2-1.00 SGOT/AST (test code = SGOT/AST) 25.0 U/L 15-37 SGPT/ALT (test code = SGPT/ALT) 33.0 U/L 14-59 alkaline phosphatase total ( test code = alkaline phosphatase total) 73 U/L 46-116 performing lab: (test code = performing lab:) [facility] [id number] 14:30:00* Test Item Value Reference Range Interpretation Comme nts HCG serum qual (test code = HCG serum qual) positive negative A performing lab: (test code = performing lab:) [facility] Medicinesed gybd2757-25-07 14:30:00* Test Item Value Reference Range Interpretation Comme nts sed rate (test code = sed rate) 36 mm/HR 0-20 H performing lab: (test code = performing lab:) [facility]PT[facility]2023-06-05 14:30:00* Test Item Value Reference Range Interpretation Comme nts prothrombin time patient (te st code = prothrombin time patient) 11.7 secs 9.4-12.5 international normal ratio ( test code = international normal ratio) 1.09 <2.0 performing lab: (test code = performing lab:) [facility] [id number] 14:30:00 * Test Item Value Reference Range Interpretation Comme nts PTT activated (test code = P TT activated) 31.3 secs 25.1-36.5 performing lab: (test code = performing lab:) [facility] reactive cgmartq3317-25-11 14:30:00* Test Item Value Reference Range Interpretation Comme nts C reactive protein (test cod e = C reactive protein) 2.21 mg/dL < 0.3 H performing lab: (test code = performing lab:) [facility] [id number] 14:30:00* Test Item Value Reference Range Interpretation Comme nts Ab hepatitis A IgM (test cod e = Ab hepatitis A IgM) nonreactive nonreactive Ag hepatitis B surface (test code = Ag hepatitis B surface) nonreactive nonreactive Ab hepatitis B core IgM (anushka t code = Ab hepatitis B core IgM) nonreactive nonreactive Ab hepatitis C (test code = Ab hepatitis C) nonreactive nonreactive signal to cutoff (test code = signal to cutoff) 0.29 <0.80 performing lab: (test code = performing lab:) [facility] HIV 14:30:00* Test Item Value Reference Range Interpretation Comme nts Ab HIV 1 (test code = Ab HIV 1) nonreactive nonreactive performing lab: (test code = performing lab:) [facility] W Auto Differential panel - [id number] 14:30:00* Test Item Value Reference Range Interpretation Comme nts white blood cell (test code = white blood cell) 12.8 K/mm3 5.5-11.0 H red blood cell (test code = red blood cell) 4.31 M/mm3 4.2-5.4 hemoglobin (test code = hemoglobin) 12.5 g/dL 12-16 hematocrit (test code = hematocrit) 36.0 % 37-47 L mean cell volume (test code = mean cell volume) 84 fL 80-98 mean cell HGB (test code = m jaz cell HGB) 29.0 pg 27-34 mean cell HGB concentration (test code = mean cell HGB concentration) 34.7 g/dL 30.8-34.1 H red cell distribution width (test code = red cell distribution width) 13.2 % 11-16 plt (test code = plt) 355 K/mm3 130-400 mean platelet volume (test c ode = mean platelet volume) 11.1 fL 8.9-12.1 neutrophil % (test code = neutrophil %) 62.6 % 45-70 lymphocyte % (test code = lymphocyte %) 27.4 % 20-40 monocyte % (test code = mono cyte %) 7.8 % 3-10 eosinophil % (test code = eosinophil %) 1.2 % 1-5 basophil % (test code = baso nicki %) 0.7 % 0.0-1.1 neutrophil # (test code = neutrophil #) 8.00 K/mm3 2.00-7.50 H lymphocyte # (test code = lymphocyte #) 3.49 K/mm3 1.50-4.00 monocyte # (test code = mono cyte #) 0.99 K/mm3 0.2-0.8 H eosinophil # (test code = eosinophil #) 0.15 K/mm3 0.04-0.4 basophil # (test code = baso nicki #) 0.09 K/mm3 0.02-0.10 manual diff required (test c ode = manual diff required) no manual diff nucleated red blood cell (te st code = nucleated red blood cell) 0 % 0-0 performing lab: (test code = performing lab:) [facility] MedicineComprehensive metabolic 2000 panel - Serum or [id number] 14:30:00* Test Item Value Reference Range Interpretation Comme nts sodium (test code = sodium) 137 mmol/L 136-145 potassium (test code = potassium) 4.0 mmol/L 3.5-5.1 chloride (test code = chloride) 97.0 mmol/L 98-107 L carbon dioxide (test code = carbon dioxide) 24.8 mmol/L 21-32 glucose (test code = glucose) 89 mg/dL 74-106 blood urea nitrogen (test co de = blood urea nitrogen) 8 mg/dL 7-18 glomerular filtration rate ( test code = glomerular filtration rate) 93.3 >60 creatinine (test code = creatinine) 0.82 mg/dL 0.55-1.02 total protein (test code = t otal protein) 7.8 g/dL 6.4-8.2 albumin (test code = albumin) 4.2 g/dL 3.4-5.0 globulin (test code = globulin) 3.6 g/dL 2.2-4.2 albumin/globulin ratio (test code = albumin/globulin ratio) 1.2 0.7-2.0 calcium (test code = calcium) 9.1 mg/dL 8.5-10.1 bilirubin total (test code = bilirubin total) 0.50 mg/dL 0.2-1.00 SGOT/AST (test code = SGOT/AST) 25.0 U/L 15-37 SGPT/ALT (test code = SGPT/ALT) 33.0 U/L 14-59 alkaline phosphatase total ( test code = alkaline phosphatase total) 73 U/L 46-116 performing lab: (test code = performing lab:) [facility] serum [id number] 14:30:00* Test Item Value Reference Range Interpretation Comme nts HCG serum qual (test code = HCG serum qual) positive negative A performing lab: (test code = performing lab:) [facility] Medicinesed lqys5559-81-68 14:30:00* Test Item Value Reference Range Interpretation Comme nts sed rate (test code = sed rate) 36 mm/HR 0-20 H performing lab: (test code = performing lab:) [facility]PT)2023-06-05 14:30:00* Test Item Value Reference Range Interpretation Comme nts prothrombin time patient (te st code = prothrombin time patient) 11.7 secs 9.4-12.5 international normal ratio ( test code = international normal ratio) 1.09 <2.0 performing lab: (test code = performing lab:) [facility] fpxupuc9750-58-44 14:30:00 * Test Item Value Reference Range Interpretation Comme nts PTT activated (test code = P TT activated) 31.3 secs 25.1-36.5 performing lab: (test code = performing lab:) [facility] reactive gwxdvry0601-76-37 14:30:00* Test Item Value Reference Range Interpretation Comme nts C reactive protein (test cod e = C reactive protein) 2.21 mg/dL < 0.3 H performing lab: (test code = performing lab:) [facility] [id number] 14:30:00* Test Item Value Reference Range Interpretation Comme nts Ab hepatitis A IgM (test cod e = Ab hepatitis A IgM) nonreactive nonreactive Ag hepatitis B surface (test code = Ag hepatitis B surface) nonreactive nonreactive Ab hepatitis B core IgM (anushka t code = Ab hepatitis B core IgM) nonreactive nonreactive Ab hepatitis C (test code = Ab hepatitis C) nonreactive nonreactive signal to cutoff (test code = signal to cutoff) 0.29 <0.80 performing lab: (test code = performing lab:) [facility] [place] [id number] 14:30:00* Test Item Value Reference Range Interpretation Comme nts Ab HIV 1 (test code = Ab HIV 1) nonreactive nonreactive performing lab: (test code = performing lab:) [facility] W Auto Differential panel - [id number] 14:30:00* Test Item Value Reference Range Interpretation Comme nts white blood cell (test code = white blood cell) 12.8 K/mm3 5.5-11.0 H red blood cell (test code = red blood cell) 4.31 M/mm3 4.2-5.4 hemoglobin (test code = hemoglobin) 12.5 g/dL 12-16 hematocrit (test code = hematocrit) 36.0 % 37-47 L mean cell volume (test code = mean cell volume) 84 fL 80-98 mean cell HGB (test code = m jaz cell HGB) 29.0 pg 27-34 mean cell HGB concentration (test code = mean cell HGB concentration) 34.7 g/dL 30.8-34.1 H red cell distribution width (test code = red cell distribution width) 13.2 % 11-16 plt (test code = plt) 355 K/mm3 130-400 mean platelet volume (test c ode = mean platelet volume) 11.1 fL 8.9-12.1 neutrophil % (test code = neutrophil %) 62.6 % 45-70 lymphocyte % (test code = lymphocyte %) 27.4 % 20-40 monocyte % (test code = mono cyte %) 7.8 % 3-10 eosinophil % (test code = eosinophil %) 1.2 % 1-5 basophil % (test code = baso nicki %) 0.7 % 0.0-1.1 neutrophil # (test code = neutrophil #) 8.00 K/mm3 2.00-7.50 H lymphocyte # (test code = lymphocyte #) 3.49 K/mm3 1.50-4.00 monocyte # (test code = mono cyte #) 0.99 K/mm3 0.2-0.8 H eosinophil # (test code = eosinophil #) 0.15 K/mm3 0.04-0.4 basophil # (test code = baso nicki #) 0.09 K/mm3 0.02-0.10 manual diff required (test c ode = manual diff required) no manual diff nucleated red blood cell (te st code = nucleated red blood cell) 0 % 0-0 performing lab: (test code = performing lab:) [facility] MedicineComprehensive metabolic 2000 panel - Serum or [id number] 14:30:00* Test Item Value Reference Range Interpretation Comme nts sodium (test code = sodium) 137 mmol/L 136-145 potassium (test code = potassium) 4.0 mmol/L 3.5-5.1 chloride (test code = chloride) 97.0 mmol/L 98-107 L carbon dioxide (test code = carbon dioxide) 24.8 mmol/L 21-32 glucose (test code = glucose) 89 mg/dL 74-106 blood urea nitrogen (test co de = blood urea nitrogen) 8 mg/dL 7-18 glomerular filtration rate ( test code = glomerular filtration rate) 93.3 >60 creatinine (test code = creatinine) 0.82 mg/dL 0.55-1.02 total protein (test code = t otal protein) 7.8 g/dL 6.4-8.2 albumin (test code = albumin) 4.2 g/dL 3.4-5.0 globulin (test code = globulin) 3.6 g/dL 2.2-4.2 albumin/globulin ratio (test code = albumin/globulin ratio) 1.2 0.7-2.0 calcium (test code = calcium) 9.1 mg/dL 8.5-10.1 bilirubin total (test code = bilirubin total) 0.50 mg/dL 0.2-1.00 SGOT/AST (test code = SGOT/AST) 25.0 U/L 15-37 SGPT/ALT (test code = SGPT/ALT) 33.0 U/L 14-59 alkaline phosphatase total ( test code = alkaline phosphatase total) 73 U/L 46-116 performing lab: (test code = performing lab:) [facility] serum [id number] 14:30:00* Test Item Value Reference Range Interpretation Comme nts HCG serum qual (test code = HCG serum qual) positive negative A performing lab: (test code = performing lab:) [id number] 14:30:00* Test Item Value Reference Range Interpretation Comme nts sed rate (test code = sed rate) 36 mm/HR 0-20 H performing lab: (test code = performing lab:) [facility] (PT)2023-06-05 14:30:00* Test Item Value Reference Range Interpretation Comme nts prothrombin time patient (te st code = prothrombin time patient) 11.7 secs 9.4-12.5 international normal ratio ( test code = international normal ratio) 1.09 <2.0 performing lab: (test code = performing lab:) [facility] cjdbuwu1978-76-36 14:30:00 * Test Item Value Reference Range Interpretation Comme nts PTT activated (test code = P TT activated) 31.3 secs 25.1-36.5 performing lab: (test code = performing lab:) [facility] reactive jnrkqly8412-75-26 14:30:00* Test Item Value Reference Range Interpretation Comme nts C reactive protein (test cod e = C reactive protein) 2.21 mg/dL < 0.3 H performing lab: (test code = performing lab:) [facility] [id number] 14:30:00* Test Item Value Reference Range Interpretation Comme nts Ab hepatitis A IgM (test cod e = Ab hepatitis A IgM) nonreactive nonreactive Ag hepatitis B surface (test code = Ag hepatitis B surface) nonreactive nonreactive Ab hepatitis B core IgM (anushka t code = Ab hepatitis B core IgM) nonreactive nonreactive Ab hepatitis C (test code = Ab hepatitis C) nonreactive nonreactive signal to cutoff (test code = signal to cutoff) 0.29 <0.80 performing lab: (test code = performing lab:) [facility] HIV 14:30:00* Test Item Value Reference Range Interpretation Comme nts Ab HIV 1 (test code = Ab HIV 1) nonreactive nonreactive performing lab: (test code = performing lab:) [facility] Notes Date/Time Note Provider Source 2023-07-03 12:56:00 [id number] rXz4NRJr9snYMIxgCBEY6MCWFjZ7986-99-98G69:56:00 [facility] ([facility]Discharge SummaryREPORT#:[id number] REPORT STATUS: SignedREPORT INITIALIZATION DATE:07/03/23 TIME: 125 PATIENT: JOHN TRINIDAD UNIT #: [id number]#: [id number] [facility] AGE: 37 SEX: F ATTEND: Chaitanya Chapin MDA AUTHOR: Yanira Greer PAREPT SERVICE DT/TIME: 07/03/23 1256* ALL edits or amendments must be made on the electronic/computer document * General InformationDate of admission:Observation Start Date: 06/12/23Date of admission: 06/12/23 Discharge date: 06/14/23Discharge diagnosis:Left tibia bicondylar plateau fractureHospital course:On 06.12.23 the patient underwent ORIF of her left tibia bicondylar plateau fracture.Consultants: internal medicine, pain managementPt. condition on discharge: stableAllergies:Allergies:haloperidol (From HALDOL) (Coded, Severe, LOCKED JAW, 06/12/23)morphine (Coded, Severe, SEVERE NAUSEA AND VOMITING; RASH, 06/12/23)amoxicillin (From AUGMENTIN) (Coded, Severe, GI UPSET, 06/12/23)clavulanic acid (From AUGMENTIN) (Coded, Severe, GI UPSET, 06/12/23) Med Rec Med RecDischarge meds:Stop taking the following medications:IBUPROFEN (MOTRIN) 800 MG TAB 800 MILLIGRAM ORAL THREE TIMES DAILY NEEDED. as needed for PAIN/ARTHRITIS Continue taking these medications:ALBUTEROL (ALBUTEROL HFA 90 MCG/ACT) 90 MCG INHALER 1 PUFF INHALATION RT - EVERY 4 HOURS. as needed for ASTHMA FA/MV/CA/FE/MIN/LYCOPENE/LUTEIN (CENTRUM) 18 MG IRON-400 MCG TAB 1 TABLET ORAL DAILY. [HERBAL SUPPLEMENT ] Comments: SUPPLEMENT FOR SMOKING CESSATION Hydrocodone/Acetaminophen (HYDROcodone/APAP 10/325) 10 MG-325 MG TAB 1 TABLET ORAL EVERY 4 HOURS NEEDED. as needed for PAIN Nicotine (NICODERM CQ 7 MG) 7 MG/24 HOUR PATCH 1 PATCH TOPICAL DAILY. Start taking the following new medications:ASPIRIN (ASPIRIN) 81 MG TAB.CHEW 81 MILLIGRAM ORAL DAILY. Qty = 30 No Refills Discharge Instructions PCP)( Discharge to: Home/Self Care Discharge InstructionsAdditional Discharge Routines: Wound/Dressing Care, Add. instructions)( Diet: Regular)( Activity: No Weight Bearing Left)( Wound/dressing care: Keep wound clean and dry, Leave dressing in place)( Additional instructions:Take 81 mg ASA daily once home for DVT prophylaxis at 1257 at 1247 RPT #:[id number] OF REPORT DSDischarge qasshcy8143-85-06P45:56:00Y.[id number] ailable for patient tgknLKXSJBXVPDIXSJ2919-86-41X93:58:11 [facility] 2023-06-14 10:34:00 [id number] CmvpkFWbYopgBDMOKGkQLh0x4II24 BLPPXI4heINrCgnuHsOwQ90h2KL9919-12-07A31:34:00 [facility] ([facility])Clinical NoteREPORT#:[id number] REPORT STATUS: SignedREPORT INITIALIZATION DATE:06/14/23 TIME: 103 PATIENT: JOHN TRINIDAD UNIT #: [id number]#: [id number] ROOM/BED: [facility]-ADOB: [birth year] AGE: 37 SEX: F ATTEND: Chaitanya Chapin [facility] AUTHOR: Samson Campos MDREPT SERVICE DT/TIME: 06/14/23 1034* ALL edits or amendments must be made on the electronic/computer document * Clinical NoteNote:[facility] Samson Jones M.D. (cell text [phone]) Assessment/Plan1.) Anemia of acute blood loss- .Hgb 12.1 -06/13/23, asymptomatic.2.) POD#2 ORIF Left Tibial Plateau Fx- .acute multi-modal pain control and followup. Anticoagulation as per Dr. Chapin. NWB to LLE. Requests walker.3.) Bipolar Hypertension- .follow BP and hold Rxs if SBP<120.4.) OsteoArthritis Asthma- .continue on Rx. * OK for DISCHARGE per Internal Medicine, feeling much better. Prior Events/Overnight: Uneventful.Chief Complaint: No significant complaints. ObjectiveVital Signs: Date Time Temp Pulse Resp B/P B/P Pulse O2 O2 Flow FiO2 Mean Ox Delivery Rate 06/13 0701 97.0 97 18 110/69 82.8 99 06/13 0325 100 Nasal 2 28 cannula 06/13 0150 97.0 101 16 130/77 94.9 100 06/12 2258 Nasal 3 cannula 06/12 2206 98.1 93 16 123/79 93.9 99 06/12 1947 97.7 91 16 124/81 95.6 99 06/12 1935 98 Nasal 2 28 cannula 06/12 1504 97.7 85 16 131/83 98.8 98 Room air 06/12 1500 95 Nasal 3 cannula Gen: Alert, oriented, in mild discomfort Neck: No Masses, No Thyromegaly-CV: Regular Rate Rhythm / Edema- no significant Resp: Clear To Ascultation / Normal Respiratory EffortABD: NonTender / NonDistended MS/Skin: No sign of compartment syndrome / +toes DF/PFOther: Labs/X-ray: none Samson Jones at 1217 RPT #:[id number] OF REPORT CLClinical [id number]:34:00Y.[id number] able for patient lpehKYKPSUSAQUGJXY6074-02-54P31:17:41 [facility] 2023-06-14 08:43:00 [id number] wNgxuhkFFTlgi6tkjCSdjtrxTu9wp 3zbTrZVSFAcLwr/nrt9okTbiyf89104-44-91X18:43:00 [facility] ([facility])Orthopaedic Progress NoteREPORT#:[id number] REPORT STATUS: SignedREPORT INITIALIZATION DATE:06/14/23 TIME: 842 PATIENT: JOHN TRINIDAD UNIT #: [id number]#: [id number] [facility] [birth year] AGE: 37 SEX: F ATTEND: Chaitanya Chapin MDA AUTHOR: Yanira Greer PAREPT SERVICE DT/TIME: 06/14/2343* ALL edits or amendments must be made on the electronic/computer document * SubjectivePatient reports:Yes: ambulating with therapy, pain. ObjectiveVS:Last Documented: Result Date Time Pulse Ox 99 06/13 700 B/P 110/69 06/13 700 B/P Mean 82.8 06/13 700 Temp 36.1 06/13 07 Pulse 97 06/13 07 Resp 18 06/13 700 FiO2 28 06/13 032 O2 Delivery Nasal cannula 06/13 032 O2 Flow Rate 2 06/13 032 PATIENT WEIGHT: Weight (lb): 165Weight (oz): 5.55Weight (kg): 74.843 Medications:Active Meds + DC'd Last 24 HrsMagnesium Hydroxide (MILK OF MAGNESIA) 30 ML BEDTIME PRN PRN PO Methocarbamol (ROBAXIN) 500 MG ANES Q6H PRN PRN PO Enoxaparin Sodium (LOVENOX) 40 MG DAILY 0600 SUBQ Hydrocodone Bitart/Acetaminophen (NORCO 5/325 TABLET) 1 UDTAB Q4H PRN PRN PO Hydrocodone Bitart/Acetaminophen (NORCO 10/325 TABLET) 1 UDTAB Q4H PRN PRN PO Methocarbamol (ROBAXIN) 500 MG ANES Q6HR PO (DC) Cefazolin Sodium (KEFZOL) 2 GM Q8H IV (DC) Sodium Chloride (SODIUM CHLORIDE) 20 ML Q8H IV (DC) Lactated Ringer's (LACTATED RINGERS) 1,000 ML .Q20H IV Diazepam (VALIUM) 0.5 MG Q4H PRN PRN PO Varenicline (CHANTIX) 0.5 MG BID PO Albuterol Sulfate (PROVENTIL) 2.5 MG RTQ4H PRN PRN INH Diphenhydramine HCl (BENADRYL) 12.5 MG ANES Q4H PRN PRN IV Diphenhydramine HCl (BENADRYL) 25 MG ANES BEDTIME PRN PRN PO Hydromorphone HCl (HYDROmorphone 10 mg/NS 50 mL VIBRATION ENGINEER) 50 ML ASDIR IV (CKD) IV Miscellaneous Supplies (VIBRATION ENGINEER WYATT) 1 EA ASDIR MISC Naloxone HCl (NARCAN) 0.1 - 0.2 MG ANES ASDIR IV Ondansetron HCl (ZOFRAN) 4 MG ANES Q4H PRN PRN IV Promethazine HCl (PHENERGAN) 6.25 MG ANES ASDIR PRN IM Acetaminophen (TYLENOL) 650 MG Q4H PRN PRN PO Tramadol HCl (ULTRAM) 50 MG Q4H PRN PRN PO Tramadol HCl (ULTRAM) 100 MG Q4H PRN PRN PO Physical ExamGeneral appearance: alert, oriented, no acute distressExtremities: LLE with dressings C/D/I. NVI. + ankle DF. Diagnosis, Assessment PlanFree text A P:POD#2 s/p left tibia bicondylar plateau ORIF - DVT prophylaxis- Pain control- PT - NWB to LLE- NVI- Take 81 mg ASA daily once home for DVT prophylaxis.- D/c held yesterday due to pain. Plan for d/c today if pain controlled. at 0846 at 1234 RPT #:[id number] OF REPORT PRProgress mvly8839-90-26S20:43:00Y.QLHO86865708-0455KMObnga able for patient asnmUBSQFOIBQENMTJ4990-34-04P79:46:54 [facility] 2023-06-13 10:48:00 [id number] aDlvcq668h72xkwn+rzZr7s+NUqus YVjlTqAT/eRZ3NMN98Tnf723mbP6305-37-87L35:48:[address] [facility] ([facility])Clinical NoteREPORT#:[id number] REPORT STATUS: SignedREPORT INITIALIZATION DATE:06/13/23 TIME: 1047 PATIENT: JOHN TRINIDAD UNIT #: [id number]#: [id number] [facility] [birth year] AGE: 37 SEX: F ATTEND: Chaitanya Chapin MDA AUTHOR: Samson Campos MDREPT SERVICE DT/TIME: 06/13/23 1048* ALL edits or amendments must be made on the electronic/computer document * See AddendumClinical NoteNote:[facility] Samson Jones M.D. (cell text [phone]) Assessment/Plan1.) Anemia of acute blood loss- .Hgb 12.1, asymptomatic.2.) POD#1 ORIF Left TIbial Plateau Fx- .acute multi-modal pain control and followup. Anticoagulation as per Dr. Chapin.3.) BiPolarHypertension- .follow BP and hold Rxs if SBP<120.4.) OsteoArthritis Asthma Nicotine use- .continue on Rx. Counseling on nicotine cessation provided, she quit for 10 months last year. Prior Events/Overnight: Uneventful.Chief Complaint: No significant complaints. ObjectiveVital Signs: Date Time Temp Pulse Resp B/P B/P Pulse O2 O2 Flow FiO2 Mean Ox Delivery Rate 06/12 1124 98.2 120 16 136/84 101.5 100 Nasal cannula 06/12 0653 97.0 103 16 122/84 96.8 99 Room air 06/12 0306 97.7 103 14 125/82 96.4 98 Room air 06/11 2230 Nasal 3 cannula 06/12 2147 98.2 113 18 122/77 92.1 99 Simple 5 mask 06/11 2116 97.5 99 14 124/72 89.4 98 Room air 06/11 1952 95.5 100 14 133/83 99.5 98 Nasal 3 cannula 04/02 1915 97.6 108 16 132/83 98 Nasal 3 cannula 04/ 1900 107 19 143/90 97 Nasal 3 cannula 04/ 1845 103 16 151/96 98 Nasal 3 cannula 04/ 1843 92 18 148/93 97 Nasal 3 cannula 04/ 1830 94 15 163/97 97 Nasal 3 cannula 06/11 1829 Nasal 3 cannula 04/ 1815 103 19 158/103 97 Simple 8 mask 06/11 1800 82 18 150/91 98 Simple 8 mask 06/11 1752 Simple 8 mask 06/11 1745 86 18 106/60 94 Simple 8 mask 06/11 1741 98.2 85 12 98/54 94 Simple 8 mask Gen: Alert, oriented, in mild discomfort Neck: No Masses, No Thyromegaly-CV: Regular Rate Rhythm / Edema- no significant Resp: Clear To Ascultation / Normal Respiratory EffortABD: NonTender / NonDistended MS/Skin: No sign of compartment syndrome / +ankle DF/PFOther: Labs/X-ray: Laboratory Tests: 06/12 0400 Chemistry Sodium (136 - 145 mmol/L) 137 Potassium (3.5 - 5.1 mmol/L) 4.5 Chloride (98 - 107 mmol/L) 100.0 Carbon Dioxide (21 - 32 mmol/L) 27.2 BUN (7 - 18 mg/dL) 11 Creatinine (0.55 - 1.02 mg/dL) 0.86 Glomerular Filtr Rate (>60) 88.1 Glucose (74 - 106 mg/dL) 107 H Calcium (8.5 - 10.1 mg/dL) 8.6 Hematology WBC (5.5 - 11.0 K/mm3) 14.3 H RBC (4.2 - 5.4 M/mm3) 4.20 Hgb (12 - 16 g/dL) 12.1 Hct (37 - 47 %) 35.6 L MCV (80 - 98 fL) 85 MCH (27 - 34 pg) 28.8 MCHC (30.8 - 34.1 g/dL) 34.0 RDW (11 - 16 %) 13.5 Plt Count (130 - 400 K/mm3) 342 MPV (8.9 - 12.1 fL) 11.5 Neut % (Auto) (45 - 70 %) 79.7 H Lymph % (Auto) (20 - 40 %) 12.2 L [place] % (Auto) (3 - 10 %) 7.4 Eos % (Auto) (1 - 5 %) 0.1 L Baso % (Auto) (0.0 - 1.1 %) 0.2 Neut # (Auto) (2.00 - 7.50 K/mm3) 11.36 H Lymph # (Auto) (1.50 - 4.00 K/mm3) 1.74 [place] # (Auto) (0.2 - 0.8 K/mm3) 1.06 H Eos # (Auto) (0.04 - 0.4 K/mm3) 0.01 L Baso # (Auto) (0.02 - 0.10 K/mm3) 0.03 Add Manual Diff (MANUAL DIFF) NO Nucleated RBC % (0 - 0 %) 0 Samson Jones M.D. at 1300 Addendum 1: 06/13/23 1725 by Samson Campos MD Patient is currently medically stable. at 1726 RPT #:[id number] OF REPORT CLClinical tzce2924-27-89U80:48:00Y.[id number] able for patient ppujAQFCJMBDDGHEDE3268-87-49Q62:00:26 [facility] 2023-06-13 10:39:00 [id number] MqdZvKtMEG1pkOODrDqEJf3EgzPJN 7EYBTFCZNM8M7JtjJ30Cl40DFpB3982-50-11V26:39:00 [facility] ([facility])Op/Inv Procedure Note - BriefREPORT#:[id number] REPORT STATUS: SignedREPORT INITIALIZATION DATE:06/13/23 TIME: 1039 PATIENT: JOHN TRINIDAD UNIT #: [id number]#: [id number] [facility] [birth year] AGE[facility] 37 SEX: F ATTEND: Chaitanya Chapin AUTHOR: Yanira Greer SERVICE DT/TIME: 06/12/23 1730* ALL edits or amendments must be made on the electronic/computer document * Op/Inv Proc Note - Brief TEXT Brief Op/Inv Procedure NoteNote details: DOS: 4.2.24 *PRE-PROCEDURE DIAGNOSIS:Left tibia bicondylar fracture *POST-PROCEDURE DIAGNOSIS:Same *PROCEDURE(S) PERFORMED:ORIF left tibia plateau *PRIMARY SURGEON:Chaitanya Chapin *PACKAGING OPERATOR(S):Yanira Greer PA-C ANESTHETIC:General *ESTIMATED BLOOD LOSS in ml's:None *SPECIMEN(S) REMOVED:None *COMPLICATIONS:None DRAIN(S):None[] TUBE(S):None[] IMPLANT(S):None[] FLUIDS:[] URINE OUTPUT:[] *FINDINGS:Medial and lateral Synthes plates placed. DISPOSITION:To PACU at 1049 at 1234 RPT #:[id number] OF REPORT PNProcedure yqdi3011-43-55T72:39:00Y.[id number] able for patient ckdyAWFTYAZLNLURFF4439-67-97D63:50:11 HCATO 2023-06-13 10:23:00 [id number]/ MXJQBzAwCaUQuvue1jjpDUenPjvgR ABu4pzqSqyaNLHtRkwKWkABLyAd8793-92-40W64:23:[address] [facility] ([facility])Orthopaedic Progress NoteREPORT#:[id number] REPORT STATUS: SignedREPORT INITIALIZATION DATE:06/13/23 TIME: 1023 PATIENT: JOHN TRINIDAD UNIT #: [id number]#: [id number] [facility] [birth year] AGE: 37 SEX: F ATTEND: Chaitanya Chapin AUTHOR: Yanira Greer SERVICE DT/TIME: 06/13/23 1023* ALL edits or amendments must be made on the electronic/computer document * SubjectivePatient reports:Yes: pain. No: ambulating with therapy. ObjectiveVS:Last Documented: Result Date Time Pulse Ox 99 06/12 652 B/P 122/84 06/12 652 B/P Mean 96.8 06/12 652 O2 Delivery Room air 06/12 652 Temp 36.1 06/12 652 Pulse 103 06/12 652 Resp 16 06/12 652 O2 Flow Rate 3 06/11 2230 PATIENT WEIGHT: Weight (lb): 165Weight (oz): 5.55Weight (kg): 75.000 Medications:Active Meds + DC'd Last 24 HrsMagnesium Hydroxide (MILK OF MAGNESIA) 30 ML BEDTIME PRN PRN PO Methocarbamol (ROBAXIN) 500 MG ANES Q6H PRN PRN PO Nicotine (NICODERM) 7 MG DAILY TRANSDERM (CAN) Enoxaparin Sodium (LOVENOX) 40 MG DAILY 0600 SUBQ Hydrocodone Bitart/Acetaminophen (NORCO 5/325 TABLET) 1 UDTAB Q4H PRN PRN PO Hydrocodone Bitart/Acetaminophen (NORCO 10/325 TABLET) 1 UDTAB Q4H PRN PRN PO Methocarbamol (ROBAXIN) 500 MG ANES Q6HR PO Cefazolin Sodium (KEFZOL) 2 GM Q8H IV Sodium Chloride (SODIUM CHLORIDE) 20 ML Q8H IV Lactated Ringer's (LACTATED RINGERS) 1,000 ML .Q20H IV Diazepam (VALIUM) 0.5 MG Q4H PRN PRN PO Varenicline (CHANTIX) 0.5 MG BID PO Scopolamine HBr (TRANSDERM-SCOP) 1 MG .STK-MED ONE TRANSDERM (DC) Albuterol Sulfate (PROVENTIL) 2.5 MG RTQ4H PRN PRN INH Cefazolin Sodium (KEFZOL) 2 GM .STK-MED ONE IV (DC) Fentanyl Citrate (SUBLIMAZE) 200 MCG .STK-MED ONE IV (DC) Hydromorphone HCl (DILAUDID) 2 MG .STK-MED ONE IV (DC) Lactated Ringer's (LACTATED RINGERS) 2,000 ML .STK-MED ONE IV (DC) Lidocaine HCl (XYLOCAINE PF) 5 ML .STK-MED ONE IV (DC) Metoprolol Tartrate (LOPRESSOR) 5 MG .STK-MED ONE IV (DC) Midazolam HCl (VERSED) 5 MG .STK-MED ONE IV (DC) Ondansetron HCl (ZOFRAN) 4 MG .STK-MED ONE IV (DC) Pantoprazole Sodium (PROTONIX IV) 40 MG .STK-MED ONE IV (DC) Propofol (DIPRIVAN) 200 MG .STK-MED ONE IV (DC) Rocuronium [place] (Rocuronium [place] 10 mg/mL) 100 MG .STK-MED ONE IV (DC) Sodium Chloride (SODIUM CHLORIDE) 10 ML .STK-MED ONE IV (DC) Sugammadex Sodium ([place]) 200 MG .STK-MED ONE IV (DC) Diphenhydramine HCl (BENADRYL) 12.5 MG ANES Q4H PRN PRN IV Diphenhydramine HCl (BENADRYL) 25 MG ANES BEDTIME PRN PRN PO Hydromorphone HCl (HYDROmorphone 10 mg/NS 50 mL VIBRATION ENGINEER) 50 ML ASDIR IV (CKD) IV Miscellaneous Supplies (VIBRATION ENGINEER [place]ATT) 1 EA ASDIR MISC Naloxone HCl (NARCAN) 0.1 - 0.2 MG ANES ASDIR IV Ondansetron HCl (ZOFRAN) 4 MG ANES Q4H PRN PRN IV Promethazine HCl (PHENERGAN) 6.25 MG ANES ASDIR PRN IM Acetaminophen (TYLENOL) 650 MG Q4H PRN PRN PO Acetaminophen/Codeine Phosphate (TYLENOL W CODEINE NO.3) 1 UDTAB Q4H PRN PRN PO (CAN) Acetaminophen/Codeine Phosphate (TYLENOL W CODEINE NO.3) 2 UDTAB Q4H PRN PRN PO (CAN) Tramadol HCl (ULTRAM) 50 MG Q4H PRN PRN PO Tramadol HCl (ULTRAM) 100 MG Q4H PRN PRN PO Dexmedetomidine HCl (Precedex) 0 .STK-MED ONE IV (DC) Ondansetron HCl (ZOFRAN) 0 .STK-MED ONE .ROUTE (DC) Sodium Chloride (SODIUM CHLORIDE) 100 ML .STK-MED ONE IV (DC) Fentanyl Citrate (SUBLIMAZE) 25 MCG PACU Q5MIN PRN PRN IV (DC) Hydralazine HCl (hydrALAZINE HCL) 10 MG PACU Q10MIN PRN PRN IV (DC) Hydrocodone Bitart/Acetaminophen (NORCO 5/325 TABLET) 1 UDTAB PACU Q4H PRN PRN PO (DC) Hydrocodone Bitart/Acetaminophen (NORCO 10/325 TABLET) 1 UDTAB PACU Q4H PRN PRN PO (DC) Hydromorphone HCl (DILAUDID) 0.4 MG PACU Q5MIN PRN PRN IV (DC) Meperidine HCl (MEPERIDINE HCL) 12.5 MG PACU Q5MIN PRN PRN IV (DC) Methocarbamol (ROBAXIN) 500 MG PACU ONCE PRN PO (DC) Metoprolol Tartrate (LOPRESSOR) 2 MG PACU Q10MIN PRN PRN IV (DC) Ondansetron HCl (ZOFRAN) 4 MG PACU ONCE PRN PRN IV (DC) Promethazine HCl (PHENERGAN) 6.25 MG PACU Q15MIN PRN PRN IM (DC) Cefazolin Sodium (KEFZOL) 2 GM ONCALL IV (DC) Lactated Ringer's (LACTATED RINGERS) 1,000 ML PREOP IV FLUID IV (DC) Lidocaine HCl (XYLOCAINE) 2 ML PREOP SUBQ (DC) Physical ExamGeneral appearance: alert, oriented, no acute distressExtremities: LLE with dressings C/D/I. NVI. + ankle DF. Diagnosis, Assessment PlanFree text A P:POD#1 s/p left tibia bicondylar plateau ORIF - DVT prophylaxis- Pain control- PT - NWB to LLE- NVI- Plan for d/c home this afternoon if pain controlled and working well with PT.- Take 81 mg ASA daily once home for DVT prophylaxis. at 1025 at 1234 RPT #:[id number] OF REPORT PRProgress nama2811-39-01P37:23:00Y.[id number] able for patient xudwYRKLHMXQKYQISZ2334-84-95L15:25:39 HCATO 2023-06-12 20:09:00 [id number] MBFugMVQCUA+lvOw/advaYysv3jFK HNgL6eTElLUeY6gcZav9AHTqMKM8551-50-49L55:09:00 [facility] ([facility])Clinical NoteREPORT#:[id number] REPORT STATUS: SignedREPORT INITIALIZATION DATE:06/12/23 TIME: 2008 PATIENT: JOHN TRINIDAD UNIT #: [id number]#: [id number] [facility] [birth year] AGE: 37 SEX: F ATTEND: Chaitanya Chapin MDADM AUTHOR: Samson Campos MDREPT SERVICE DT/TIME: 06/12/232008* ALL edits or amendments must be made on the electronic/computer document * Clinical NoteNote:[facility] Samson Jones MD(cell text [phone])Internal Medicine Consult at request of : Dr. Chaitanya Chapin Chief Complaint: .left tibial plateau fracture HPI: 37 yo F is now s/p Left tibial plateau open reduction and internal fixation and bone graft by Dr. Chapin. Ms. Trinidad had a fall on 05/30/23 and sustained left bicondylar tibial fracture.Comorbidities: see below. PmHx: .OsteoArthritis, asthma, bipolar disease, IBS, back pain ALLERGY: Allergies:haloperidol (From HALDOL) (Coded, Severe, LOCKED JAW, 06/12/23)morphine (Coded, Severe, SEVERE NAUSEA AND VOMITING; RASH, 06/12/23)amoxicillin (From AUGMENTIN) (Coded, Severe, GI UPSET, 06/12/23)clavulanic acid (From AUGMENTIN) (Coded, Severe, GI UPSET, 06/12/23) Home Medications: Vital Signs: Date Time Temp Pulse Resp B/P B/P Pulse O2 O2 Flow FiO2 Mean Ox Delivery Rate 06/11 2148 98.2 113 18 122/77 92.1 99 Simple 5 mask 04/02 2116 97.5 99 14 124/72 89.4 98 Room air /1952 95.5 100 14 133/83 99.5 98 Nasal 3 cannula 04/02 191 97.6 108 16 132/83 98 Nasal 3 cannula 04/02 1900 107 19 143/90 97 Nasal 3 cannula 04/02 1845 103 16 151/96 98 Nasal 3 cannula 04/02 1843 92 18 148/93 97 Nasal 3 cannula 04/02 1830 94 15 163/97 97 Nasal 3 cannula 04/02 1829 Nasal 3 cannula 04/02 1815 103 19 158/103 97 Simple 8 mask 04/02 1800 82 18 150/91 98 Simple 8 mask 04/02 1752 Simple 8 mask 04/02 1745 86 18 106/60 94 Simple 8 mask 04/02 1741 98.2 85 12 98/54 94 Simple 8 mask 04/02 1125 98.0 111 21 131/97 98 Room air SgHx: .Hysterectomy, colonoscopy SHx: Tob: current smoker FHx: .No significant hx of DVT/PE.Alcohol: none Drugs: none Lives: with other family ..Vitals:Vital Signs: Date Time Temp Pulse Resp B/P B/P Pulse O2 O2 Flow FiO2 Mean Ox Delivery Rate /1952 95.5 100 14 133/83 99.5 98 Nasal 3 cannula 04/02 191 97.6 108 16 132/83 98 Nasal 3 cannula 04/02 1900 107 19 143/90 97 Nasal 3 cannula 04/02 1845 103 16 151/96 98 Nasal 3 cannula 04/02 1843 92 18 148/93 97 Nasal 3 cannula 04/02 1830 94 15 163/97 97 Nasal 3 cannula 04/02 1829 Nasal 3 cannula 04/02 1815 103 19 158/103 97 Simple 8 mask 04/02 1800 82 18 150/91 98 Simple 8 mask 04/02 1752 Simple 8 mask 04/02 1745 86 18 106/60 94 Simple 8 mask 04/02 1741 98.2 85 12 98/54 94 Simple 8 mask 04/02 1125 98.0 111 21 131/97 98 Room air Gen: Alert, in moderate discomfort.EYE: Nl lids conjunctiva.ENT: Nl ears Nose, nl lips,. Neck: Supple, nl thyroid, No masses.CV: Regular Rate Rhythm, no heave or significant murmur. Edema- none RESP: Clear to Auscultation, normal Respiratory effort.ABD: Soft, NonDistended,.LYM: No significant cervical lymphadenopathy.MS: No sign of compartment syndrome, Knee is wrapped,NEURO: Nonfocal, grossly normal sensation of LE, +toes DF/PF..Preop Labs(06/05/23): CBC:. Hgb 12.5, Plt 355, CHEM: Na 137, K 4.0, Cr0.82 (eGFR 93.3%), . Ekg: Normal sinus rhythm.(medium to high risk of complications or morbidity) (major surgery) (IV sedative, meds).Assessment Plan1.) Anemia of Acute Blood Loss- .will recheck tomorrow. 2.) S/p ORIF Left TIbial Plateau Fx- .acute multi-modal pain control and followup. Anticoagulation as per Dr. Chapin.3.) BiPolarHypertension- .follow BP and hold Rxs if SBP<120.4.) OsteoArthritis Asthma Nicotine use- .continue on Rx. Counseling on nicotine cessation to be provided. . Samson Jones M.D. Thanks!.....G9902 - Patient screened for tobacco use AND identified as a tobacco [id number] Patient received tobacco cessation counseling. G8417 BMI documented as above normal parameters and a f/u plan is documented 1123F - ACP disscussion - default code status while at [facility]. at 2325 RPT #:[id number] OF REPORT CLClinical pelz9908-96-12Z14:09:00Y.[id number] able for patient srwqFFZCGSNOQKSUDI1808-25-01B52:25:36 HCATO 2023-06-05 14:21:00 [id number] wJ3nBdJPNScZkJE8+M5FYp8Lp7tJO fE7a4+4lVD633Jv9BSg101pgeyG3183-90-64L15:21:23688 -0023 [place] [id number] PATIENT NAME: JOHN TRINIDAD ADMIT DATE: ACCOUNT NO: [id number] ROOM NO: AGE: 37 REPORT TYPE: ELECTROCARDIOGRAM SEX: F ADMITTING PHYSICIAN: ATTENDING PHYSICIAN:Chaitanya Chapin MD Order:[id number] Reason : PRE OP; SMOKER Test Date/Time Stamp:SunJun 05 2023 14:21:25Blood Pressure : / mmHGVent. Rate : 100 BPM Atrial Rate : 100 BPM P-R Int : 132 ms QRS Dur : 080 ms QT Int : 336 ms P-R-T Axes : 072 009 011 degrees QTc Int : 433 ms Normal sinus rhythmNormal ECGNo previous ECGs availableConfirmed by MALACHI JOE MD ([id number]) on 06/06/2023 2:32:30 PM Referred By: Chaitanya Chapin Confirmed by:MALACHI JOE MD PATIENT NAME: JOHN TRINIDAD .[id number] AVAvailable for patient gpnxCVBWPVMWGOPSHI0125-47-82V85:32:52 [facility]
[2023-08-10 19:13] LABS: Absolute Basophils 0.1 K/uL (0-0.5); Absolute Eosinophils 0.1 K/uL (0-0.5); Absolute Lymphocytes (CBC) 1.8 K/uL (0.7-4.9); Absolute Monocytes 0.9 K/uL (0.1-1.3); Absolute Neutrophil 7.2 K/uL (1.8-8.0); Basophils % 0.8 % (0-1.3); Eosinophils % 0.7 % (0-4.4); Hematocrit 41.4 % (36.0-45.0); Hemoglobin 14.1 g/dL (12.0-15.0); MCH 29.1 pg (27.0-35.0); MCV 85.5 fL (80-100); MPV 9.3 fL (7.6-11.3); Monocytes % 8.7 % (3.3-12.3); Neutrophils % 71.8 % (41.7-73.7); Nucleated Red Blood Cells % 0.1 % (0-0); Platelets 247 thou/uL (152-406); RBC Red Blood Cell Count 4.85 M/uL (3.86-4.86); Red Cell Distribution Width 14.5 % (12.1-15.2)
[2023-08-10 19:25] LABS: SARS-CoV-2 Antigen CONTROL BLUE LINE VIS/BG OK; SARS-CoV-2 Antigen Rapid Res Negative (Negative)
[2023-08-10 19:27] LABS: Albumin 4.3 g/dL (3.4-5.0); Albumin/Globulin Ratio 1.2 (1.1-1.8); Anion Gap 6.5 mEq/L (5.0-15.0); Bilirubin Total 0.4 mg/dL (0.2-1.0); Globulin 3.7 g/dL (2.3-3.5); Potassium 3.5 mEq/L (3.5-5.1)
[2023-08-10] MEDS ORDERED: CEFTRIAXONE 1000 MG/VIAL ONE (19:39)
[2023-08-10] MEDS ORDERED: LEVALBUTEROL 1.25 MG/3 ML NEB ONE (19:39)
[2023-08-10] MEDS ORDERED: IPRATROPIUM BROM 0.5MG/2.5ML ONE (19:39)
[2023-08-10] MEDS ORDERED: predniSONE 20 MG TAB ONE (19:39)
[2023-08-10] MEDS ORDERED: dexAMETHasone 10 MG/ML VIAL ONE (19:40)
[2023-08-10] MEDS ORDERED: AZITHROMYCIN 250 MG TAB ONE (19:40)
[2023-08-10] MEDS ORDERED: NA CHLORIDE 0.9% 1,000 ML ONE (19:40)
--- NOTE | 2023-08-10 19:42 | ER ---
Nurse's Notes [facility] Name: Mira Trinidad Age: 37 yrs Sex: Female : 1985 Arrival Date: 08/10/2023 Time: 18:12 Bed IW10 Private MD: Diagnosis: Acute upper respiratory infection, unspecified;Tobacco abuse counseling;Tobacco use;Acute bronchospasm;COPD/ Chronic obstructive pulmonary disease with (acute) exacerbation Presentation: 08/09 18:29 Chief complaint: Patient states: cold symptoms that started Sunday with diarrhea that as6 started yesterday and n/v that started today. Coronavirus screen: At this time, the client does not indicate any symptoms associated with coronavirus-19. Ebola Screen: No symptoms or risks identified at this time. Initial Sepsis Screen: Does the patient meet any 2 criteria? No. Patient's initial sepsis screen is negative. Does the patient have a suspected source of infection? No. Patient's initial sepsis screen is negative. Risk Assessment: Do you want to hurt yourself or someone else? Patient reports no desire to harm self or others. Onset of symptoms was August 06, 2023. 18:29 Acuity: MARK ANTHONY 3 as6 18:29 Method Of Arrival: Wheelchair as6 Triage Assessment: 21:34 General: Appears uncomfortable, Behavior is calm, cooperative, appropriate for age. cp4 Pain: Denies pain. 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 - Infectious Disease History:: Denies. - Social history:: Smoking status: Patient reports the use of cigarette tobacco products, smokes one-half pack cigarettes per day. - Family history:: not pertinent. - Hospitalizations: : No recent hospitalization is reported. Screenin:00 [facility] ED Fall Risk Assessment (Adult) History of falling in the last 3 months, kc6 including since admission No falls in past 3 months (0 pts) Confusion or Disorientation No (0 pts) Intoxicated or Sedated No (0 pts) Impaired Gait Yes (1 pt) Mobility Assist Device Used Yes (1 pt) Altered Elimination No (0 pt) Score/Fall Risk Level 0 - 2 = Low Risk. Abuse screen: Denies threats or abuse. Denies injuries from another. Nutritional screening: No deficits noted. Tuberculosis screening: No symptoms or risk factors identified. Assessment: 19:43 Reassessment: Disposition pending, IV fluids and medications due to code neal. cp4 Vital Signs: 18:29 BP 139 / 93; Pulse 115; Resp 18 S; Temp 99(TE); Pulse Ox 98% on R/A; Weight 71.21 kg as6 (R); Height 5 ft. 6 in. (R); Pain 6/10; 18:29 Body Mass Index 25.34 (71.21 kg, 167.64 cm) as6 18:29 Pain Scale: Adult as6 ED Course: 18:18 Patient arrived in ED. mg5 18:19 Dioni Thrasher MD is Attending Physician. jennie 18:33 Triage completed. as6 18:34 Arm band placed on. as6 18:45 Sara Tran RN is Primary Nurse. kc6 19:00 Report given to Joanna Hopkins RN. kc6 19:00 Warm blanket given. Pillow given. kc6 19:00 Inserted saline lock: 20 gauge in right antecubital area, using aseptic technique. kc6 Blood collected. 19:01 Patient has correct armband on for positive identification. Bed in low position. Call kc6 light in reach. Side rails up X 1. Client placed on continuous cardiac and pulse oximetry monitoring. NIBP monitoring applied. 19:08 Chest Pa And Lat (2 Views) XRAY In Process Unspecified. EDMS 19:41 Julio Nelson MD is Referral Physician. jennie 20:15 Primary Nurse role handed off by Sara Tran, LUIS ANTONIO rv1 21:20 Provided Education on: upper respiratory infection. cp4 21:20 No provider procedures requiring assistance completed. intact, bleeding controlled, No cp4 redness/swelling at site. Pressure dressing applied. Administered Medications: 18:43 CANCELLED (Duplicate Order): rocephin (ceftriaxone)1 grams IM once jennie 18:44 CANCELLED (Duplicate Order): mftloacqqu51 mg PO once jennie 18:44 CANCELLED (Duplicate Order): dexamethasone 10 mg IM once [facility] 19:54 Drug: Ondansetron IVP 8 mg IVP once; over 2 minutes Route: IVP; Site: right antecubital;cp4 20:02 Follow up: Response: No adverse reaction cp4 20:02 Drug: Rocephin IV 1 grams IV at per protocol once; Given slow IV push per pharmacy cp4 instructions Route: IV; Rate: per protocol; Site: right antecubital; 20:03 Follow up: Response: No adverse reaction; IV Status: Completed infusion cp4 20:03 Drug: Ipratropium Inhalation Aerosol 0.5 mg Inhalation once Route: Inhalation; cp4 20:03 Drug: NS 0.9% IV 1000 ml IV at 1 bolus Per protocol; 1000 mL bolus Route: IV; Rate: 1 cp4 bolus; Site: right antecubital; 20:46 Follow up: Response: No adverse reaction; IV Status: Completed infusion cp4 20:03 Drug: predniSONE PO 40 mg PO once Route: PO; cp4 20:03 Follow up: Response: No adverse reaction cp4 20:03 Drug: Decadron - Dexamethasone IVP 10 mg IVP once Route: IVP; Site: right antecubital; cp4 20:03 Follow up: Response: No adverse reaction cp4 20:04 Drug: AZITHromycin PO 500 mg PO once Route: PO; cp4 20:04 Follow up: Response: No adverse reaction cp4 20:04 Drug: Levalbuterol Inhalation 3.75 mg Inhalation once Route: Inhalation; cp4 Medication: 21:35 VIS not applicable for this client. cp4 Outcome: 19:41 Discharge ordered by . jennie 21:20 Discharged to home ambulatory, cp4 21:20 Condition: stable 21:20 Discharge instructions given to patient, Instructed on discharge instructions, follow up and referral plans. medication usage, Demonstrated understanding of instructions, follow-up care, medications, Prescriptions given X 5 23:15 Patient left the ED. as6 Signatures: Dispatcher [employer] EDDioni Suero MD MD cha Slawson, Ashby RN RN as6 Sara Tran RN RN [id number] Padmini Land [facility] Sylvia Griffin 5 Aniya Hopkins cp4
--- NOTE | 2023-08-10 19:42 | EDPHYS ---
Physician Documentation [facility] Name: Mira Trinidad Age: 37 yrs Sex: Female : 1985 Arrival Date: 08/10/2023 Time: 18:12 Bed IW10 Private MD: ED Physician Dioni Thrasher HPI: 08/09 19:01 This 37 yrs old Female presents to ER via Wheelchair with complaints of Flu jennie Symptoms. 19:01 The patient has shortness of breath at rest, with light activity. Onset: The jennie symptoms/episode began/occurred 3 day(s) ago. Duration: The symptoms are continuous, and are steadily getting worse. The patient's shortness of breath is aggravated by exertion, is alleviated by nebulizer treatment, rest, application of supplemental oxygen. The patient presents to the emergency department with wheezing, Current therapy: None. Modifying factors: The symptoms are alleviated by cool environment, the symptoms are aggravated by exertion, talking. Associated signs and symptoms: Pertinent positives: productive cough. Severity of symptoms: At their worst the symptoms were moderate in the emergency department the symptoms have improved moderately. The patient or guardian reports cough, difficulty breathing, flu symptoms, arthralgias, low-grade fever, myalgias. PROFILE [employer] TAPE CONTROL: 18:34 LMP N/A - Hysterectomy, Not as6 Historical: - Allergies: 18:33 Morphine; as6 18:33 Haloperidol; as6 18:33 Augmentin; as6 - PMHx: 18:33 Asthma; Bipolar disorder; osteoarthritis; as6 - PSHx: 18:33 Cholecystectomy; Total abdominal hysterectomy; as6 - Immunization history:: Adult Immunizations not up to date. - Infectious Disease History:: Denies. - Social history:: Smoking status: Patient reports the use of cigarette tobacco products, smokes one-half pack cigarettes per day. - Family history:: not pertinent. - Hospitalizations: : No recent hospitalization is reported. ROS: 19:01 Constitutional: Negative for fever, chills, and weight loss, Eyes: Negative for injury, jennie pain, redness, and discharge, ENT: Negative for injury, pain, and discharge, Neck: Negative for injury, pain, and swelling, Abdomen/GI: Negative for abdominal pain, nausea, vomiting, diarrhea, and constipation, Back: Negative for injury and pain, : Negative for injury, bleeding, discharge, and swelling, MS/Extremity: Negative for injury and deformity, Skin: Negative for injury, rash, and discoloration, Neuro: Negative for headache, weakness, numbness, tingling, and seizure, Psych: Negative for depression, anxiety, suicide ideation, homicidal ideation, and hallucinations, Allergy/Immunology: Negative for hives, rash, and allergies, Endocrine: Negative for neck swelling, polydipsia, polyuria, polyphagia, and marked weight changes, Hematologic/Lymphatic: Negative for swollen nodes, abnormal bleeding, and unusual bruising, 19:01 Cardiovascular: Positive for palpitations, 19:01 Respiratory: Positive for cough, shortness of breath, wheezing, inspiratory, expiratory, Exam: 19:01 Constitutional: This is a well developed, well nourished patient who is awake, alert, jennie and in no acute distress. Head/Face: Normocephalic, atraumatic. Eyes: Pupils equal round and reactive to light, extra-ocular motions intact. Lids and lashes normal. Conjunctiva and sclera are non-icteric and not injected. Cornea within normal limits. Periorbital areas with no swelling, redness, or edema. ENT: Nares patent. No nasal discharge, no septal abnormalities noted. Tympanic membranes are normal and external auditory canals are clear. Oropharynx with no redness, swelling, or masses, exudates, or evidence of obstruction, uvula midline. Mucous membranes moist. Neck: Trachea midline, no thyromegaly or masses palpated, and no cervical lymphadenopathy. Supple, full range of motion without nuchal rigidity, or vertebral point tenderness. No Meningismus. Chest/axilla: Normal chest wall appearance and motion. Nontender with no deformity. No lesions are appreciated. Cardiovascular: Regular rate and rhythm with a normal S1 and S2. No gallops, murmurs, or rubs. Normal PMI, no JVD. No pulse deficits. Abdomen/GI: Soft, non-tender, with normal bowel sounds. No distension or tympany. No guarding or rebound. No evidence of tenderness throughout. Back: No spinal tenderness. No costovertebral tenderness. Full range of motion. Pelvic Exam: Normal external genitalia. Speculum exam with closed cervical os, no discharge or bleeding noted. Bimanual exam with normal adnexa, no adnexal or cervical motion tenderness. Normal uterus. Skin: Warm, dry with normal turgor. Normal color with no rashes, no lesions, and no evidence of cellulitis. MS/ Extremity: Pulses equal, no cyanosis. Neurovascular intact. Full, normal range of motion. Neuro: Awake and alert, GCS 15, oriented to person, place, time, and situation. Cranial nerves II-XII grossly intact. Motor strength 5/5 in all extremities. Sensory grossly intact. Cerebellar exam normal. Normal gait. 19:01 Respiratory: the patient does not display signs of respiratory distress, Respirations: no acute changes, Breath sounds: bronchial sounds, decreased breath sounds, rhonchi, wheezing: inspiratory expiratory Respiratory rate: 18 Vital Signs: 18:29 BP 139 / 93; Pulse 115; Resp 18 S; Temp 99(TE); Pulse Ox 98% on R/A; Weight 71.21 kg as6 (R); Height 5 ft. 6 in. (R); Pain 6/10; 18:29 Body Mass Index 25.34 (71.21 kg, 167.64 cm) as6 18:29 Pain Scale: Adult as6 MDM: 18:19 Patient medically screened. [facility] 19:05 Differential diagnosis: Anxiety Reaction asthma, Bronchitis CHF exacerbation, Chronic jennie Obstructive Pulmonary Disease acute asthma, exercise-induced asthma, reactive airway, CHF, Myocardial Infarction pneumonia, Pneumothorax Psychogenic. Antibiotic administration: The patient is discharged and will get outpatient antibiotics, Zithromax. Differential Diagnosis: Obstructed Airway Bronchitis Influenza Upper Respiratory Infection Sinusitis Pharyngitis Asthma Exacerbation Viral Syndrome Pneumonia. Immunization status:. Data reviewed: vital signs, nurses notes, lab test result(s), EKG. Consideration of Admission/Observation Escalation of care including admission/observation considered. I considered the following discharge prescriptions or medication management in the emergency department Medications were administered in the Emergency Department. See MAR. Independent interpretation of the following test(s) in the Emergency Department X-Ray: My interpretation is cxr. Test considered but Not performed: EKG: no ekg. Historians other than the Patient: Spouse/Significant Other: well informed. Care significantly affected by the following chronic conditions: asthma, bipolar do,asthma, tobacco abuse. 08/09 18:21 Order name: SARS RAPID; Complete Time: 19:37 [facility] 08/09 18:21 Order name: Flu; Complete Time: 19:41 [facility] 08/09 18:21 Order name: Strep; Complete Time: 19:37 [facility] 08/09 18:45 Order name: CBC with Diff; Complete Time: 19:37 [facility] 08/09 18:45 Order name: Comprehensive Metabolic Panel; Complete Time: 19:37 [facility] 08/09 19:27 Order name: Throat Culture EDTN 08/09 18:43 Order name: Chest Pa And Lat (2 Views) XRAY jennie Administered Medications: 18:43 CANCELLED (Duplicate Order): rocephin (ceftriaxone)1 grams IM once [facility] 18:44 CANCELLED (Duplicate Order): [id number] mg PO once jennie 18:44 CANCELLED (Duplicate Order): dexamethasone 10 mg IM once [facility] 19:54 Drug: Ondansetron IVP 8 mg IVP once; over 2 minutes Route: IVP; Site: right antecubital;cp4 20:02 Follow up: Response: No adverse reaction cp4 20:02 Drug: Rocephin IV 1 grams IV at per protocol once; Given slow IV push per pharmacy cp4 instructions Route: IV; Rate: per protocol; Site: right antecubital; 20:03 Follow up: Response: No adverse reaction; IV Status: Completed infusion cp4 20:03 Drug: Ipratropium Inhalation Aerosol 0.5 mg Inhalation once Route: Inhalation; cp4 20:03 Drug: NS 0.9% IV 1000 ml IV at 1 bolus Per protocol; 1000 mL bolus Route: IV; Rate: 1 cp4 bolus; Site: right antecubital; 20:46 Follow up: Response: No adverse reaction; IV Status: Completed infusion cp4 20:03 Drug: predniSONE PO 40 mg PO once Route: PO; cp4 20:03 Follow up: Response: No adverse reaction cp4 20:03 Drug: Decadron - Dexamethasone IVP 10 mg IVP once Route: IVP; Site: right antecubital; cp4 20:03 Follow up: Response: No adverse reaction cp4 20:04 Drug: AZITHromycin PO 500 mg PO once Route: PO; cp4 20:04 Follow up: Response: No adverse reaction cp4 20:04 Drug: Levalbuterol Inhalation 3.75 mg Inhalation once Route: Inhalation; cp4 Disposition Summary: 08/10/23 19:41 Discharge Ordered Notes: Location: Home jennie Problem: new jennie Symptoms: have improved jennie Condition: Stable jennie Diagnosis - Acute upper respiratory infection, unspecified jennie - Tobacco abuse counseling jennie - Tobacco use jennie - Acute bronchospasm jennie - COPD/ Chronic obstructive pulmonary disease with (acute) exacerbation jennie Followup: jennie - With: Private Physician - When: 2 - 3 days - Reason: Recheck today's complaints, Continuance of care, Re-evaluation by your physician Followup: jennie - With: Julio Nelson MD - When: 2 - 3 days - Reason: Recheck today's complaints, Re-evaluation by your physician Discharge Instructions: - Discharge Summary Sheet jennie - Bronchospasm, Adult jennie - Steps to Quit Smoking jennie - Health Risks of Smoking jennie - Upper Respiratory Infection, Adult jennie - Cool Mist Vaporizer jennie - Upper Respiratory Infection, Adult, [id number] jennie - Asthma, Adult, [id number] jennie - Steps to Quit Smoking, [id number] jennie - Cough, Adult, [id number] jennie - Cough, Adult [facility] Forms: - Medication Reconciliation Form jennie - Antibiotic Education jennie - Prescription Opioid Use [facility] - Patient Portal Instructions [facility] - Leadership Thank You Letter [facility] Prescriptions: - albuterol sulfate 90 mcg/actuation Inhalation HFA Aerosol Inhaler - inhale 2 puff INHALATION route every 4-6 hours; 1 unit; Refills: 0, Product [facility] Selection Permitted - ondansetron 4 mg Oral Tablet,disintegrating - take 1 tablet ORAL route every 8 to 12 hours for 5 days; 20 tablet; Refills: 0, [facility] Product Selection Permitted - Tessalon Perles 100 mg Oral capsule - take 2 capsule ORAL route every 8 hours As needed; 30 capsule; Refills: 0, [facility] Product Selection Permitted - Prednisone 20 mg Oral Tablet - take 2 tablets ORAL route once daily for 5 days; 10 tablet; Refills: 0, Product [facility] Selection Permitted - Zithromax 500 mg Oral Tablet - take 1 tablet ORAL route once daily for 5 days; 5 tablet; Refills: 0, Product [facility] Selection Permitted Signatures: Dispatcher [employer] EDDioni Suero MD MD cha Slawson, Ashby, RN RN as6 Aniya Hopkins cp4 Corrections: (The following items were deleted from the chart) 18:21 18:21 SARS-COV-2 Antigen Rapid+I.LAB.BRZ ordered. EDMS EDMS 18:21 18:21 Influenza Screen (A \T\ B)+BA.LAB.BRZ ordered. EDMS EDMS 18: 18:21 Group A Streptococcus Rapid Sc+BA.LAB.BRZ ordered. EDMS EDMS 18:43 Rocephin (cefTRIAXone) IM 1 grams IM once ordered. [facility] 18:43 predniSONE PO 40 mg PO once ordered. [facility] 18:43 Dexamethasone IM 10 mg IM once ordered. [facility]
[2023-08-10] MEDS ORDERED: ONDANSETRON 4 MG/2 ML VIAL ONE (19:51)
--- NOTE | 2023-08-10 20:08 | RAD REPORT ---
EXAM DESCRIPTION: RAD - Chest Pa And Lat (2 Views) - 08/10/2023 7:07 pm CLINICAL HISTORY: COPD;Cough;Congestion COMPARISON: Chest Pa And Lat (2 Views) dated 02/05/2023; Chest Pa And Lat (2 Views) dated 05/20/2022; Chest Single View dated 09/22/2021; Chest Single View dated 12/16/2020 TECHNIQUE: PA and lateral views of the chest were obtained. FINDINGS: The lungs are clear. Heart size is normal and central vasculature is within normal limits. No pleural effusion or pneumothorax seen. No acute bony finding noted. IMPRESSION: No acute cardiopulmonary process.
[2023-08-10 23:37] VITALS: BP 139/93; TEMP 99; O2SAT 98
== END 2023-08-10 23:15 | disposition home or self-care (01) ==
LOC: ER 18:12
DX: J06.9 Acute upper respiratory infection, unspecified (principal); J98.01 Acute bronchospasm; J44.1 Chronic obstructive pulmonary disease with (acute) exacerbation; Z72.0 Tobacco use; Z71.6 Tobacco abuse counseling; Z11.52 Encounter for screening for COVID-19
CPT/HCPCS: 96361; 87070; 85025; 36415; 87081; 80053; 87804 ×2; 71046; 96375; 96374; 99285; 87811; J7512; J7614; J7644; J1100; J2405; J7030; J0696

== ENCOUNTER 2024-04-30 17:39 | Emergency (ER) | payer OTHER ==
--- OUTSIDE RECORDS SUMMARY | 2024-04-30 17:43 | XMS REPORT | Continuity of Care Document ---
Author Name Unknown Address [address] [facility] [place] [address] [facility] thconnect Address [address] [facility] [place] [address] Care Team Providers Care Wallpaper Remover Steam Name Role Phone TAYLA_Amy Attending Clinician UnavailChaitanya Uriarte Attending Clinician Unavailable Vince Admitting Clinician UnavailChaitanya Uriarte Admitting Clinician Unavailable Payers Payer Name Policy Type Policy Number Effective Date Expirati on Date Source [facility] [id number] 2022 00:00:00 Problems Condition Name Condition Details [...] Active SV LOCKED JAW 06-11 00:00: 00 [facility] morphine DA Active SV SEVERE NAUSEA AND VOMITING; RASH 06-11 00:00: 00 [facility] clavulan ic acid DA Active SV GI UPSET - 00:00: 00 [facility] amoxicil brett DA Active SV GI UPSET 06-11 00:00: 00 [facility] haloperi dol DA Active SV LOCKED JAW 06-04 00:00: 00 [facility] DA Active SV SEVERE NAUSEA AND VOMITING; RASH 06-04 00:00: 00 [facility] clavulan ic acid DA Active SV GI UPSET 06-04 00:00: 00 [facility] amoxicil brett DA Active SV GI UPSET 06-04 00:00: 00 [facility] Social History Smoking Status Start Date Stop Date Source Heavy Tobacco Smoker [facility] Medications Ordered Medication Name Filled Medication Name Start Date Stop Date Current Medication? Ordering Clinician Indication Dosage Frequency Signature (SIG) Comments Components Source acetaminoph en 300 mg-codeine 30 mg tablet TAKE 1-2 TAB(S) BY ORAL ROUTE EVERY 4-6 HOURS NEEDED FOR PAIN acetaminoph en 300 mg-codeine 30 mg tablet TAKE 1-2 TAB(S) BY ORAL ROUTE EVERY 4-6 HOURS NEEDED FOR PAIN No acetaminop hen 300 mg-codeine 30 mg tablet TAKE 1-2 TAB(S) BY ORAL ROUTE EVERY 4-6 HOURS NEEDED FOR PAIN [facility] azithromyci n 500 mg tablet azithromyci n 500 mg tablet No azithromyc in 500 mg tablet [facility] benzonatate 100 mg capsule benzonatate 100 mg capsule No benzonatat e 100 mg capsule [facility] ondansetron 4 mg disintegrat ing tablet ondansetron 4 mg disintegrat ing tablet No ondansetro n 4 mg disintegra ting tablet [facility] methylpredn isolone 4 mg tablets in a dose pack methylpredn isolone 4 mg tablets in a dose pack No methylpred nisolone 4 mg tablets in a dose pack [facility] nicotine 21 mg/24 hr daily transdermal patch nicotine 21 mg/24 hr daily transdermal patch No nicotine 21 mg/24 hr daily transderma l patch [facility] albuterol sulfate HFA 90 mcg/actuati on aerosol [...] NEEDED [facility] Procedures Procedure Date / Time Performed Performing Clinicia n Source XR, knee, 1 or 2 view 2023-12-03 00:00:00 [facility] XR, knee, 1 or 2 view 2023-10-10 00:00:00 [facility] XR, knee, 1 or 2 view 2023-09-12 00:00:00 [facility] XR, knee, 1 or 2 view 2023-08-15 00:00:00 [facility] XR, knee, 1 or 2 view 2023-07-18 00:00:00 [facility] XR, knee, 1 or 2 view 2023-07-04 00:00:00 [facility] Encounters Start Date/Time End Date/Time Encounter Type Admission Type Attending Clinicians Care Facility Care Department Encounter ID Source 2023-12-03 00:00:00 2023-12-03 00:00:00 Chaitanya Chapin MD: [address] [place] [address] , Ph. [phone] [facility] [place] [facility]Of[facility] [address] [place] [id number] [facility] 2023-10-10 00:00:00 2023-10-10 00:00:00 Chaitanya Chpain MD: [address] [place] [phone] , Ph. [phone] [place] [facility] [place] [facility]Of[facility] [address] [id number] [facility] 2023-09-12 00:00:00 2023-09-12 00:00:00 Chaitanya Chapin MD: [address] [place] [phone] , Ph. [phone] [place] [facility] [place] [facility] F[facility]_Ofc [address] [id number] [facility] 2023-08-15 00:00:00 2023-08-15 00:00:00 Chaitanya Chapin MD: [address] [place] [phone] , Ph. [phone] [place] [facility] [place] [facility] [place] [id number] [facility] 2023-07-18 00:00:00 2023-07-18 00:00:00 Chaitanya Chaipn MD: [address] [place] [phone] , Ph. [phone] [place] [facility] [place] [facility] [address] [place] [id number] [facility] 2023-07-04 00:00:00 2023-07-04 00:00:00 Chaitanya Chapin MD: [address] [place] [phone] , Ph. [phone] [place] [facility] [place] - FOG_Ofc [address] [id number] [facility] 2023-06-20 00:00:00 2023-06-20 00:00:00 Chaitanya Chapin MD: [address] [place] [phone] , Ph. [phone] [place] [facility] [place] - FOG_Ofc [address] [id number] [facility] 2023-06-19 00:00:00 2023-06-19 00:00:00 [facility] [id number] [facility] 2023-06-12 10:34:00 2023-06-14 18:52:00 Inpatient Chaitanya Lowe [facility] [id number] [facility] 2023-06-12 00:00:00 2023-06-12 00:00:00 Chaitanya Chapin MD: [address] [place] [address] , Ph. [phone] [facility] [place] [facility] [place] - FOG_Surgery [id number] [facility] 2023-06-11 00:00:00 2023-06-11 00:00:00 Outpatient Adrianna [facility] [id number] [facility] 2023-06-01 00:00:00 2023-06-01 00:00:00 Chaitanya Chapin MD: [address] [place] [address] , Ph. [phone] FOGTra Maoy [place] - [facility] [place] - [facility]c [place] [id number] [facility] 2023-05-31 00:00:00 2023-05-31 00:00:00 Outpatient FO[facility] [id number] [facility] Results Test Description Test Time Test Comments Results Result Co mments Source CBC W/AUTO [id number] 05:58:00* Test Item Value Reference Range Interpretation [...] N CBC W Auto Differential panel - [id number] 04:00:00* Test Item Value Reference Range Interpretation [...] performing lab: (test code = performing lab:) [facility] [id number] 04:00:00* Test Item Value Reference Range Interpretation [...] performing lab: (test code = performing lab:) [facility] [id number] 17:13:00* Test Item Value Reference Range Interpretation Comme [facility] HCG SERUM (test code = HCG) 9.0 [...] to interpret this result as normal/abnormal. HCG [id number] 17:13:00* Test Item Value Reference Range Interpretation Comme [facility] HCG SERUM (test code = HCG) 9 [...] milliInternationalunits/mL SHOULD BE CONSIDERED NEGATIVE C REACTIVE [id number] 22:26:00* Test Item Value Reference Range Interpretation Comme nts C REACTIVE PROTEIN (test cod e = CRP) 2.21 mg/dL < 0.3 H ACUTE HEPATITIS [id number] 22:26:00* Test Item Value Reference Range Interpretation [...] code = HIV1AB) NONREACTIVE NONREACTIVE DONE AT: [address] [id number] by [employer] Gen HIV Ag/Ab Combo Screen ACUTE HEPATITIS [id number] 22:25:00* Test Item Value Reference Range Interpretation [...] AB HIV 1 2 (test code = ZZM09BV) NONREACTIVE NONREACTIVE Done by [employer] 4[employer] Gen HIV Ag/Ab Combo Screen PROTHROMBIN [id number] 16:43:00* Test Item Value Reference Range Interpretation [...] intravascular valves IS PATIENT ON ANTICOAGULANTS ? ARas Lab been notified if Patient is on Heparin Drip? NOTHROMBOPLASTIN TIME [id number] 16:43:00* Test Item Value Reference Range Interpretation Comme nts PTT ACTIVATED (test code = APTT) 31.3 secs 25.1-36.5 N IS PATIENT ON ANTICOAGULANTS ? NHas Lab been notified if Patient is on Heparin Drip? NOSED [id number] 16:36:00* Test Item Value Reference Range Interpretation Comme nts SED RATE (test code = SEDW) 36 mm/hr 0-20 H HCG SERUM [id number] 16:00:00* Test Item Value Reference Range Interpretation Comme nts HCG SERUM QUAL (test code = HCGQL) POSITIVE NEGATIVE A Reported to SHELBY Morley AT DR CHAPIN'S OFFICEby Gaby, on 06/05/23 at 1529. COMPREHENSIVE METABOLIC [id number] 16:00:00* Test Item Value Reference Range Interpretation [...] = A/G) 1.2 0.7-2.0 N CBC W/AUTO [id number] 15:05:00* Test Item Value Reference Range Interpretation [...] N CBC W Auto Differential panel - [id number] 14:30:00* Test Item Value Reference Range Interpretation [...] performing lab: (test code = performing lab:) [facility] - Serum or [id number] 14:30:00* Test Item Value Reference Range Interpretation [...] performing lab: (test code = performing lab:) [facility] serum [id number] 14:30:00* Test Item Value Reference Range Interpretation Comme nts HCG serum qual (test code = HCG serum qual) positive negative A performing lab[facility]test code = [id number] 14:30:00* Test Item Value Reference Range Interpretation Comme nts sed rate (test code = sed rate) 36 mm/HR 0-20 H performing lab: (test code = performing lab:) [facility] (PT)2023-06-05 14:30:00* Test Item Value Reference Range Interpretation Comme nts prothrombin time patient (te st code = prothrombin time patient) 11.7 secs 9.4-12.5 international normal ratio ( test code = international normal ratio) 1.09 <2.0 performing lab: (test code = performing lab:) [facility] [id number] 14:30:00 * Test Item Value Reference Range Interpretation Comme nts PTT activated (test code = P TT activated) 31.3 secs 25.1-36.5 performing lab: (test code = performing lab:) [facility] reactive [id number] 14:30:00* Test Item Value Reference Range Interpretation Comme nts C reactive protein (test cod e = C reactive protein) 2.21 mg/dL < 0.3 H performing lab: (test code = performing lab:) [facility] hepatitis [id number] 14:30:00* Test Item Value Reference Range Interpretation [...] performing lab: (test code = performing lab:) [facility] HIV 14:30:00* Test Item Value Reference Range Interpretation Comme nts Ab HIV 1 (test code = Ab HIV 1) nonreactive nonreactive performing lab: (test code = performing lab:) [facility] Notes Date/Time Note Provider Source 2023-07-03 12:56:00 [facility] ([facility]) Discharge Summary REPORT#:[id number] REPORT STATUS: Signed REPORT INITIALIZATION DATE:07/03/23 TIME: 125 PATIENT: JOHN TRINIDAD UNIT #: [id number] ROOM/BED: [address] : [address] AGE: 37 SEX: F ATTEND: Chaitanya Chapin MD ADM AUTHOR: Yanira Greer REPT SERVICE DT/TIME: 07/03/23 1256 * ALL edits or amendments must be made on the electronic/computer document * General Information Date of admission: Observation Start Date: 06/12/23 Date of admission: 06/12/23 Discharge date: 06/14/23 Discharge diagnosis: Left tibia bicondylar plateau fracture Hospital course: On 06.12.23 the patient underwent ORIF of her left tibia bicondylar plateau fracture. Consultants: internal medicine, pain management Pt. condition on discharge: stable Allergies: Allergies: haloperidol (From HALDOL) (Coded, Severe, LOCKED JAW, 06/12/23) morphine (Coded, Severe, SEVERE NAUSEA AND VOMITING; RASH, 06/12/23) amoxicillin (From AUGMENTIN) (Coded, Severe, GI UPSET, 06/12/23) clavulanic acid (From AUGMENTIN) (Coded, Severe, GI UPSET, 06/12/23) Med Rec Med Rec Discharge meds: Stop taking the following medications: IBUPROFEN (MOTRIN) 800 MG TAB 800 MILLIGRAM ORAL THREE TIMES DAILY NEEDED. as needed for PAIN/ARTHRITIS Continue taking these medications: ALBUTEROL (ALBUTEROL HFA 90 MCG/ACT) 90 MCG INHALER [...] TOPICAL DAILY. Start taking the following new medications: ASPIRIN (ASPIRIN) 81 MG TAB.CHEW 81 MILLIGRAM ORAL DAILY. Qty = 30 No Refills Discharge Instructions PCP )( Discharge to: Home/Self Care Discharge Instructions Additional Discharge Routines: Wound/Dressing Care, Add. instructions )( Diet: Regular )( Activity: No Weight Bearing Left )( Wound/dressing care: Keep wound clean and dry, Leave dressing in place )( Additional instructions: Take 81 mg ASA daily once home for DVT prophylaxis at 1257 at 1247 RPT #:[id number] END OF REPORT [facility] 2023-06-14 10:34:00 [facility] ([facility]) Clinical Note REPORT#:[id number] REPORT STATUS: Signed REPORT INITIALIZATION DATE:06/14/23 TIME: 1034 PATIENT: JOHN TRINIDAD UNIT #: [id number] ROOM/BED: [address] : [address] AGE: 37 SEX: F ATTEND: Chaitanya Chapin MD ADM AUTHOR: Samson Campos MD REPT SERVICE DT/TIME: 06/14/23 1034 * ALL edits or amendments must be made on the electronic/computer document * Clinical Note Note: [facility] Samson Jones M.D. (cell text [phone]) Assessment/Plan 1.) Anemia of acute blood loss- .Hgb 12.1 -06/13/23, asymptomatic. 2.) POD#2 ORIF Left Tibial Plateau Fx- .acute multi-modal pain control and followup. Anticoagulation as per Dr. Chapin. NWB to LLE. Requests walker. 3.) Bipolar Hypertension- .follow BP and hold Rxs if SBP<120. 4.) OsteoArthritis Asthma- .continue on Rx. * OK for DISCHARGE per Internal Medicine, feeling much better. Prior Events/Overnight: Uneventful. Chief Complaint: No significant complaints. Objective Vital Signs: Date Time Temp Pulse Resp B/P B/P Pulse O2 O2 Flow FiO2 Mean Ox Delivery Rate 06/13 0701 97.0 97 18 110/69 82.8 99 06/13 0325 100 Nasal 2 28 cannula 06/13 0150 97.0 101 16 130/77 94.9 100 06/12 2258 Nasal 3 cannula 06/12 2206 98.1 93 16 123/79 93.9 99 / 1947 97.7 91 16 124/81 95.6 99 06/12 1935 98 Nasal 2 28 cannula 06/12 1504 97.7 85 16 131/83 98.8 98 Room air 06/12 1500 95 Nasal 3 cannula Gen: Alert, oriented, in mild discomfort Neck: No Masses, No Thyromegaly- CV: Regular Rate Rhythm / Edema- no significant Resp: Clear To Ascultation / Normal Respiratory Effort ABD: NonTender / NonDistended MS/Skin: No sign of compartment syndrome / +toes DF/PF Other: Labs/X-ray: none Samson Jones at 1217 RPT #:[id number] END OF REPORT [facility] 2023-06-14 08:43:00 [facility] ([facility]) Orthopaedic Progress Note REPORT#:[id number] REPORT STATUS: Signed REPORT INITIALIZATION DATE:06/14/23 TIME: 842 PATIENT: JOHN TRINIDAD UNIT #: [id number] ROOM/BED: [address] : [address] AGE: 37 SEX: F ATTEND: Chaitanya Chapin MD ADM AUTHOR: Yanira Greer REPT SERVICE DT/TIME: 06/14/23 0843 * ALL edits or amendments must be made on the electronic/computer document * Subjective Patient reports: Yes: ambulating with therapy, pain. Objective VS: Last Documented: Result Date Time Pulse Ox 99 06/13 700 B/P 110/69 06/13 700 B/P Mean 82.8 06/13 700 Temp 36.1 06/13 700 Pulse 97 06/13 700 Resp 18 06/13 700 FiO2 28 06/13 324 O2 Delivery Nasal cannula 06/13 324 O2 Flow Rate 2 06/13 324 PATIENT WEIGHT: Weight (lb): 165 Weight (oz): 5.55 Weight (kg): 74.843 Medications: Active Meds + DC'd Last 24 Hrs Magnesium Hydroxide (MILK OF MAGNESIA) 30 ML BEDTIME [...] Hydromorphone HCl (HYDROmorphone 10 mg/NS 50 mL RETAIL WIRELESS SALES REPRESENTATIVE) 50 ML ASDIR IV (CKD ) IV Miscellaneous Supplies (RETAIL WIRELESS SALES REPRESENTATIVE WYATT) 1 EA ASDIR MISC Naloxone HCl (NARCAN) 0.1 - 0.2 MG ANES ASDIR IV Ondansetron HCl (ZOFRAN) 4 MG ANES Q4H PRN PRN IV Promethazine HCl (PHENERGAN) 6.25 MG ANES ASDIR PRN IM Acetaminophen (TYLENOL) 650 MG Q4H PRN PRN PO Tramadol HCl (ULTRAM) 50 MG Q4H PRN PRN PO Tramadol HCl (ULTRAM) 100 MG Q4H PRN PRN PO Physical Exam General appearance: alert, oriented, no acute distress Extremities: LLE with dressings C/D/I. NVI. + ankle DF. Diagnosis, Assessment Plan Free text A P: POD#2 s/p left tibia bicondylar plateau ORIF - DVT prophylaxis - Pain control - PT - NWB to LLE - NVI - Take 81 mg ASA daily once home for DVT prophylaxis. - D/c held yesterday due to pain. Plan for d/c today if pain controlled. at 0846 at 1234 RPT #:[id number] END OF REPORT [facility] 2023-06-13 10:48:00 [facility] ([facility]) Clinical Note REPORT#:[id number] REPORT STATUS: Signed REPORT INITIALIZATION DATE:06/13/23 TIME: 1047 PATIENT: JOHN TRINIDAD UNIT #: [id number] ROOM/BED: [address] : 83 AGE: 37 SEX: F ATTEND: Chaitanya Chapin MD ADM AUTHOR: Samson Campos MD REPT SERVICE DT/TIME: 06/13/23 1048 * ALL edits or amendments must be made on the electronic/computer document * See Addendum Clinical Note Note: [facility] Samson Jones M.D. (cell text [phone]) Assessment/Plan 1.) Anemia of acute blood loss- .Hgb 12.1, asymptomatic. 2.) POD#1 ORIF Left TIbial Plateau Fx- .acute multi-modal pain control and followup. Anticoagulation as per Dr. Chapin. 3.) BiPolarHypertension- .follow BP and hold Rxs if SBP<120. 4.) OsteoArthritis Asthma Nicotine use- .continue on Rx. Counseling on nicotine cessation provided, she quit for 10 months last year. Prior Events/Overnight: Uneventful. Chief Complaint: No significant complaints. Objective Vital Signs: Date Time Temp Pulse Resp B/P B/P Pulse O2 O2 Flow FiO2 Mean Ox Delivery Rate 06/12 1124 98.2 120 16 136/84 101.5 100 Nasal cannula 06/12 0653 97.0 103 16 122/84 96.8 99 Room air 06/12 0306 97.7 103 14 125/82 96.4 98 Room air 04/0 Nasal 3 cannula /8 98.2 113 18 122/77 92.1 99 Simple 5 mask /2116 97.5 99 14 124/72 89.4 98 Room air /1952 95.5 100 14 133/83 99.5 98 Nasal 3 cannula / 191 97.6 108 16 132/83 98 Nasal 3 cannula 04/02 1900 107 19 143/90 97 Nasal 3 cannula 04/02 1845 103 16 151/96 98 Nasal 3 cannula 04/02 1843 92 18 148/93 97 Nasal 3 cannula 04/02 1830 94 15 163/97 97 Nasal 3 cannula 04/ 1829 Nasal 3 cannula 04/ 1815 103 19 158/103 97 Simple 8 mask / 1800 82 18 150/91 98 Simple 8 mask 02 1752 Simple 8 mask / 1745 86 18 106/60 94 Simple 8 mask / 1741 98.2 85 12 98/54 94 Simple 8 mask Gen: Alert, oriented, in mild discomfort Neck: No Masses, No Thyromegaly- CV: Regular Rate Rhythm / Edema- no significant Resp: Clear To Ascultation / Normal Respiratory Effort ABD: NonTender / NonDistended MS/Skin: No sign of compartment syndrome / +ankle DF/PF Other: Labs/X-ray: Laboratory Tests: 06/12 0400 Chemistry Sodium [...] (Auto) (20 - 40 %) 12.2 L [place] % (Auto) (3 - 10 %) 7.4 Eos % (Auto) (1 - 5 %) 0.1 L Baso % (Auto) (0.0 - 1.1 %) 0.2 Neut # (Auto) (2.00 - 7.50 K/mm3) 11.36 H Lymph # (Auto) (1.50 - 4.00 K/mm3) 1.74 [place] # (Auto) (0.2 - 0.8 K/mm3) 1.06 H Eos # (Auto) (0.04 - 0.4 K/mm3) 0.01 L Baso # (Auto) (0.02 - 0.10 K/mm3) 0.03 Add Manual Diff (MANUAL DIFF) NO Nucleated RBC % (0 - 0 %) 0 Samson Jones M.D. at 1300 Addendum 1: 06/13/23 1725 by Samson Campos MD Patient is currently medically stable. at 1726 RPT #:[id number] END OF REPORT [facility] 2023-06-13 10:39:00 [facility] ([facility]) Op/Inv Procedure Note - Brief REPORT#:[id number] REPORT STATUS: Signed REPORT INITIALIZATION DATE:06/13/23 TIME: 1039 PATIENT: JOHN TRINIDAD UNIT #: [id number] ROOM/BED: [address] : [birth year] AGE: 37 SEX: F ATTEND: Chaitanya Chapin MD ADM AUTHOR: Yanira Greer REPT SERVICE DT/TIME: 06/12/23 1730 * ALL edits or amendments must be made on the electronic/computer document * Op/Inv Proc Note - Brief TEXT Brief Op/Inv Procedure Note Note details: DOS: 06.12.23 *PRE-PROCEDURE DIAGNOSIS: Left tibia bicondylar fracture *POST-PROCEDURE DIAGNOSIS: Same *PROCEDURE(S) PERFORMED: ORIF left tibia plateau *PRIMARY SURGEON: Chaitanya Chapin *REPRESENTATIVE PERSONAL SERVICE(S): Yanira Greer PA-C ANESTHETIC: General *ESTIMATED BLOOD LOSS in ml's: None *SPECIMEN(S) REMOVED: None *COMPLICATIONS: None DRAIN(S): None[] TUBE(S): None[] IMPLANT(S): None[] FLUIDS: [] URINE OUTPUT: [] *FINDINGS: Medial and lateral Synthes plates placed. DISPOSITION: To PACU at 1049 at 1234 RPT #:[id number] END OF REPORT [facility] 2023-06-13 10:23:00 [facility] ([facility]) Orthopaedic Progress Note REPORT#:[id number] REPORT STATUS: Signed REPORT INITIALIZATION DATE:06/13/23 TIME: 1023 PATIENT: JOHN TRINIDAD UNIT #: [id number] ROOM/BED: [address] : [birth year] AGE: 37 SEX: F ATTEND: Chaitanya Chapin MD ADM AUTHOR: Yanira Greer REPT SERVICE DT/TIME: 06/13/23 1023 * ALL edits or amendments must be made on the electronic/computer document * Subjective Patient reports: Yes: pain. No: ambulating with therapy. Objective VS: Last Documented: Result Date Time Pulse Ox 99 06/12 652 B/P 122/84 06/12 652 B/P Mean 96.8 06/12 652 O2 Delivery Room air 06/12 652 Temp 36.1 06/12 652 Pulse 103 06/12 652 Resp 16 06/12 652 O2 Flow Rate 3 06/11 2230 PATIENT WEIGHT: Weight (lb): 165 Weight (oz): 5.55 Weight (kg): 75.000 Medications: Active Meds + DC'd Last 24 Hrs Magnesium Hydroxide (MILK OF MAGNESIA) 30 ML BEDTIME [...] 200 MG .STK-MED ONE IV (DC) Rocuronium Randolph (Rocuronium Randolph 10 mg/mL) 100 MG .STK-MED ONE IV (DC) Sodium Chloride (SODIUM CHLORIDE) 10 ML .STK-MED ONE IV (DC) Sugammadex Sodium (Bridion) 200 MG .STK-MED ONE IV (DC) Diphenhydramine HCl (BENADRYL) 12.5 MG ANES Q4H PRN PRN IV Diphenhydramine HCl (BENADRYL) 25 MG ANES BEDTIME PRN PRN PO Hydromorphone HCl (HYDROmorphone 10 mg/NS 50 mL RETAIL WIRELESS SALES REPRESENTATIVE) 50 ML ASDIR IV (CKD ) IV Miscellaneous Supplies (RETAIL WIRELESS SALES REPRESENTATIVE WYATT) 1 EA ASDIR MISC Naloxone HCl [...] (XYLOCAINE) 2 ML PREOP SUBQ (DC) Physical Exam General appearance: alert, oriented, no acute distress Extremities: LLE with dressings C/D/I. NVI. + ankle DF. Diagnosis, Assessment Plan Free text A P: POD#1 s/p left tibia bicondylar plateau ORIF - DVT prophylaxis - Pain control - PT - NWB to LLE - NVI - Plan for d/c home this afternoon if pain controlled and working well with PT. - Take 81 mg ASA daily once home for DVT prophylaxis. at 1025 at 1234 RPT #:[id number] [facility] OF [facility] 20:09:00 [facility] ([facility]) Clinical Note REPORT#:[id number] REPORT STATUS: Signed REPORT INITIALIZATION DATE:06/12/23 TIME: 2008 PATIENT: JOHN TRINIDAD UNIT #: [id number] ROOM/BED: [address] : [birth year] AGE: 37 SEX: F ATTEND: Chaitanya Chapin MD ADM AUTHOR: Samson Campos MD REPT SERVICE DT/TIME: 06/12/232008 * ALL edits or amendments must be made on the electronic/computer document * Clinical Note Note: [facility] Samson Jones MD (cell text [phone]) Internal Medicine Consult at request of : Dr. Chaitanya Chapin Chief Complaint: .left tibial plateau fracture HPI: 37 yo F is now s/p Left tibial plateau open reduction and internal fixation and bone graft by Dr. Chapin. Ms. Trinidad had a fall on 05/30/23 and sustained left bicondylar tibial fracture. Comorbidities: see below. PmHx: .OsteoArthritis, asthma, bipolar disease, IBS, back pain ALLERGY: Allergies: haloperidol (From HALDOL) (Coded, Severe, LOCKED JAW, 06/12/23) morphine (Coded, Severe, SEVERE NAUSEA AND VOMITING; RASH, 06/12/23) amoxicillin (From AUGMENTIN) (Coded, Severe, GI UPSET, 06/12/23) clavulanic acid (From AUGMENTIN) (Coded, Severe, GI UPSET, 06/12/23) Home Medications: Vital Signs: Date Time Temp Pulse Resp B/P B/P Pulse O2 O2 Flow FiO2 Mean Ox Delivery Rate 06/12 2147 98.2 113 18 122/77 92.1 99 Simple 5 mask 06/11 2116 97.5 99 14 124/72 89.4 98 Room air 06/11 1952 95.5 100 14 133/83 99.5 98 Nasal 3 cannula / 1915 97.6 108 16 132/83 98 Nasal [...] current smoker FHx: .No significant hx of DVT/PE. Alcohol: none Drugs: none Lives: with other family . . Vitals: Vital Signs: Date Time Temp Pulse Resp B/P B/P Pulse O2 O2 Flow FiO2 Mean Ox Delivery Rate 06/11 1952 95.5 100 14 133/83 99.5 [...] 103 19 158/103 97 Simple 8 mask 04/ 1800 82 18 150/91 98 Simple 8 mask 04/02 1752 Simple 8 mask 04/02 1745 86 18 106/60 94 Simple 8 mask 04/02 1741 98.2 85 12 98/54 94 Simple 8 mask 04/ 1125 98.0 111 21 131/97 98 Room air Gen: Alert, in moderate discomfort. EYE: Nl lids conjunctiva. ENT: Nl ears Nose, nl lips,. Neck: Supple, nl thyroid, No masses. CV: Regular Rate Rhythm, no heave or significant murmur. Edema- none RESP: Clear to Auscultation, normal Respiratory effort. ABD: Soft, NonDistended,. LYM: No significant cervical lymphadenopathy. MS: No sign of compartment syndrome, Knee is wrapped, NEURO: Nonfocal, grossly normal sensation of LE, +toes DF/PF . . Preop Labs(06/05/23): CBC:. Hgb 12.5, Plt 355, CHEM: Na 137, K 4.0, Cr0.82 (eGFR 93.3%), . Ekg: Normal sinus rhythm . (medium to high risk of complications or morbidity) (major surgery) (IV sedative, meds) . Assessment Plan 1.) Anemia of Acute Blood Loss- .will recheck tomorrow. 2.) S/p ORIF Left TIbial Plateau Fx- .acute multi-modal pain control and followup. Anticoagulation as per Dr. Chapin. 3.) BiPolarHypertension- .follow BP and hold Rxs if SBP<120. 4.) OsteoArthritis Asthma Nicotine use- .continue on Rx. Counseling on nicotine cessation to be provided. . Samson Jones M.D. Thanks! . . . . . G9902 - Patient screened for tobacco use AND identified as a tobacco USER G9906 Patient received tobacco cessation counseling. G8417 BMI documented as above normal parameters and a f/u plan is documented 1123F - [facility] disscussion - default code status while at [facility]. at 2325 RPT #:[id number] END OF REPORT HCATO 2023-06-05 14:21:00 [id number] [facility] [place] [address] [id number] PATIENT NAME: JOHN TRINIDAD ADMIT DATE: ACCOUNT NO: [id number] ROOM NO: AGE: 37 REPORT TYPE: ELECTROCARDIOGRAM SEX: F ADMITTING PHYSICIAN: ATTENDING PHYSICIAN:Chaitanya Chapin MD Order: [id number] Test Reason : PRE OP; SMOKER Test Date/Time Stamp: SunJun 05 2023 14:21:25 Blood Pressure : / mmHG Vent. Rate : 100 BPM Atrial Rate : 100 BPM P-R Int : 132 ms QRS Dur : 080 ms QT Int : 336 ms P-R-T Axes : 072 009 011 degrees QTc Int : 433 ms Normal sinus rhythm Normal ECG No previous ECGs available Confirmed by MALACHI JOE MD ([id number]) on 06/06/2023 2:32:30 PM Referred By: Chaitanya Chapin Confirmed by:MALACHI JOE MD PATIENT NAME: JOHN TRINIDAD [facility]
[2024-04-30 18:24] LABS: Absolute Lymphocytes (CBC) 0.5 K/uL (0.7-4.9); Absolute Monocytes 0.8 K/uL (0.1-1.3); Absolute Neutrophil 6.2 K/uL (1.8-8.0); Basophils % 0.3 % (0-1.3); Hematocrit 37.5 % (36.0-45.0); Lymphocytes % 6.2 % (15.3-44.8); MCHC 34.6 g/dL (32.0-36.0); MCV 86.8 fL (80-100); MPV 9.4 fL (7.6-11.3); Monocytes % 10.8 % (3.3-12.3); Neutrophils % 82.7 % (41.7-73.7); Nucleated Red Blood Cells % 0.1 % (0-0); Platelets 207 thou/uL (152-406); RBC Red Blood Cell Count 4.32 M/uL (3.86-4.86); Red Cell Distribution Width 14.3 % (12.1-15.2)
--- NOTE | 2024-04-30 18:34 | RAD REPORT ---
EXAMINATION: TWO VIEW CHEST XR CLINICAL INDICATION: Cough;Congestion TECHNIQUE: 2 views of the chest was performed. COMPARISON: 08/10/2023 FINDINGS: The lungs are hyperexpanded suggesting COPD. The heart is normal in size. No displaced fractures evid ent. Small hiatal hernia likely present. IMPRESSION: COPD is suspected without acute finding identified.
[2024-04-30 18:37] LABS: Anion Gap 5.2 mEq/L (5.0-15.0); Potassium 3.2 mEq/L (3.5-5.1)
[2024-04-30 18:39] LABS: Influenza A Ag Positive; Influenza B Ag Negative; SARS-CoV-2 Antigen Rapid Res Negative (Negative)
[2024-04-30] MEDS ORDERED: IPRATROPIUM BROM 0.5MG/2.5ML ONE (19:14)
[2024-04-30] MEDS ORDERED: ONDANSETRON 4 MG/2 ML VIAL ONE (19:14)
[2024-04-30] MEDS ORDERED: NA CHLORIDE 0.9% 1,000 ML ONE (19:14)
[2024-04-30] MEDS ORDERED: ALBUTEROL 2.5 MG/3 ML NEB SOL ONE (19:14)
[2024-04-30] MEDS ORDERED: KETOROLAC 30 MG/ML INJ ONE (19:14)
--- NOTE | 2024-04-30 20:07 | ER ---
Nurse's Notes [facility] Name: Mira Trinidad Age: 38 yrs Sex: Female : 1985 Arrival Date: 04/30/2024 Time: 17:39 Bed DX1 Private MD: Diagnosis: Influenza due to identified novel influenza A virus with gastrointestinal manifestations Presentation: 04/30 17:51 Chief complaint: Patient states: [place], cough, congestion, muscle spasms, N/V/D for 2 ll1 days. Coronavirus screen: Client denies travel out of the [place] in the last 14 days. congestion, cough unrelated to allergies, diarrhea, fatigue, fever, headache, muscle pain, nausea, sore throat, Client presents with at least one sign or symptom that may indicate coronavirus-19. Standard/surgical mask placed on the client. Ebola Screen: Patient denies travel to an Ebola-affected area in the 21 days before illness onset. Initial Sepsis Screen: Does the patient meet any 2 criteria? No. Patient's initial sepsis screen is negative. Does the patient have a suspected source of infection? No. Patient's initial sepsis screen is negative. Risk Assessment: Do you want to hurt yourself or someone else? Patient reports no desire to harm self or others. Onset of symptoms was April 29, 2024. 17:51 Method Of Arrival: Ambulatory ll1 17:51 Acuity: MARK ANTHONY 3 ll1 Triage Assessment: 17:54 General: Appears uncomfortable, Behavior is calm, cooperative, appropriate for age. ss General: Reports feeling ill for fatigue for. Pain: Complains of pain in head Quality of pain is described as aching. Neuro: Reports headache weakness. Respiratory: Reports cough that is. GI: Reports diarrhea, nausea, vomiting. Musculoskeletal: Reports body aches. 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 - Social history:: Smoking status: Patient reports the use of cigarette tobacco products, smokes one-half pack cigarettes per day. Screenin:30 [facility] ED Fall Risk Assessment (Adult) History of falling in the last 3 months, vc1 including since admission No falls in past 3 months (0 pts) Confusion or Disorientation No (0 pts) Intoxicated or Sedated No (0 pts) Impaired Gait No (0 pts) Mobility Assist Device Used No (0 pt) Altered Elimination No (0 pt) Score/Fall Risk Level 0 - 2 = Low Risk Oriented to surroundings, Maintained a safe environment, Educated pt \T\ family on fall prevention, incl call for assistance when getting out of bed. Abuse screen: Denies threats or abuse. Nutritional screening: No deficits noted. Tuberculosis screening: No symptoms or risk factors identified. Assessment: 19:30 General: Appears in no apparent distress. uncomfortable, ill, well groomed, Behavior is vc1 calm, cooperative, appropriate for age. Pain: Complains of pain in headache. Neuro: Level of Consciousness is awake, alert, obeys commands, Oriented to person, place, time, situation, Appropriate for age Reports headache. Cardiovascular: Capillary refill < 3 seconds Patient's skin is warm and dry. Respiratory: Reports cough that is persistent Airway is patent Respiratory effort is even, unlabored, Respiratory pattern is regular, symmetrical. : No deficits noted. No signs and/or symptoms were reported regarding the genitourinary system. EENT: Reports nasal congestion. Derm: Skin is intact, is healthy with good turgor, Skin is dry, Skin is normal, Skin temperature is warm. Musculoskeletal: Circulation, motion, and sensation intact. Range of motion: intact in all extremities. 20:55 Reassessment: Patient appears in no apparent distress at this time. Patient and/or vc1 family updated on plan of care and expected duration. Pain level reassessed. Patient is alert, oriented x 3, equal unlabored respirations, skin warm/dry/pink. Patient states feeling better. Patient states symptoms have improved. GI: Abdomen is round non-distended. Vital Signs: 17:51 BP 129 / 99; Pulse 114; Resp 17; Temp 98.6; Pulse Ox 98% ; Weight 65.77 kg; Height 5 ll1 ft. 6 in. ; Pain 8/10; 20:51 BP 102 / 56; Pulse 114; Resp 20; Temp 99.8; Pulse Ox 98% ; vc1 17:51 Body Mass Index 23.40 (65.77 kg, 167.64 cm) ll1 17:51 Pain Scale: Adult ll1 ED Course: 17:44 Patient arrived in ED. al6 17:45 Livia Hill PA-C [facility]. sb4 17:45 Flavia Francois MD is Attending Physician. sb4 17:51 Arm band placed on. ss 17:52 Triage completed. ll1 18:09 Strep Sent. bc6 18:10 BMP Sent. bc6 18:10 CBC with Diff Sent. bc6 18:10 Initial lab(s) drawn, by me, sent to lab. COVID swab sent to lab. Flu and/or RSV swab bc6 sent to lab. Strep swab sent to lab. Inserted saline lock: 20 gauge in right antecubital area, using aseptic technique. Blood collected. Flushed with 10 mL NS. 18:29 Chest Pa And Lat (2 Views) XRAY In Process Unspecified. EDMS 19:30 Patient has correct armband on for positive identification. placed in diagnostic chair. vc1 19:30 Provided Education on: Tamiflu. vc1 20:55 No provider procedures requiring assistance completed. IV discontinued, intact, vc1 bleeding controlled, No redness/swelling at site. Pressure dressing applied. Administered Medications: 19:23 Drug: Ondansetron IVP 4 mg IVP once; over 2 minutes Route: IVP; Site: right antecubital;vc1 20:50 Follow up: Response: No adverse reaction; Marked relief of symptoms; Nausea is decreasedvc1 19:23 Drug: Ketorolac IVP 15 mg IVP once Route: IVP; Site: right antecubital; vc1 20:51 Follow up: Response: No adverse reaction; Marked relief of symptoms vc1 19:23 Drug: DuoNeb Nebulize (3:1) (2.5 mg - 0.5 mg) 3 ml Nebulizer once Route: Nebulizer; vc1 20:51 Follow up: Response: No adverse reaction; Marked relief of symptoms vc1 19:24 Drug: NS 0.9% IV 1000 ml IV at 1000 ml once; to be given as a bolus over 60 minutes vc1 Route: IV; Rate: 1000 ml; Site: right antecubital; 20:24 Follow up: IV Status: Completed infusion; IV Intake: 1000ml vc1 20:50 Drug: Oseltamivir PO 75 mg PO once Route: PO; vc1 20:51 Follow up: Response: Medication administered at discharge. vc1 Medication: 20:54 VIS not applicable for this client. vc1 Intake: 20:24 IV: 1000ml; Total: 1000ml. vc1 Outcome: 20:07 Discharge ordered by . sb4 20:55 Discharged to home ambulatory, with significant other, vc1 20:55 Condition: stable 20:55 Discharge instructions given to patient, Instructed on discharge instructions, follow up and referral plans. medication usage, Demonstrated understanding of instructions, follow-up care, medications, Prescriptions given X 3, 20:58 Patient left the ED. vc1 Signatures: Dispatcher [employer] EDMS Britni Beckwith RN Shaheen Tobin RN RN ll1 Unique Alegria RN RN vc1 Livia Hill, EVELYN PACarri bolton4 Elizabeth Trammell 6 Beverley Rebollar al6 Corrections: (The following items were deleted from the chart) 18:25 18:09 Influenza Screen (A \T\ B)+BA.LAB.BRZ drawn and sent. [facility] EDMS 18:25 18:09 SARS-COV-2 Antigen Rapid+I.LAB.BRZ drawn and sent. [facility] EDVA
--- NOTE | 2024-04-30 20:07 | EDPHYS ---
Physician Documentation [facility] Name: Mira Trinidad Age: 38 yrs Sex: Female : 1985 Arrival Date: 04/30/2024 Time: 17:39 Bed DX1 Private MD: ED Physician Flavia Francois HPI: 04/30 17:58 This 38 yrs old Female presents to ER via Ambulatory with complaints of Flu Symptoms, sb4 Nausea/Vomiting/Diarrhea. 17:58 Onset: The symptoms/episode began/occurred yesterday. Associated signs and symptoms: sb4 Pertinent positives: fever, Pertinent negatives: abdominal pain. The patient has not experienced similar symptoms in the past. The patient has not recently seen a physician. 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 - Social history:: Smoking status: Patient reports the use of cigarette tobacco products, smokes one-half pack cigarettes per day. ROS: 17:58 Cardiovascular: Negative for chest pain, palpitations, and edema, sb4 17:58 Constitutional: Positive for fever, 17:58 Respiratory: Positive for cough, shortness of breath, 17:58 Abdomen/GI: Positive for nausea, vomiting, and diarrhea, Exam: 17:59 Head/Face: Normocephalic, atraumatic. Eyes: Extra-ocular motions intact. Periorbital sb4 areas with no swelling, redness, or edema. Respiratory: No increased work of breathing, no retractions or nasal flaring. Abdomen/GI: Soft, non-tender, no distension. Skin: Warm, dry with normal turgor. Normal color with no rashes, no lesions, and no evidence of cellulitis. 17:59 Constitutional: The patient appears alert, awake, obviously ill, 17:59 ENT: TM's: erythema, that is mild, on the right, Mouth: Oral mucosa: dry, Posterior pharynx: erythema, that is moderate, exudate, is not appreciated, 17:59 Cardiovascular: Rate: tachycardic, Rhythm: regular, Vital Signs: 17:51 BP 129 / 99; Pulse 114; Resp 17; Temp 98.6; Pulse Ox 98% ; Weight 65.77 kg; Height 5 ll1 ft. 6 in. ; Pain 8/10; 20:51 BP 102 / 56; Pulse 114; Resp 20; Temp 99.8; Pulse Ox 98% ; vc1 17:51 Body Mass Index 23.40 (65.77 kg, 167.64 cm) ll1 17:51 Pain Scale: Adult ll1 MDM: 17:45 Medical Screening Exam initiated sb4 19:07 Data reviewed: vital signs, nurses notes, lab test result(s), radiologic studies, and sb4 as a result, I will discharge patient. Counseling: I had a detailed discussion with the patient and/or guardian regarding the historical points, exam findings, and any diagnostic results supporting the discharge/admit diagnosis, the presence of at least one elevated blood pressure reading (>120/80) during this emergency department visit, lab results, radiology results, the need for outpatient follow up, for definitive care, to return to the emergency department if symptoms worsen or persist or if there are any questions or concerns that arise at home. 04/30 17:57 Order name: CBC with Diff; Complete Time: 18:30 sb4 04/30 17:57 Order name: BMP; Complete Time: 18:39 sb4 04/30 18:20 Order name: Group A Streptococcus RapidSc; Complete Time: 18:37 EDMS 04/30 18:22 Order name: COVID-19 Ag + Flu A+B Ag; Complete Time: 18:40 EDMS 04/30 18:37 Order name: Throat Culture EDMS 04/30 17:57 Order name: Chest Pa And Lat (2 Views) XRAY; Complete Time: 18:37 sb4 04/30 17:57 Order name: IV Start; Complete Time: 18:10 sb4 Administered Medications: 19:23 Drug: Ondansetron IVP 4 mg IVP once; over 2 minutes Route: IVP; Site: right antecubital;vc1 20:50 Follow up: Response: No adverse reaction; Marked relief of symptoms; Nausea is decreasedvc1 19:23 Drug: Ketorolac IVP 15 mg IVP once Route: IVP; Site: right antecubital; vc1 20:51 Follow up: Response: No adverse reaction; Marked relief of symptoms vc1 19:23 Drug: DuoNeb Nebulize (3:1) (2.5 mg - 0.5 mg) 3 ml Nebulizer once Route: Nebulizer; vc1 20:51 Follow up: Response: No adverse reaction; Marked relief of symptoms vc1 19:24 Drug: NS 0.9% IV 1000 ml IV at 1000 ml once; to be given as a bolus over 60 minutes vc1 Route: IV; Rate: 1000 ml; Site: right antecubital; 20:24 Follow up: IV Status: Completed infusion; IV Intake: 1000ml vc1 20:50 Drug: Oseltamivir PO 75 mg PO once Route: PO; vc1 20:51 Follow up: Response: Medication administered at discharge. vc1 Disposition Summary: 04/30/24 20:07 Discharge Ordered Notes: Location: Home sb4 Problem: new sb4 Symptoms: have improved sb4 Condition: Stable sb4 Diagnosis - Influenza due to identified novel influenza A virus with gastrointestinal sb4 manifestations Followup: sb4 - With: Emergency Department - When: As needed - Reason: Trouble breathing, Worsening of condition Discharge Instructions: - Discharge Summary Sheet sb4 - Influenza, Adult sb4 Forms: - Work release form sb4 - Patient Portal Instructions sb4 - Leadership Thank You Letter sb4 Prescriptions: - albuterol sulfate 90 mcg/actuation Inhalation HFA Aerosol Inhaler - inhale 2 puff INHALATION route every 4 hours PRN wheezing/shortness of breath; sb4 1 Applicator; Refills: 0, Product Selection Permitted - Tamiflu 75 mg Oral capsule - take 1 tablet ORAL route every 12 hours for 5 days; 9 tablet; Refills: 0, sb4 Product Selection Permitted - ondansetron 8 mg Oral Tablet,disintegrating - take 1 tablet ORAL route every 8 hours; 10 tablet; Refills: 0, Product sb4 Selection Permitted Signatures: Dispatcher [employer] Shaheen Hoover RN RN ll1 Unique Alegria RN RN vc1 Livia Hill PA-C PA-C sb4 Corrections: (The following items were deleted from the chart) 17:59 17:58 Constitutional: Positive for sb4 sb4 18:25 17:58 SARS-COV-2 Antigen Rapid+I.LAB.BRZ ordered. EDMS EDMS 18:25 17:58 Influenza Screen (A \T\ B)+BA.LAB.BRZ ordered. EDMS EDMS
[2024-04-30] MEDS ORDERED: OSELTAMIVIR 75 MG CAP PO ONE (20:47)
[2024-05-02 10:18] VITALS: O2SAT 98
[2024-05-02 10:19] VITALS: BP 102/56; TEMP 99.8
== END 2024-04-30 20:58 | disposition home or self-care (01) ==
LOC: ER 17:39
DX: J10.2 Influenza due to other identified influenza virus with gastrointestinal manifestations (principal); F17.210 Nicotine dependence, cigarettes, uncomplicated; Z11.52 Encounter for screening for COVID-19
CPT/HCPCS: 96361; 87070; 85025; 80048; 36415; 71046; 96375; 96374; 99285; 87428; J7613; J7644; J2405; J7030; 0240U